=== PATIENT | female | born 1945 | race Caucasian/White ===

== ENCOUNTER → 2016-02-29 | Outpatient (CLI) | payer MEDICARE ==
[~2016-02-29] MED LIST: /WARF5TA OR; ACET65TA OR; ALLO100T PO; ALPR1TAB3 PO; AMBI5TAB OR; ATEN50TA2 PO; CARV12.5 PO; CO Q100C10 PO; CORE12.5 OR; ELIQ5TAB PO; GLUC850T OR; HYDR25TA6 PO; HYDR25TA8 PO; LEVO100T5 PO; LIPI20TA OR; LISI5TAB OR; LISI5TAB PO; LORA1TAB PO; MAGN64TASA PO; METF850T PO; OMEP40CA2 PO; POTA20TA PO; POTASSIUM CHLORIDE PO; SIMV20TA2 OR; SIMV40TA2 PO; VITA-122 PO; ZOLP10TA2 PO; aldactone; magnesium oxide; omeprazole; pradaxa
[2016-02-29 10:11] LABS: CALCIUM LEVEL 9.2 MG/DL (8.8-10.2); CREATININE FOR GFR 1.25 MG/DL (0.55-1.02); GLOMERULAR FILTRATION RATE 45.1 (>39)
[2016-02-29 10:12] LABS: ALBUMIN 4.1 GM/DL (3.2-5.2); PHOSPHORUS LEVEL 3.3 MG/DL (2.5-4.9)
[2016-02-29 10:24] LABS: POTASSIUM SERUM 5.7 MEQ/L (3.5-5.1)
== END ==
LOC: M LAB 09:08
PROVIDERS: ATTEND Physician Assistant
DX: I50.33 Acute on chronic diastolic (congestive) heart failure (principal)

== ENCOUNTER 2016-03-05 04:43 | Inpatient (IN) | payer MEDICARE ==
[~2016-03-05] VITALS: Ht 165.1 cm; Wt 85.8 kg
[~2016-03-05 04:43] MED LIST changes: -ALLO100T PO; -ALPR1TAB3 PO; -CARV12.5 PO; -CO Q100C10 PO; -ELIQ5TAB PO; -LEVO100T5 PO; -MAGN64TASA PO; -METF850T PO; -OMEP40CA2 PO; -SIMV40TA2 PO; -VITA-122 PO; -ZOLP10TA2 PO
[2016-03-05] MEDS ORDERED: MECLIZINE 12.5 MG TAB As Ordered ONE (05:32)
[2016-03-05 06:00] LABS: BASO # 0.1 K/mm3 (0.0-0.2); BASO % 0.8 % (0.0-1.0); EOS # 0.3 K/mm3 (0.0-0.50); EOS % 3.4 % (0.0-3.0); LARGE UNSTAINED CELL # 0.2 K/mm3 (0.0-0.4); LARGE UNSTAINED CELL % 1.8 % (0.0-4.0); LYMPH # 1.7 K/mm3 (1.5-4.5); LYMPH % 16.2 % (24.0-44.0); MEAN CORPUSCULAR HGB CONC 31.4 g/dl (32.0-36.5); MONO # 0.3 K/mm3 (0.0-0.8); MONO % 3.3 % (0.0-5.0); NEUTROPHILS # 6.9 K/mm3 (1.8-7.7); NEUTROPHILS % 74.5 % (36.0-66.0); PLATELET COUNT, AUTOMATED 228 k/mm3 (150-450); RED CELL DISTRIBUTION WIDTH 17.7 % (11.5-14.5); WHITE BLOOD COUNT 9.3 K/mm3 (4.0-10.0)
--- NOTE | 2016-03-05 06:10 | REPUSA ---
CLINICAL HISTORY: Headache. TECHNIQUE: Multiple axial CT images were obtained through the brain without IV contrast material. COMMENTS: Left frontal chronic encephalomalcia. There is normal configuration of sella turcica. There are no intra or extra-axial collections. There is no mass effect or midline shift. There is no evidence of hematoma formation. No hydrocephalus is p resent. The ventricles are symmetrical. No abnormal calcifications are present. There is diffuse age-appropriate cerebellar and cerebral atrophy with proportionally dilated ventricl es and cortical sulci. There are bilateral periventricular and subcortical white matter hypolucencies compatible with mild c hronic microvascular disease. Otherwise, no significant focal abnormalities are seen either in the posterior fossa or supratentoria l compartment. IMPRESSION: 1. Age-appropriate cerebellar and cerebral atrophy. Left frontal chronic encephalomalcia. 2. Mild chronic microvascular disease. 3. No evidence of acute intracranial pathology. No change from 11/17/2010. Thank you for your kind referral of this patient.
[2016-03-05 06:11] LABS: ANION GAP 10 MEQ/L (8-16); BLOOD UREA NITROGEN 29 MG/DL (7-18); CALCIUM LEVEL 9.3 MG/DL (8.8-10.2); CARBON DIOXIDE LEVEL 20 MEQ/L (21-32); CHLORIDE LEVEL 110 MEQ/L (98-107); CREATININE FOR GFR 0.94 MG/DL (0.55-1.02); GLOMERULAR FILTRATION RATE > 60.0 (>39); GLUCOSE, FASTING 157 MG/DL (83-110); POTASSIUM SERUM 5.1 MEQ/L (3.5-5.1); SODIUM LEVEL 140 MEQ/L (136-145)
[2016-03-05] MEDS ORDERED: CARVedilol 6.25 MG TAB As Ordered ONE (06:26)
[2016-03-05] MEDS ORDERED: LABETALOL HCL 100 MG/20 ML VIAL As Ordered ONE (06:39)
[2016-03-05] MEDS ORDERED: CARV12.5 PO (07:43)
[2016-03-05] MEDS ORDERED: LEVO100T5 PO (07:43)
[2016-03-05] MEDS ORDERED: ELIQ5TAB PO (07:43)
[2016-03-05] MEDS ORDERED: METF850T PO (07:43)
[2016-03-05] MEDS ORDERED: ZOLP10TA2 PO (07:43)
[2016-03-05] MEDS ORDERED: MAGN64TASA PO (07:43)
[2016-03-05] MEDS ORDERED: OMEP40CA2 PO (07:43)
[2016-03-05] MEDS ORDERED: ALLO100T PO (08:20)
[2016-03-05] MEDS ORDERED: ALPR1TAB3 PO (08:20)
[2016-03-05] MEDS ORDERED: SIMV40TA2 PO (08:20)
[2016-03-05] MEDS ORDERED: CO Q100C10 PO (08:22)
[2016-03-05] MEDS ORDERED: VITA-122 PO (08:22)
--- NOTE | 2016-03-05 08:30 | REP ---
PA and lateral chest: Comparison is 11/25/2010. Mild cardiomegaly and single lead pacemaker are again noted, unchanged. There are no acute infiltrates or pleural effusions. There are no masses. The stanislav, mediastinum, and bony thorax are unremarkable. Impression: No interval change. Chronic cardiomegaly and pacemaker are again noted. No acute cardiopulmonary findings are identified. Signed by Stu Harris MD 03/05/2016 08:22 A
[2016-03-05] MEDS: PANTOPRAZOLE 40MG TAB (PROTONIX) PO SCH (09:00)
[2016-03-05] MEDS: VITAMIN D 1,000 INTERNATIONAL UNITS TABLET PO SCH (09:00)
[2016-03-05] MEDS: APIXABAN 5 MG TAB (ELIQUIS) PO SCH ×2 (09:00→21:00)
[2016-03-05] MEDS ORDERED: CARVedilol 12.5 MG TAB PO SCH (09:00)
[2016-03-05] MEDS ORDERED: ONDANSETRON 4MG/2ML VIAL (J2405) IV PRN (09:45)
[2016-03-05] MEDS ORDERED: GLUCOSE 4 GM CHEW TABLET PO PRN (09:45)
[2016-03-05] MEDS ORDERED: zolPIDEM TARTRATE 10MG TAB PO PRN (09:45)
[2016-03-05] MEDS ORDERED: GLUCAGON FOR INJ 1 MG VIAL (J1610) SC PRN (09:45)
[2016-03-05] MEDS ORDERED: DEXTROSE 50% 50 ML SYRINGE IV PRN (09:45)
[2016-03-05 10:50] LABS: T UPTAKE 41 % (30-39); THYROXINE (T4) 14.5 UG/DL (4.5-12.0)
[2016-03-05] MEDS: HumaLOG INSULIN (NovoLOG) PER UNIT SC SCH ×3 (12:00→21:00)
[2016-03-05] MEDS: hydrALAZINE INJ 20 MG/ML VIAL IV SCH ×2 (12:00→17:29)
[2016-03-05] MEDS ORDERED: HumaLOG INSULIN (NovoLOG) PER UNIT As Ordered ONE (12:40)
[2016-03-05] MEDS: LEVOTHYROXINE 0.05 MG TAB (50 MCG) PO SCH (15:43)
[2016-03-05 16:00] VITALS: BP 185/83
--- NOTE | 2016-03-05 16:35 | HPEPDOC ---
General Date of Admission Mar 05, 2016 at 09:34 Primary Care Physician: Wojciech Dumont Attending Physician: SORAYA BACA MD Chief Complaint The patient is a 70-year-old female admitted with a reason for visit of Hypertensive Urgency Light Headed. Source: Patient, Family Exam Limitations: No limitations Timing/Duration: Day(s) (2) Severity: Moderate Associated Symptoms: Other (diarrhea) History of Present Illness 70 F h/o DMII, GERD, CVA mild right sided weakness, HLD, HTN, hypothyroid, afib on Eliquis, from home baseline ambulatory, presented with worsening lightheadedness for 2-3 days, having to hold on to wall, fall Oct 2015 without injury, recent adjustment of diuretics by Dr Davis's office. Reported 2 days of diarrhea 5 times daily and nausea with dry heaving no vomiting. Denied chest pain, extremities weakness,Denied sick contact or recent travel. No fever or chill Home Medications Scheduled (Co Q 10) 100 Mg Cap 100 MG PO DAILY (Reported) Allopurinol (Allopurinol) 100 Mg Tab 100 MG PO QHS (Reported) Apixaban Base (Eliquis) 5 Mg Tab 5 MG PO BID (Reported) Carvedilol (Carvedilol) 12.5 Mg Tab 12.5 MG PO BID (Reported) Cholecalciferol (Vitamin D3) 1,000 Unit Tab 1,000 UNIT PO DAILY (Reported) Levothyroxine Sodium (Synthroid) 100 Mcg Tab 100 MCG PO DAILY (Reported) Magnesium Chloride (Mag64) 64 Mg Tabcr 64 MG PO BID (Reported) Metformin Hydrochloride (Metformin HCl) 850 Mg Tab 850 MG PO BID (Reported) Omeprazole (Omeprazole) 40 Mg Cap 40 MG PO DAILY (Reported) Simvastatin - High Dose (Simvastatin) 40 Mg Tab 40 MG PO QHS (Reported) Scheduled PRN Alprazolam (Alprazolam) 1 Mg Tab 1 MG PO QID PRN PRN ANXIETY (Reported) Zolpidem Tartrate (Zolpidem Tartrate) 10 Mg Tab 10 MG PO QHS PRN PRN SLEEP ( Reported) Allergies Coded Allergies: Ciprofloxacin (Unverified Allergy, Unknown, HIVES, 03/05/16) Sulfa Drugs (Verified Allergy, Unknown, 05/14/12) Sulfa Drugs Cross Reactors (Verified Allergy, Unknown, 05/14/12) Past Medical History Medical History DMII, GERD, a fib, Gout, HCL, HTN, hypothyroidism, CVA Family History Significant Family History: Noncontributory Social History * Smoker: former Smoker (Quite 5 years ago, 1PPD for 30 years) Alcohol: denies Drugs: denies Recent Travel/Sick Contacts: Denies: Recent sick contacts, Recent travel Psychosocial History: No pertinent psych hx Review of Symptoms Constitutional: Denies: Chills, Fever, Night Sweats, Weakness Eyes: Denies: Pain, Vision change ENT: Denies: Ear Pain, Head Aches Skin: Denies: Lesions, Rash Pulmonary: Denies: Cough, Dyspnea Cardiovascular: Denies: Chest Pain, Orthopnea, Palpitations Gastrointestinal: Reports: Diarrhea, Nausea, Denies: Abdominal Pain, Vomiting Genitourinary: Denies: Dysuria, Frequency Hematologic: Denies: Bleeding Excessively, Bruising Endocrine: Denies: Polydipsia, Polyphagia Musculoskeletal: Denies: Neck Pain Neurological: Reports: Other Symptoms (lightheaded) Psych: Reports: Mood Normal Physical Examination General Exam: Positive: Alert, Cooperative, No Acute Distress Eye Exam: Positive: PERRLA ENT Exam: Positive: Atraumatic, Mucous membr. moist/pink Neck Exam: Positive: JVD, Supple Chest Exam: Positive: Clear to auscultation, Normal air movement Heart Exam: Positive: Normal S1, Normal S2, Rate Normal, Regular Rhythm Abdomen Exam: Positive: Normal bowel sounds, Soft, Negative: Mass, Tenderness Extremity Exam: Negative: Clubbing, Cyanosis, Edema Neuro Exam: Positive: Cranial Nerves 3-12 NL, Normal Speech Vital Signs 184/81 HR 65 RR 20 temp 97.2 Pul Ox 98% Laboratory Data Labs 24H Laboratory Tests 2 03/05/16 05:20: Anion Gap 10, White Blood Count 9.3, Red Blood Count 4.36, Hemoglobin 11.8L, Hematocrit 37.5, Mean Corpuscular Volume 86.0, Mean Corpuscular Hemoglobin 27.0 , Mean Corpuscular Hemoglobin Concent 31.4L, Red Cell Distribution Width 17.7H, Platelet Count 228, Neutrophils (%) (Auto) 74.5H, Lymphocytes (%) (Auto) 16.2L, Monocytes (%) (Auto) 3.3, Eosinophils (%) (Auto) 3.4H, Basophils (%) (Auto) 0.8 , Neutrophils # (Auto) 6.9, Lymphocytes # (Auto) 1.7, Monocytes # (Auto) 0.3, Eosinophils # (Auto) 0.3, Basophils # (Auto) 0.1, Blood Urea Nitrogen 29H, Creatinine 0.94, Sodium Level 140, Potassium Level 5.1, Chloride Level 110H, Carbon Dioxide Level 20L, Calcium Level 9.3, Total Creatine Kinase 31, Creatine Kinase MB 1.1, Creatine Kinase MB Relative Index 3.54, Free Thyroxine Index 5.9H , Glomerular Filtration Rate > 60.0, Large Unclassified Cells # 0.2, Large Unclassified Cells % 1.8, Thyroid Stimulating Hormone (TSH) 0.018L, Thyroxine ( T4) 14.5H, Triiodothyronine (T3) Uptake 41H, Troponin I < 0.02 03/05/16 12:01: Bedside Glucose (Misc Panel) 227H CBC/BMP Laboratory Tests 03/05/16 05:20 Calcium Level 9.3, Total Creatine Kinase 31, Red Blood Count 4.36, Mean Corpuscular Volume 86.0, Mean Corpuscular Hemoglobin 27.0, Mean Corpuscular Hemoglobin Concent 31.4 L, Red Cell Distribution Width 17.7 H, Neutrophils (%) ( Auto) 74.5 H, Lymphocytes (%) (Auto) 16.2 L, Monocytes (%) (Auto) 3.3, Eosinophils (%) (Auto) 3.4 H, Basophils (%) (Auto) 0.8, Neutrophils # (Auto) 6.9 , Lymphocytes # (Auto) 1.7, Monocytes # (Auto) 0.3, Eosinophils # (Auto) 0.3, Basophils # (Auto) 0.1 Microbiology Microbiology 03/05/16 Gastrointestinal Tract Panel (PCR), Received Pending 03/05/16 Stool Lactoferrin, Received Pending (1) Hypertensive urgency Status: Acute Assessment & Plan: c/w coreg, HCTZ added give labetalol in ER Hydralazine IV if sBP >160 goal bp for 24hr, SBP 140-160, DBP 90-100 CE x3 (2) Light headed Status: Acute Assessment & Plan: possibly related to HTN monitor BP PT eval repeat Ct tomorrow (3) Nausea Status: Acute Assessment & Plan: possibly related to HTN urgency monitor BP, zofran monitor (4) Diarrhea Status: Acute Assessment & Plan: stool and GI panel (5) Hypothyroid Status: Chronic Response to Treatment: Uncontrolled Assessment & Plan: elevated thyroid function thyroid profile appreciated need outpatient followup Synthroid adjusted (6) HTN (hypertension) Status: Acute Assessment & Plan: see above (7) DMII (diabetes mellitus, type 2) Status: Chronic Assessment & Plan: hold oral med insulin as per protocol f/u fs (8) CVA (cerebral vascular accident) Status: Chronic Assessment & Plan: pt supportive care on Eliquis (9) GERD (gastroesophageal reflux disease) Status: Chronic Assessment & Plan: ppi (10) Gout Status: Chronic (11) HLD (hyperlipidemia) Status: Chronic Assessment & Plan: statin (12) Afib Status: Chronic Assessment & Plan: coreg and Eliquis paced rhythm on EK Plan / VTE VTE Prophylaxis Ordered?: Yes (Eliquis) Plan Plan PT, repeat CT and BP control CASI MEDRANO MD Mar 05, 2016 16:34
[2016-03-05] MEDS ORDERED: hydroCHLOROthiazide 25 MG TAB As Ordered ONE (17:27)
[2016-03-05] MEDS ORDERED: hydrALAZINE INJ 20 MG/ML VIAL As Ordered ONE (17:27)
[2016-03-05] MEDS: hydroCHLOROthiazide 25 MG TAB PO SCH (17:29)
[2016-03-05 17:45] VITALS: BP 160/72
--- NOTE | 2016-03-05 17:49 | EDDOCDS ---
Nurse's Notes [facility] Name: Suzanne Naranjo Age: 70 yrs Sex: Female : 1945 Arrival Date: 03/05/2016 Time: 04:43 Bed 19 Private MD: Diagnosis: Essential (primary) hypertension-Hypertensive Urgency Presentation: 03/05 04:50 Presenting complaint: Patient states: dizziness and nausea since after dinner last nn1 night. Reports gait is unsteady since tonight as well. No vomiting at this time. Suicide/Homicide risk assessment- the patient denies having any suicidal and/or homicidal ideations and does not present with any other emotional, behavioral or mental health complaints. 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 Transition of care: patient was not received from another setting of care. 04:50 Acuity: HEATHER Level 3 nn1 04:50 Method Of Arrival: Walkin/Carried/Asstd nn1 07:56 Adult Sepsis Screening: The patient does not have new or worsening altered mentation. jc4 Patient's respiratory rate is less than 22. Systolic blood pressure is greater than 100. Patient has a qSOFA score of 0- Negative Sepsis Screen. Triage Assessment: 04:56 General: Appears in no apparent distress, Patient reports Dr. Pinzon (Dr. Davis' office) nn1 continues to change her meds. Reports having blood work taken last week that showed low potassium levels. Patient has appointment for recheck on Thursday. . Pain: Denies pain. The patient is triaged at the bedside. See Assessment in Nurses Notes section of ED record. GI: Reports diarrhea, nausea, Patient reports abdominal discomfort due to dry heaving. Reports dizziness. Derm: Skin is pink, warm & dry. Historical: - Allergies: Cipro PO; Codeine Sulfate; SULFA (SULFONAMIDES); - Home Meds: 1. levothyroxine 100 mcg Oral cap 1 cap once daily (Last dose: 03/04/2016 08:00) 2. simvastatin 40 mg Oral tab 1 tab nightly (Last dose: 03/04/2016 22:00) 3. carvedilol 12.5 mg oral tab 1 tab 2 times per day (Last dose: 03/04/2016 22:00) 4. metformin 850 mg Oral tab 1 tab 2 times per day (Last dose: 03/04/2016 22:00) 5. omeprazole 40 mg Oral cpDR 1 cap once daily (Last dose: 03/04/2016 13:00) 6. mag64 DR - 64mg 2x per day (Last dose: 03/04/2016 22:00) 7. Eliquis 5 mg oral tab 1 tab 2 times per day (Last dose: 03/04/2016 22:00) 8. allopurinol 100 mg Oral tab 1 tab nightly (Last dose: 03/04/2016 22:00) - PMHx: Diabetes - NIDDM: controlled; GERD; Gout; Hypercholesterolemia; Hypertension; Hypothyroidism; Stroke; - PSHx: Pacemaker Insertion; - Social history: Smoking status: Patient states was never smoker of tobacco. No barriers to communication noted, The patient speaks fluent Swazi, Speaks appropriately for age. - Family history: Not pertinent. - : The pt / caregiver states he / she is on anticoagulants: Eliquis The pt / caregiver states he / she is on anticoagulants: Home medication list is obtained from the patient, pill bottles. - Exposure Risk Screening:: None identified. Screenin:02 Screening information is obtained from the patient. Fall risk: At risk due to gait nn1 disturbance. Assistance ADL's: requires no assistance with activities of daily living. Abuse/DV Screen: The patient / caregiver reports he/she is: not in a situation that causes fear, pain or injury. Nutritional screening: Diabetic diet. Advance Directives: Currently, there is a health care proxy, Mely Naranjo, daughter . home support is adequate. Assessment: 05:21 General: Appears in no apparent distress, comfortable, well nourished, well groomed, kas2 Behavior is appropriate for age, cooperative. Pain: Denies pain. Neurological: Level of Consciousness is awake, alert, Oriented to person, place, time, Sulfur Burner are equal bilaterally Moves all extremities. Speech is normal, Facial symmetry appears normal, Pupils are PERRLA. Respiratory: Airway is patent Respiratory effort is even, unlabored, Respiratory pattern is regular, symmetrical, Breath sounds are clear bilaterally. Derm: Skin is intact, Skin is dry, Skin is pale, Skin temperature is warm. Injury Description: No known injury. 05:21 Cardiovascular: Capillary refill < 3 seconds Heart tones S1 S2 present Rhythm is sinus kas2 rhythm No ectopy. 05:30 General: Patient gone to CT via stretcher with tech.. kas2 05:40 General: Patient back from CT scan via stretcher with tech. Resettled in bed. . kas2 06:21 General: Appears in no apparent distress, comfortable, Behavior is appropriate for age, kas2 cooperative. Pain: Denies pain. Neurological: Level of Consciousness is awake, alert, Oriented to person, place, time. Cardiovascular: Rhythm is sinus rhythm No ectopy. Respiratory: Airway is patent Respiratory effort is even, unlabored, Respiratory pattern is regular, symmetrical. Derm: Skin is intact, Skin is dry, Skin is pink, warm & dry. Skin temperature is warm. 07:55 General: Appears in no apparent distress, comfortable, Behavior is cooperative, jc4 pleasant. Pain: Denies pain. Neurological: Level of Consciousness is awake, alert, Oriented to person, place, time, Sulfur Burner are equal bilaterally Moves all extremities. Speech is normal, Facial symmetry appears normal, Pupils are PERRLA. Cardiovascular: Rhythm is paced rhythm Chest pain is denied. Cardiovascular: Edema is absent. Respiratory: Airway is patent Respiratory effort is even, unlabored, Respiratory pattern is regular, symmetrical, Breath sounds are clear bilaterally. GI: Abdomen is non- distended Bowel sounds present X 4 quads. Derm: Skin is pink, warm & dry. 07:56 General: Dr. Ignacio in to examine patient. jc4 08:56 General: Patient resting in stretcher watching television, denies dizziness at this ja5 time, no needs at this time, call hendrickson in reach.. 09:50 General: Breakfast tray given. jc4 10:07 General: Patient is eating breakfast, no complaints of dizziness at this time. Call ja5 hendrickson in reach, no needs at this time.. 10:31 General: Patient ambulated to the bedside commode, steady gait, denies dizziness at ja5 this time.. 11:18 General: Patient is currently asleep in stretcher, side rails up, call hendrickson in reach.. ja5 12:40 General: Food tray delivered, patient set up in stretcher, no complaints at this time.. ja5 Vital Signs: 04:58 BP 194 / 77; Pulse 78; Resp 18; Temp 97.5; Pulse Ox 96% on R/A; Weight 82.1 kg; Height nn1 5 ft. 5 in. (165.10 cm); Pain 0/10; 05:10 BP 213 / 94 (auto/); ja5 05:11 BP 203 / 81 (auto/); kas2 05:11 Pulse 76 MON; Pulse Ox 99% ; kas2 05:12 Pulse 62 MON; Pulse Ox 99% ; ja5 05:26 BP 182 / 83 (auto/); kas2 05:26 Pulse 62 MON; Pulse Ox 99% ; kas2 05:38 BP 191 / 79 (auto/); kas2 05:39 Pulse 64 MON; Pulse Ox 99% ; kas2 05:40 BP 212 / 84 (auto/); kas2 05:40 Pulse 70 MON; Pulse Ox 99% ; kas2 05:41 BP 194 / 83 (auto/); kas2 05:41 Pulse 62 MON; Pulse Ox 99% ; kas2 05:45 BP 191 / 79 RA Supine; Pulse 77; kas2 05:45 BP 212 / 84 RA Sitting; Pulse 65; kas2 05:46 BP 194 / 83 RA Standing; Pulse 62; kas2 06:23 BP 198 / 79 (auto/); kas2 06:24 Pulse 72 MON; Pulse Ox 97% ; kas2 06:24 Resp 20; Temp 98.0(O); Pain 0/10; kas2 06:29 BP 205 / 78 (auto/); kas2 06:29 Pulse 76 MON; kas2 06:34 BP 191 / 88 (auto/); kas2 06:34 Pulse 62 MON; Pulse Ox 98% ; kas2 06:45 BP 180 / 79 (auto/); kas2 06:46 Pulse 68 MON; Pulse Ox 97% ; kas2 07:38 BP 184 / 81; Pulse 65; Resp 20; Temp 97.2(O); Pulse Ox 98% on R/A; Pain 0/10; jc4 07:38 BP 184 / 81 (auto/); ja5 07:38 Pulse 62 MON; ja5 09:06 BP 170 / 76 RA Supine (man/); ja5 11:59 BP 151 / 68 (auto/); jc4 11:59 Pulse 66 MON; jc4 04:58 Body Mass Index 30.12 (82.10 kg, 165.10 cm) nn1 Vitals: 04:58 Log In Time: March 05, 2016 at 04:47. nn1 ED Course: 04:46 Patient visited by Alicia Wen, Reg. hs2 04:46 Patient moved to Waiting hs2 04:51 Triage Initiated nn1 05:03 Iris Silver RN is Primary Nurse. nn1 05:03 Patient moved to 12 nn1 05:10 Patient name changed from Suzanne\S\Ellen\S\Dygert\S\ to Suzanne\S\Sid\S\Dygert. EDMS 05:15 Adam Brunson MD is Attending Physician. br1 05:22 Inserted saline lock: 20 gauge in left antecubital area and blood collected. The kas2 patient tolerated the procedure well. No procedures done that require assistance. 05:23 Patient visited by Iris Silver RN. kas2 05:23 monitor technician on. Pulse ox on. NIBP on. kas2 05:27 Patient visited by Adam Brunson MD. br1 05:31 Basic Metabolic Profile Sent. kas2 05:31 CBC with Diff Sent. kas2 05:31 Cardiac Injury Profile Sent. kas2 05:31 Troponin Sent. kas2 05:34 Patient visited by Iris Silver RN. kas2 05:40 [facility] Payment Agreement was scanned into [employer] and attached to record. pm4 05:47 Patient visited by Iris Silver RN. kas2 05:55 Patient visited by Chester Birmingham PCA. kb5 05:55 EKG done. (by ED staff). Reviewed by Adam Brunson MD. kb5 06:22 Patient visited by Iris Silver RN. kas2 06:32 CT Head Without Contrast Returned. EDMS 06:48 Patient visited by Iris Silver RN. kas2 07:01 Patient visited by Iris Silver RN. kas2 07:13 Arelis Sood is Hospitalizing Provider. br1 07:56 The patient / caregiver is instructed regarding the plan of care and ED course. jc4 07:57 Patient visited by Brianne Raymundo RN. jc4 08:23 Brianne Raymundo RN is Primary Nurse. jc4 08:43 Chest, 2 View (pa\E\lat) Returned. EDMS 08:57 Patient visited by Glenny Guajardo RN. ja5 09:56 Patient moved to Admit Hold [facility] 10:07 Patient visited by Glenny Guajardo RN. ja5 10:31 Patient visited by Glenny Guajardo RN. ja5 11:18 Patient visited by Glenny Guajardo RN. ja5 12:38 Patient visited by Glenny Guajardo RN. ja5 13:12 Primary Nurse role handed off by Brianne Raymundo, KATIE jc4 13:17 Patient moved to 19 [facility] 13:29 T-Sheet-- Draft Copy was scanned into [employer] and attached to record. 17:21 Primary Nurse role handed off by Iris Silver RN [facility] Administered Medications: 05:45 Drug: Meclizine 25 mg [meclizine 12.5 mg tablet (2 tabs)] Route: PO; kas2 06:32 Drug: carvedilol 12.5 mg [carvedilol 6.25 mg tablet (2 tabs)] Route: PO; kas2 06:47 Drug: Labetalol 10 mg [labetalol 5 mg/mL intravenous solution (2 mL)] Route: IVP; Rate: kas2 bolus; Infused Over: 2 mins; Site: left antecubital; Order Results: Lab Order: Basic Metabolic Profile; SPEC'M 03/05/16 05:20 Test: POTASSIUM SERUM; Value: 5.1; Range: 3.5-5.1; Units: MEQ/L; Status: F Test: CHLORIDE LEVEL; Value: 110; Range: 98-107; Abnormal: Above high normal; Units: MEQ/L; Status: F Test: CARBON DIOXIDE LEVEL; Value: 20; Range: 21-32; Abnormal: Below low normal; Units: MEQ/L; Status: F Test: ANION GAP; Value: 10; Range: 8-16; Units: MEQ/L; Status: F Test: CALCIUM LEVEL; Value: 9.3; Range: 8.8-10.2; Units: MG/DL; Status: F Test Note: ; Units are mL/min/1.73 m2 Chronic Kidney Disease Staging per NKF: Stage I & II GFR >=60 Normal to Mildly Decreased Stage III GFR 30-59 Moderately Decreased Stage IV GFR 15-29 Severely Decreased Stage V GFR <15 Very Little GFR Left ESRD GFR <15 on FLOW NURSE Test: GLUCOSE, FASTING; Value: 157; Range: 83-110; Abnormal: Above high normal; Units: MG/DL; Status: F Test: BLOOD UREA NITROGEN; Value: 29; Range: 7-18; Abnormal: Above high normal; Units: MG/DL; Status: F Test: CREATININE FOR GFR; Value: 0.94; Range: 0.55-1.02; Units: MG/DL; Status: F Test: GLOMERULAR FILTRATION RATE; Value: > 60.0; Range: >39; Status: F Test: SODIUM LEVEL; Value: 140; Range: 136-145; Units: MEQ/L; Status: F Test: T UPTAKE; Range: 30-39; Units: %; Status: I Test: THYROXINE (T4); Range: 4.5-12.0; Units: UG/DL; Status: I Test: FREE THYROXINE INDEX; Range: 1.3-4.8; Units: %; Status: I Test: THYROID STIMULATING HORMONE; Range: 0.358-3.740; Units: uIU/ML; Status: I Lab Order: CBC with Diff; SPEC'M 03/05/16 05:20 Test: WHITE BLOOD COUNT; Value: 9.3; Range: 4.0-10.0; Units: K/mm3; Status: F Test: RED BLOOD COUNT; Value: 4.36; Range: 4.00-5.40; Units: M/mm3; Status: F Test: HEMOGLOBIN; Value: 11.8; Range: 12.0-16.0; Abnormal: Below low normal; Units: g/dl; Status: F Test: HEMATOCRIT; Value: 37.5; Range: 36.0-47.0; Units: %; Status: F Test: MEAN CORPUSCULAR VOLUME; Value: 86.0; Range: 80.0-96.0; Units: fl; Status: F Test: MEAN CORPUSCULAR HEMOGLOBIN; Value: 27.0; Range: 27.0-33.0; Units: pg; Status: F Test: MEAN CORPUSCULAR HGB CONC; Value: 31.4; Range: 32.0-36.5; Abnormal: Below low normal; Units: g/dl; Status: F Test: RED CELL DISTRIBUTION WIDTH; Value: 17.7; Range: 11.5-14.5; Abnormal: Above high normal; Units: %; Status: F Test: PLATELET COUNT, AUTOMATED; Value: 228; Range: 150-450; Units: k/mm3; Status: F Test: NEUTROPHILS %; Value: 74.5; Range: 36.0-66.0; Abnormal: Above high normal; Units: %; Status: F Test: LYMPH %; Value: 16.2; Range: 24.0-44.0; Abnormal: Below low normal; Units: %; Status: F Test: MONO %; Value: 3.3; Range: 0.0-5.0; Units: %; Status: F Test: EOS %; Value: 3.4; Range: 0.0-3.0; Abnormal: Above high normal; Units: %; Status: F Test: BASO %; Value: 0.8; Range: 0.0-1.0; Units: %; Status: F Test: LARGE UNSTAINED CELL %; Value: 1.8; Range: 0.0-4.0; Units: %; Status: F Test: NEUTROPHILS #; Value: 6.9; Range: 1.8-7.7; Units: K/mm3; Status: F Test: LYMPH #; Value: 1.7; Range: 1.5-4.5; Units: K/mm3; Status: F Test: MONO #; Value: 0.3; Range: 0.0-0.8; Units: K/mm3; Status: F Test: EOS #; Value: 0.3; Range: 0.0-0.50; Units: K/mm3; Status: F Test: BASO #; Value: 0.1; Range: 0.0-0.2; Units: K/mm3; Status: F Test: LARGE UNSTAINED CELL #; Value: 0.2; Range: 0.0-0.4; Units: K/mm3; Status: F Lab Order: Cardiac Injury Profile; SPEC'M 03/05/16 05:20 Test: CPK CREATINE PHOSPHOKINASE; Value: 31; Range: 26-192; Units: U/L; Status: F Test: CK-MB VALUE MASS; Value: 1.1; Range: 0.0-3.6; Units: NG/ML; Status: F Test: MB/CK RELATIVE INDEX; Value: 3.54; Range: < OR =4; Status: F Test Note: ; DIAGNOSIS CRITERIA MMB ng/ml Relative Index (RI) NON-AMI < or = 5 N/A [place] > 5 < or = 4 AMI > 5 > 4 Lab Order: Troponin; [facility]03/05/16 05:20 Test: TROPONIN I; Value: < 0.02; Range: < 0.10; Units: NG/ML; Status: F Test Note: ; Troponin I Reference Interval for [employer]ens Mantis Vision LOCI: 99th Percentile= 0.00-0.045 ng/ml Risk Stratification: <= 0.10 ng/ml Decreased Risk for Adverse Clinical Events. 0.10-1.50 ng/ml Increased Risk for Adverse Clinical Events. Evaluation of additional criterion and/or repeat testing in 2-6 hours is suggested to rule out myocardial damage. >= 1.50 ng/ml Indicative of Myocardial Injury. Lab Order: STOOL POLYS; [facility]03/05/16 15:31 Test: STOOL LACTOFERRIN-polys by ICA; Value: LACTOFERRIN RESULTS POSITIVE; Abnormal: Abnormal; Status: F Lab Order: THYROID PROFILE; [facility]03/05/16 05:20 Test: T UPTAKE; Value: 41; Range: 30-39; Abnormal: Above high normal; Units: %; Status: F Test: THYROXINE (T4); Value: 14.5; Range: 4.5-12.0; Abnormal: Above high normal; Units: UG/DL; Status: F Test: FREE THYROXINE INDEX; Value: 5.9; Range: 1.3-4.8; Abnormal: Above high normal; Units: %; Status: F Test: THYROID STIMULATING HORMONE; Value: 0.018; Range: 0.358-3.740; Abnormal: Below low normal; Units: uIU/ML; Status: F Lab Order: Fingerstick Blood Sugar; [facility]03/05/16 12:01 Test: BEDSIDE GLUCOSE; Value: 227; Range: 83-110; Abnormal: Above high normal; Units: MG/DL; Status: F Lab Order: Fingerstick Blood Sugar; [facility]03/05/16 17:14 Test: BEDSIDE GLUCOSE; Value: 102; Range: 83-110; Units: MG/DL; Status: F Radiology Order: Chest, 2 View (pa\E\lat) Test: Chest, 2 View (pa\E\lat) REASON FOR EXAMINATION: Shortness of Breath; PA and lateral chest:; ; Comparison is 11/25/2010.; ; Mild cardiomegaly and single lead pacemaker are again noted, unchanged.; ; There are no acute infiltrates or pleural effusions. There are no masses.; ; The stanislav, mediastinum, and bony thorax are unremarkable.; ; Impression:; ; No interval change. Chronic cardiomegaly and pacemaker are again noted.; ; No acute cardiopulmonary findings are identified.; ; ; Signed by; Stu Harris MD 03/05/2016 08:22 A; Radiology Order: CT Head Without Contrast Test: CT Head Without Contrast REASON FOR EXAMINATION: CVA >4.5hrs; ; CLINICAL HISTORY: Headache.; TECHNIQUE: Multiple axial CT images were obtained through the brain without IV contrast material.; COMMENTS:; Left frontal chronic encephalomalcia.; There is normal configuration of sella turcica. There are no intra or extra-axial collections. There; is no mass effect or midline shift. There is no evidence of hematoma formation. No hydrocephalus is p; resent. The ventricles are symmetrical. No abnormal calcifications are present.; There is diffuse age-appropriate cerebellar and cerebral atrophy with proportionally dilated ventricl; es and cortical sulci.; There are bilateral periventricular and subcortical white matter hypolucencies compatible with mild c; hronic microvascular disease.; Otherwise, no significant focal abnormalities are seen either in the posterior fossa or supratentoria; l compartment.; IMPRESSION:; 1. Age-appropriate cerebellar and cerebral atrophy. Left frontal chronic encephalomalcia.; 2. Mild chronic microvascular disease.; 3. No evidence of acute intracranial pathology. No change from 11/17/2010.; Thank you for your kind referral of this patient.; ; ; Outcome: 07:13 Decision to Hospitalize by Provider. br1 17:11 Discharge Assessment: Patient awake and alert. Oriented to person, place and time. aa3 Patient verbalized understanding of disposition instructions. Patient has no functional deficits. patient administered narcotics - no. The following High Risk Discharge criteria are identified: None. Admitted to PCU accompanied by nurse, accompanied by tech, via stretcher, on monitor, with chart. Condition: good. CT Study completed. Admission hand-off: Report called to Charley Louis RN. Property :Personal belongings accompany Pt. 17:47 Patient left the ED. kc3 Signatures: Dispatcher [employer] EDRenae Callejas, RN RN Haylie Javed RN Sheryl Rajput mcp, Reg Reg gb Valencia, Chester, CLOTH BALER CLOTH BALER kb5 Adam Brunson MD MD br1 Castle, Jennifer RN RN jc4 Jacque Kovacs RN RN dsf Asselin, Abby, RN RN aa3 Rubi ReyesRN RN nn1 Marilin LewisRN RN kc3 Alicia Wen, Reg Reg hs2 Iris SilverRN KATIE [facility] Tiago Escobar, Reg Reg pm4 Glenny Guajardo,RN RN ja5 Corrections: (The following items were deleted from the chart) 05:49 05:21 Cardiovascular: Capillary refill < 3 seconds Heart tones S1 S2 present Rhythm is kas2 sinus rhythm No ectopy. [facility] 07:37 04:55 Home Meds: levothyroxine 100 mcg oral cap 1 cap once daily; [facility] 07:37 04:55 Home Meds: simvastatin 40 mg oral tab 1 tab once daily; [facility] 07:37 04:55 Home Meds: carvedilol 12.5 mg oral tab 1 tab 2 times per day; [facility] 07:37 04:55 Home Meds: metformin 850 mg Oral tab 1 tab 2 times per day; [facility] 07:37 04:55 Home Meds: omeprazole 40 mg oral cpDR 1 cap once daily; [facility] 07:37 04:55 Home Meds: mag64 DR - 64mg 2x per day; [facility] 07:37 04:55 Home Meds: Eliquis 5 mg oral tab 1 tab 2 times per day; [facility] 4 07:37 04:55 Home Meds: allopurinol 100 mg oral tab 1 tab once daily; [facility] MTDD
--- NOTE | 2016-03-05 17:49 | EDDOCDS ---
Physician Documentation [facility] Name: Suzanne Naranjo Age: 70 yrs Sex: Female : 1945 Arrival Date: 03/05/2016 Time: 04:43 Bed 19 Private MD: Disposition: 03/05/16 07:13 Hospitalization ordered by Arelis Sood for Inpatient Admission. Preliminary diagnosis is Essential (primary) hypertension - Hypertensive Urgency. - Bed requested for PCU. - Status is Inpatient Admission. kc3 - Condition is Stable. - Problem is new. - Symptoms are unchanged. Historical: - Allergies: Cipro PO; Codeine Sulfate; SULFA (SULFONAMIDES); - Home Meds: 1. levothyroxine 100 mcg Oral cap 1 cap once daily (Last dose: 03/04/2016 08:00) 2. simvastatin 40 mg Oral tab 1 tab nightly (Last dose: 03/04/2016 22:00) 3. carvedilol 12.5 mg oral tab 1 tab 2 times per day (Last dose: 03/04/2016 22:00) 4. metformin 850 mg Oral tab 1 tab 2 times per day (Last dose: 03/04/2016 22:00) 5. omeprazole 40 mg Oral cpDR 1 cap once daily (Last dose: 03/04/2016 13:00) 6. mag64 DR - 64mg 2x per day (Last dose: 03/04/2016 22:00) 7. Eliquis 5 mg oral tab 1 tab 2 times per day (Last dose: 03/04/2016 22:00) 8. allopurinol 100 mg Oral tab 1 tab nightly (Last dose: 03/04/2016 22:00) - PMHx: Diabetes - NIDDM: controlled; GERD; Gout; Hypercholesterolemia; Hypertension; Hypothyroidism; Stroke; - PSHx: Pacemaker Insertion; - Social history: Smoking status: Patient states was never smoker of tobacco. No barriers to communication noted, The patient speaks fluent German, Speaks appropriately for age. - Family history: Not pertinent. - : The pt / caregiver states he / she is on anticoagulants: Eliquis The pt / caregiver states he / she is on anticoagulants: Home medication list is obtained from the patient, pill bottles. - Exposure Risk Screening:: None identified. Vital Signs: 03/05 04:58 BP 194 / 77; Pulse 78; Resp 18; Temp 97.5; Pulse Ox 96% on R/A; Weight 82.1 kg / 181 nn1 lbs; Height 5 ft. 5 in. (165.10 cm); Pain 0/10; 05:10 BP 213 / 94 (auto/); ja5 05:11 BP 203 / 81 (auto/); kas2 05:11 Pulse 76 MON; Pulse Ox 99% ; kas2 05:12 Pulse 62 MON; Pulse Ox 99% ; ja5 05:26 BP 182 / 83 (auto/); kas2 05:26 Pulse 62 MON; Pulse Ox 99% ; kas2 05:38 BP 191 / 79 (auto/); kas2 05:39 Pulse 64 MON; Pulse Ox 99% ; kas2 05:40 BP 212 / 84 (auto/); kas2 05:40 Pulse 70 MON; Pulse Ox 99% ; kas2 05:41 BP 194 / 83 (auto/); kas2 05:41 Pulse 62 MON; Pulse Ox 99% ; kas2 05:45 BP 191 / 79 RA Supine; Pulse 77; kas2 05:45 BP 212 / 84 RA Sitting; Pulse 65; kas2 05:46 BP 194 / 83 RA Standing; Pulse 62; kas2 06:23 BP 198 / 79 (auto/); kas2 06:24 Pulse 72 MON; Pulse Ox 97% ; kas2 06:24 Resp 20; Temp 98.0(O); Pain 0/10; kas2 06:29 BP 205 / 78 (auto/); kas2 06:29 Pulse 76 MON; kas2 06:34 BP 191 / 88 (auto/); kas2 06:34 Pulse 62 MON; Pulse Ox 98% ; kas2 06:45 BP 180 / 79 (auto/); kas2 06:46 Pulse 68 MON; Pulse Ox 97% ; kas2 07:38 BP 184 / 81; Pulse 65; Resp 20; Temp 97.2(O); Pulse Ox 98% on R/A; Pain 0/10; jc4 07:38 BP 184 / 81 (auto/); ja5 07:38 Pulse 62 MON; ja5 09:06 BP 170 / 76 RA Supine (man/); ja5 11:59 BP 151 / 68 (auto/); jc4 11:59 Pulse 66 MON; jc4 04:58 Body Mass Index 30.12 (82.10 kg, 165.10 cm) nn1 MDM: 05:12 ECG WITH READING ER PHYS+CARDIAG ordered. EDMS 05:28 Wedding Transportation Driver/Pulse Ox/q 30 min VS ordered. br1 05:28 IV Saline Lock ordered. br1 05:28 Rhythm Strip to chart ordered. br1 05:28 Undress patient appropriately for examination ordered. br1 05:28 Orthostatic VS ordered. br1 05:28 Meclizine 25 mg PO once ordered. br1 05:29 Basic Metabolic Profile Ordered. EDMS 05:29 CBC with Diff Ordered. EDMS 05:29 Cardiac Injury Profile Ordered. EDMS 05:29 Troponin Ordered. EDMS 05:30 Chest, 2 View (pa\E\lat) Ordered. EDMS 05:30 CT Head Without Contrast Ordered. EDMS 05:39 Financial registration complete. pm4 05:40 [facility] Payment Agreement was scanned into [employer] and attached to record. pm4 06:20 Basic Metabolic Profile Reviewed. br1 06:20 CBC with Diff Reviewed. br1 06:20 Cardiac Injury Profile Reviewed. br1 06:20 Troponin Reviewed. br1 06:22 carvedilol 12.5 mg PO once ordered. br1 06:26 Labetalol 10 mg IVP at bolus once over 2 mins ordered. br1 06:58 BED REQUEST+ADM ordered. EDMS 09:38 PHYSICAL THERAPY EVAL & TREAT ordered. EDMS 09:38 Admission / Observation Status ordered. EDMS 09:38 CONSISTENT CARBOHYDRATES ordered. EDMS 09:40 GASTROINTESTINAL (GI) PANEL Ordered. EDMS 09:41 STOOL POLYS Ordered. EDMS 09:41 GASTROINTESTINAL (GI) PANEL Ordered. EDMS 09:45 CT Head without contrast Ordered. EDMS 10:27 THYROID PROFILE Ordered. EDMS 12:16 Fingerstick Blood Sugar Ordered. EDMS 12:18 Attending Doctor Change: ordered. EDMS 13:29 T-Sheet-- Draft Copy was scanned into [employer] and attached to record. gb 17:26 Fingerstick Blood Sugar Ordered. EDMS Administered Medications: 05:45 Drug: Meclizine 25 mg [meclizine 12.5 mg tablet (2 tabs)] Route: PO; kas2 06:32 Drug: carvedilol 12.5 mg [carvedilol 6.25 mg tablet (2 tabs)] Route: PO; kas2 06:47 Drug: Labetalol 10 mg [labetalol 5 mg/mL intravenous solution (2 mL)] Route: IVP; Rate: kas2 bolus; Infused Over: 2 mins; Site: left antecubital; Signatures: Dispatcher [employer] EDMS Renae Lemus RN RN kpj Sheryl Wood, Reg Reg gb Adam Brunson MD MD br1 Brianne Raymundo RN RN jc4 Rubi Reyes RN RN nn1 Marilin Lewis RN RN kc3 Tiago Escobar, Reg Reg pm4 Iris Silver RN kas2 The chart was reviewed and I authenticate all verbal orders and agree with the evaluation and treatment provided.Corrections: (The following items were deleted from the chart) 07:37 04:55 Home Meds: levothyroxine 100 mcg oral cap 1 cap once daily; 1 jc4 07:37 04:55 Home Meds: simvastatin 40 mg oral tab 1 tab once daily; nn jc4 07:37 04:55 Home Meds: carvedilol 12.5 mg oral tab 1 tab 2 times per day; nn1 jc4 07:37 04:55 Home Meds: metformin 850 mg Oral tab 1 tab 2 times per day; nn1 jc4 07:37 04:55 Home Meds: omeprazole 40 mg oral cpDR 1 cap once daily; nn1 jc4 07:37 04:55 Home Meds: mag64 DR - 64mg 2x per day; nn1 jc4 07:37 04:55 Home Meds: Eliquis 5 mg oral tab 1 tab 2 times per day; nn1 jc4 07:37 04:55 Home Meds: allopurinol 100 mg oral tab 1 tab once daily; nn1 jc4 10:27 09:46 THYROID PROFILE ordered. EDMS EDMS 15:58 09:40 OSMOLARITY STOOL ordered. EDMS EDMS 15:58 09:40 STOOL SODIUM ordered. EDMS EDMS 15:58 09:40 STOOL POTASSIUM ordered. EDMS EDMS 15:58 09:40 STOOL CHLORIDE ordered. EDMS EDMS Attachments: 05:40 [facility] Payment Agreement pm4 13:29 T-Sheet-- Draft Copy gb MTDD
[2016-03-05] MEDS: ACETAMINOPHEN TAB 650MG DOSE (2X325MG) PO PRN (18:35)
[2016-03-05 20:00] VITALS: BP 136/63
[2016-03-05] MEDS: ALLOPURINOL 100 MG TAB PO SCH (21:00)
[2016-03-05] MEDS: SIMVASTATIN 40 MG TAB PO SCH (21:00)
[2016-03-05] MEDS: CARVedilol 12.5 MG TAB PO SCH (21:00)
[2016-03-06] VITALS (7 sets, daily range): BP systolic 100–168; BP diastolic 55–77
[2016-03-06 05:53] LABS: MEAN CORPUSCULAR HEMOGLOBIN 27.9 pg (27.0-33.0); MEAN CORPUSCULAR HGB CONC 32.4 g/dl (32.0-36.5); RED CELL DISTRIBUTION WIDTH 18.1 % (11.5-14.5); WHITE BLOOD COUNT 8.3 K/mm3 (4.0-10.0)
[2016-03-06 05:57] LABS: CALCIUM LEVEL 9.2 MG/DL (8.8-10.2); CREATININE FOR GFR 1.07 MG/DL (0.55-1.02); MAGNESIUM LEVEL 1.4 MG/DL (1.8-2.4); POTASSIUM SERUM 4.5 MEQ/L (3.5-5.1)
[2016-03-06] MEDS ORDERED: LEVOTHYROXINE 0.1 MG TAB (100 MCG) PO SCH (06:00)
[2016-03-06] MEDS ORDERED: LEVOTHYROXINE 0.05 MG TAB (50 MCG) PO SCH (06:00)
[2016-03-06] MEDS: LEVOTHYROXINE 0.05 MG TAB (50 MCG) PO SCH (06:40)
[2016-03-06] MEDS: hydrALAZINE INJ 20 MG/ML VIAL IV SCH ×4 (06:41→17:13)
--- NOTE | 2016-03-06 06:43 | ECGEPIP ---
Stationary ECG Study [facility] - ED Test Date: 2016-03-05 Pat Name: MUKESH GUERRERO Department: Room: - Gender: F Carton Wrapper: NIKKIE : 1945 Requested By: SHEFALI Matthews Order Number: [id number] Reading MD: Sarah Edwards Measurements Intervals Protection Rate: 64 P: AR: 0 QRS: 102 QRSD: 100 T: -74 QT: 404 QTc: 419 Interpretive Statements ATRIAL FIBRILLATION ELECTRONIC VENTRICULAR PACEMAKER -- CONTOUR ANALYSIS BASED ON INTRINSIC RHYTHM MARKED RIGHT AXIS DEVIATION ST DEVIATION AND MODERATE T-WAVE ABNORMALITY, CONSIDER ANTEROLATERAL ISCHEMIA ST DEVIATION AND MODERATE T-WAVE ABNORMALITY, CONSIDER INFERIOR ISCHEMIA CLINICAL CORRELATION NO PRIOR FOR COMPARISON Electronically Signed On 03-06-2016 6:43:08 EST by Sarah Edwards
[2016-03-06] MEDS: ALPRAZolam 0.5 MG TAB PO PRN ×2 (07:27→20:35)
[2016-03-06] MEDS: hydroCHLOROthiazide 25 MG TAB PO SCH (08:07)
[2016-03-06] MEDS: HumaLOG INSULIN (NovoLOG) PER UNIT SC SCH ×4 (08:07→20:34)
[2016-03-06] MEDS: VITAMIN D 1,000 INTERNATIONAL UNITS TABLET PO SCH (08:07)
[2016-03-06] MEDS: PANTOPRAZOLE 40MG TAB (PROTONIX) PO SCH (08:07)
[2016-03-06] MEDS: APIXABAN 5 MG TAB (ELIQUIS) PO SCH ×2 (08:07→20:35)
[2016-03-06] MEDS: ACETAMINOPHEN TAB 650MG DOSE (2X325MG) PO PRN (08:07)
[2016-03-06] MEDS: CARVedilol 12.5 MG TAB PO SCH ×2 (08:09→20:35)
[2016-03-06] MEDS ORDERED: MAG SULF 1GM/100ML (MAG RUN) 1 GM in APPROPRIATE DILUENT 1 EA IV ONE (09:00)
[2016-03-06] MEDS: MAGNESIUM OXIDE 400 MG TAB (MAG-OX) PO SCH ×3 (09:35→20:35)
--- NOTE | 2016-03-06 09:59 | REP ---
CT HEAD WITHOUT CONTRAST: HISTORY: Dizziness. COMPARISON: 03/05/2016 An area of decreased attenuation is present in the anterior left temporal and posterior left frontal lobe. There is dilatation of overlying cortical sulci. This represents an old infarction. Areas of decreased attenuation are present in the periventricular white matter. This represents small vessel ischemic disease. There is no intraparenchymal hemorrhage, mass or midline shift. The ventricular system and cortical sulci are dilated consistent with minimal volume loss. There is no extracerebral collection. The visualized sinuses are clear. IMPRESSION: 1. Old left frontotemporal lobe infarction. 2. Small vessel ischemic disease. 3. Minimal volume loss. Signed by Thai Damico MD 03/06/2016 10:08 A
[2016-03-06] MEDS: ALLOPURINOL 100 MG TAB PO SCH (20:34)
[2016-03-06] MEDS: SIMVASTATIN 40 MG TAB PO SCH (20:35)
--- NOTE | 2016-03-06 22:13 | IPN ---
DATE: 03/06/2016 Patient seen and examined. No acute events overnight. Patient reported lightheadedness much improved. Able to do ambulation with physical therapy, but is very forgetful. Does not know why she is having a repeat CT scan, even though yesterday it was told to the patient that we are trying to rule out stroke. Patient denies any chest pain, pressure, or discomfort. Denies any shortness of breath. VITAL SIGNS: Temperature 95.7, pulse 64, respirations 18, blood pressure 123/55, pulse oximetry 94% on room air . LABORATORY DATA: WBC 8.2, hemoglobin and hematocrit 11.6/35.9, platelets 242. Chemistry: Sodium 142, potassium 4.5, chloride 110, bicarbonate 23, BUN 28, creatinine 1.07, magnesium 1.4. CT scan of the brain repeat shows old left frontotemporal lobe infarct. Small-vessel ischemic disease. Minimal volume loss. PHYSICAL EXAMINATION: GENERAL: Patient alert, cooperative in no acute distress. HEENT: Normocephalic, atraumatic. Pupils equal, round, and reactive. Moist mucous membranes. NECK: Supple. No jugular venous distention (JVD). PULMONARY: Bilaterally clear to auscultation. CARDIAC: Regular rate and rhythm. Normal S1, S2. ABDOMEN: Soft, nontender, nondistended. Positive bowel sounds. EXTREMITIES: No clubbing, cyanosis, and edema. NEUROLOGIC: Cranial nerves II-XII grossly intact. Normal speech but is very forgetful. ASSESSMENT AND PLAN: This is a 70-year-old female patient with underlying medical history of type 2 diabetes, gastroesophageal reflux disease (GERD), cerebrovascular accident (CVA) with mild right-sided weakness, hypertension, dyslipidemia, hypothyroidism, atrial fibrillation, on Eliquis, from home, baseline ambulatory, admitted with hypertensive urgency. 1. Hypertensive urgency. Continue Coreg. Hydrochlorothiazide has been added. Followup kidney function. Will give hydralazine, systolic blood pressure (SBP) greater than 160. Cardiac enzymes have been appreciated. Negative. Patient currently comfortable. 2. Lightheadedness, possible related to hypertension. Currently resolved. Physical therapy. Monitor blood pressure. Repeat CT scan appreciated. 3. Nausea. Currently resolved. Likely related to hypertensive urgency. Monitor blood pressure (BP). Zofran as needed. 4. Diarrhea. GI panel negative. Stool for lactoferrin has been positive, which could potentially suggest inflammatory bowel disease. Will recommend outpatient GI followup. 5. Hypothyroidism. Patient with elevated thyroid profile. Will need outpatient followup. Synthroid dose has been reduced. Need outpatient followup for hypothyroidism. 6. Hypertension. Continue medication as ordered. Adjust as needed. Followup kidney function. 7. Type 2 diabetes. Holding oral insulin as per protocol. 8. Cerebrovascular accident (CVA), chronic. Supportive care. Continue Eliquis. 9. Atrial fibrillation, chronic. Continue beta robert and Eliquis. Patient currently paced rhythm. 10. Gastroesophageal reflux disease (GERD). Continue proton pump inhibitor (PPI). 11. Gout. Continue home medication. 12. Dyslipidemia. Continue statin. 13. Deep vein thrombosis (DVT) prophylaxis. Patient is Eliquis. DISPOSITION PLANNING: Pending physical therapy. Patient will need followup with gastroenterology for chronic diarrhea with positive lactoferrin and followup with primary care provider for further adjustment of blood pressure. Patient sees Dr. Davis' group for cardiology. Case was discussed with family also given patient's worsening dementia. Recommend family to administer all medications and deal with the physicians in terms of medication administration.
[2016-03-06] MEDS ORDERED: SLF 3 ML SYR IV PRN (22:30)
[2016-03-07 03:25] VITALS: BP 138/73
[2016-03-07] MEDS: hydrALAZINE INJ 20 MG/ML VIAL IV SCH ×2 (05:00)
[2016-03-07] MEDS: SLF 3 ML SYR IV SCH ×2 (05:03→13:14)
[2016-03-07] MEDS: LEVOTHYROXINE 0.05 MG TAB (50 MCG) PO SCH (05:03)
[2016-03-07 05:59] LABS: MEAN CORPUSCULAR HEMOGLOBIN 27.9 pg (27.0-33.0); MEAN CORPUSCULAR HGB CONC 33.6 g/dl (32.0-36.5); RED CELL DISTRIBUTION WIDTH 18.4 % (11.5-14.5); WHITE BLOOD COUNT 8.5 K/mm3 (4.0-10.0)
[2016-03-07 06:10] LABS: ANION GAP 10 MEQ/L (8-16); BLOOD UREA NITROGEN 30 MG/DL (7-18); CALCIUM LEVEL 8.7 MG/DL (8.8-10.2); CARBON DIOXIDE LEVEL 23 MEQ/L (21-32); CHLORIDE LEVEL 110 MEQ/L (98-107); CREATININE FOR GFR 0.93 MG/DL (0.55-1.02); GLOMERULAR FILTRATION RATE > 60.0 (>39); GLUCOSE, FASTING 116 MG/DL (83-110); MAGNESIUM LEVEL 1.8 MG/DL (1.8-2.4); POTASSIUM SERUM 4.3 MEQ/L (3.5-5.1); SODIUM LEVEL 143 MEQ/L (136-145)
[2016-03-07] MEDS ORDERED: LEVO50TA5 PO (07:37)
[2016-03-07] MEDS ORDERED: LISI10TA4 PO (07:37)
[2016-03-07] MEDS ORDERED: HYDR25TAB PO (07:37)
--- NOTE | 2016-03-07 07:59 | IPN ---
DATE: 03/07/2016 The patient seen and examined at the bedside. The chart has been reviewed. This morning, the patient has no complains of chest pain, pressure and tightness, shortness of breath, palpitations, lightheadedness, or dizziness. The patient is ambulating well and passed a home safety evaluation yesterday. She is tolerating her diet. No complaints of nausea, vomiting, abdominal pain, diarrhea. Vitals: Temperature 97, pulse 64, respiratory rate 18, blood pressure 130/60, 98% on room air. Generally, patient is awake, alert, oriented times three, answering questions appropriately, with no respiratory distress or conversational dyspnea. No jugular venous distention. Pupils round, reactive. Moist mucous membranes. Lungs are clear to auscultation bilaterally. No wheezing, rales or rhonchi. Heart: S1, S2, sinus rhythm. Abdomen is soft, nontender, nondistended. Positive bowel sounds. Extremities: No cyanosis, clubbing or pitting edema. Laboratory Data: CBC, metabolic panel, microbiology have been reviewed. ASSESSMENT AND PLAN: This is a 70-year-old female with history of type 2 diabetes, reflux, CVA with right sided weakness, hypertension, dyslipidemia, atrial fibrillation on chronic Eliquis, hypothyroidism, baseline ambulatory, admitted with hypertensive urgency. IMPRESSIONS: 1. Hypertensive urgency. The patient is on Coreg, hydrochlorothiazide and intravenous hydralazine with good control. Will transition to oral medication. Therefore, will discontinue patient's hydralazine and start on lisinopril. Cardiac enzymes were negative. CT of the head was negative. 2. Lightheadedness. Most likely secondary to hypertension, currently resolved. 3. Nausea, resolved. Most likely secondary to hypertensive urgency. 4. Diarrhea. GI panel is negative. Patient will have GI followup. 5. Hypothyroidism. Elevated thyroid profile. Will need outpatient followup. Synthroid has been reduced. 6. Hypertension, improved. Will change to oral lisinopril today. 7. Type 2 diabetes. Insulin per protocol. Consistent carbohydrate diet. 8. CVA. Chronic supportive care. Continue with Eliquis. 9. Atrial fibrillation, rate controlled. Continue on Coreg and Eliquis. Paced rhythm. 10. Reflux, on proton pump inhibitor (PPI). 11. Gout, on home medication. 12. Dyslipidemia, on statin. 13. Deep vein thrombosis (DVT) prophylaxis, on Eliquis. DISPOSITION: Once blood pressure is stable on oral lisinopril, patient may be discharged home as she has passed a home safety evaluation with outpatient followup with Dr. Davis in a weeks' time. NESSAD
[2016-03-07 08:00] VITALS: BP 116/57
[2016-03-07] MEDS: APIXABAN 5 MG TAB (ELIQUIS) PO SCH (08:17)
[2016-03-07] MEDS: PANTOPRAZOLE 40MG TAB (PROTONIX) PO SCH (08:17)
[2016-03-07] MEDS: HumaLOG INSULIN (NovoLOG) PER UNIT SC SCH ×2 (08:17→12:00)
[2016-03-07] MEDS: ALPRAZolam 0.5 MG TAB PO PRN (08:18)
[2016-03-07] MEDS: VITAMIN D 1,000 INTERNATIONAL UNITS TABLET PO SCH (08:18)
[2016-03-07] MEDS: MAGNESIUM OXIDE 400 MG TAB (MAG-OX) PO SCH (08:19)
[2016-03-07] MEDS: hydroCHLOROthiazide 25 MG TAB PO SCH (08:19)
[2016-03-07 08:20] VITALS: BP 116/62
[2016-03-07] MEDS: CARVedilol 12.5 MG TAB PO SCH (08:20)
[2016-03-07] MEDS ORDERED: LISINOPRIL 10 MG TAB PO SCH (09:00)
[2016-03-07 12:00] VITALS: BP 102/58
--- NOTE | 2016-03-07 18:49 | EDDOCDS ---
Physician Documentation [facility] Name: Suzanne Naranjo Age: 70 yrs Sex: Female : 1945 Arrival Date: 03/05/2016 Time: 04:43 Bed 19 Private MD: Disposition: 03/05/16 07:13 Hospitalization ordered by Arelis Sood for Inpatient Admission. Preliminary diagnosis is Essential (primary) hypertension - Hypertensive Urgency. - Bed requested for PCU. - Status is Inpatient Admission. kc3 - Condition is Stable. - Problem is new. - Symptoms are unchanged. Historical: - Allergies: Cipro PO; Codeine Sulfate; SULFA (SULFONAMIDES); - Home Meds: 1. levothyroxine 100 mcg Oral cap 1 cap once daily (Last dose: 03/04/2016 08:00) 2. simvastatin 40 mg Oral tab 1 tab nightly (Last dose: 03/04/2016 22:00) 3. carvedilol 12.5 mg oral tab 1 tab 2 times per day (Last dose: 03/04/2016 22:00) 4. metformin 850 mg Oral tab 1 tab 2 times per day (Last dose: 03/04/2016 22:00) 5. omeprazole 40 mg Oral cpDR 1 cap once daily (Last dose: 03/04/2016 13:00) 6. mag64 DR - 64mg 2x per day (Last dose: 03/04/2016 22:00) 7. Eliquis 5 mg oral tab 1 tab 2 times per day (Last dose: 03/04/2016 22:00) 8. allopurinol 100 mg Oral tab 1 tab nightly (Last dose: 03/04/2016 22:00) - PMHx: Diabetes - NIDDM: controlled; GERD; Gout; Hypercholesterolemia; Hypertension; Hypothyroidism; Stroke; - PSHx: Pacemaker Insertion; - Social history: Smoking status: Patient states was never smoker of tobacco. No barriers to communication noted, The patient speaks fluent Tongan, Speaks appropriately for age. - Family history: Not pertinent. - : The pt / caregiver states he / she is on anticoagulants: Eliquis The pt / caregiver states he / she is on anticoagulants: Home medication list is obtained from the patient, pill bottles. - Exposure Risk Screening:: None identified. Vital Signs: 03/05 04:58 BP 194 / 77; Pulse 78; Resp 18; Temp 97.5; Pulse Ox 96% on R/A; Weight 82.1 kg / 181 nn1 lbs; Height 5 ft. 5 in. (165.10 cm); Pain 0/10; 05:10 BP 213 / 94 (auto/); ja5 05:11 BP 203 / 81 (auto/); kas2 05:11 Pulse 76 MON; Pulse Ox 99% ; kas2 05:12 Pulse 62 MON; Pulse Ox 99% ; ja5 05:26 BP 182 / 83 (auto/); kas2 05:26 Pulse 62 MON; Pulse Ox 99% ; kas2 05:38 BP 191 / 79 (auto/); kas2 05:39 Pulse 64 MON; Pulse Ox 99% ; kas2 05:40 BP 212 / 84 (auto/); kas2 05:40 Pulse 70 MON; Pulse Ox 99% ; kas2 05:41 BP 194 / 83 (auto/); kas2 05:41 Pulse 62 MON; Pulse Ox 99% ; kas2 05:45 BP 191 / 79 RA Supine; Pulse 77; kas2 05:45 BP 212 / 84 RA Sitting; Pulse 65; kas2 05:46 BP 194 / 83 RA Standing; Pulse 62; kas2 06:23 BP 198 / 79 (auto/); kas2 06:24 Pulse 72 MON; Pulse Ox 97% ; kas2 06:24 Resp 20; Temp 98.0(O); Pain 0/10; kas2 06:29 BP 205 / 78 (auto/); kas2 06:29 Pulse 76 MON; kas2 06:34 BP 191 / 88 (auto/); kas2 06:34 Pulse 62 MON; Pulse Ox 98% ; kas2 06:45 BP 180 / 79 (auto/); kas2 06:46 Pulse 68 MON; Pulse Ox 97% ; kas2 07:38 BP 184 / 81; Pulse 65; Resp 20; Temp 97.2(O); Pulse Ox 98% on R/A; Pain 0/10; jc4 07:38 BP 184 / 81 (auto/); ja5 07:38 Pulse 62 MON; ja5 09:06 BP 170 / 76 RA Supine (man/); ja5 11:59 BP 151 / 68 (auto/); jc4 11:59 Pulse 66 MON; jc4 04:58 Body Mass Index 30.12 (82.10 kg, 165.10 cm) nn1 MDM: 05:12 ECG WITH READING ER PHYS+CARDIAG ordered. EDMS 05:28 Computer Compositor/Pulse Ox/q 30 min VS ordered. br1 05:28 IV Saline Lock ordered. br1 05:28 Rhythm Strip to chart ordered. br1 05:28 Undress patient appropriately for examination ordered. br1 05:28 Orthostatic VS ordered. br1 05:28 Meclizine 25 mg PO once ordered. br1 05:29 Basic Metabolic Profile Ordered. EDMS 05:29 CBC with Diff Ordered. EDMS 05:29 Cardiac Injury Profile Ordered. EDMS 05:29 Troponin Ordered. EDMS 05:30 Chest, 2 View (pa\E\lat) Ordered. EDMS 05:30 CT Head Without Contrast Ordered. EDMS 05:39 Financial registration complete. pm4 05:40 [facility] Payment Agreement was scanned into [employer] and attached to record. pm4 06:20 Basic Metabolic Profile Reviewed. br1 06:20 CBC with Diff Reviewed. br1 06:20 Cardiac Injury Profile Reviewed. br1 06:20 Troponin Reviewed. br1 06:22 carvedilol 12.5 mg PO once ordered. br1 06:26 Labetalol 10 mg IVP at bolus once over 2 mins ordered. br1 06:58 BED REQUEST+ADM ordered. EDMS 09:38 PHYSICAL THERAPY EVAL & TREAT ordered. EDMS 09:38 Admission / Observation Status ordered. EDMS 09:38 CONSISTENT CARBOHYDRATES ordered. EDMS 09:40 GASTROINTESTINAL (GI) PANEL Ordered. EDMS 09:41 STOOL POLYS Ordered. EDMS 09:41 GASTROINTESTINAL (GI) PANEL Ordered. EDMS 09:45 CT Head without contrast Ordered. EDMS 10:27 THYROID PROFILE Ordered. EDMS 12:16 Fingerstick Blood Sugar Ordered. EDMS 12:18 Attending Doctor Change: ordered. EDMS 13:29 T-Sheet-- Draft Copy was scanned into [employer] and attached to record. gb 17:26 Fingerstick Blood Sugar Ordered. EDMS 03/06 10:49 ECG/EKG was scanned into [employer] and attached to record. gb 10:49 Trend VS was scanned into [employer] and attached to record. gb Administered Medications: 03/05 05:45 Drug: Meclizine 25 mg [meclizine 12.5 mg tablet (2 tabs)] Route: PO; kas2 06:32 Drug: carvedilol 12.5 mg [carvedilol 6.25 mg tablet (2 tabs)] Route: PO; kas2 06:47 Drug: Labetalol 10 mg [labetalol 5 mg/mL intravenous solution (2 mL)] Route: IVP; Rate: kas2 bolus; Infused Over: 2 mins; Site: left antecubital; Signatures: Dispatcher [employer] EDMS Renae Lemus RN RN kpj Barnhardt, Gloria, Reg Reg gb Adam Brunson MD MD br1 Brianne Raymundo RN RN jc4 Rubi Reyes RN RN nn1 Marilin Lewis RN RN kc3 Tiago Escobar, Reg Reg pm4 Iris Silver RN [facility]2 The chart was reviewed and I authenticate all verbal orders and agree with the evaluation and treatment provided.Corrections: (The following items were deleted from the chart) 07:37 04:55 Home Meds: levothyroxine 100 mcg oral cap 1 cap once daily; [facility] 07:37 04:55 Home Meds: simvastatin 40 mg oral tab 1 tab once daily; nn jc4 07:37 04:55 Home Meds: carvedilol 12.5 mg oral tab 1 tab 2 times per day; nn jc4 07:37 04:55 Home Meds: metformin 850 mg Oral tab 1 tab 2 times per day; nn1 jc4 07:37 04:55 Home Meds: omeprazole 40 mg oral cpDR 1 cap once daily; nn jc4 07:37 04:55 Home Meds: mag64 DR - 64mg 2x per day; nn1 jc4 07:37 04:55 Home Meds: Eliquis 5 mg oral tab 1 tab 2 times per day; nn jc4 07:37 04:55 Home Meds: allopurinol 100 mg oral tab 1 tab once daily; nn jc4 10:27 09:46 THYROID PROFILE ordered. EDMS EDMS 15:58 09:40 OSMOLARITY STOOL ordered. EDMS EDMS 15:58 09:40 STOOL SODIUM ordered. EDMS EDMS 15:58 09:40 STOOL POTASSIUM ordered. EDMS EDMS 15:58 09:40 STOOL CHLORIDE ordered. EDMS EDMS Attachments: 05:40 [facility] Payment Agreement pm4 13:29 T-Sheet-- Draft Copy gb 03/06 10:49 ECG/EKG gb Chart Complete MTDD
--- NOTE | 2016-03-07 18:49 | EDDOCDS ---
Nurse's Notes [facility] Name: Suzanne Naranjo Age: 70 yrs Sex: Female : 1945 Arrival Date: 03/05/2016 Time: 04:43 Bed 19 Private MD: Diagnosis: Essential (primary) hypertension-Hypertensive Urgency Presentation: 03/05 04:50 Presenting complaint: Patient states: dizziness and nausea since after dinner last nn1 night. Reports gait is unsteady since tonight as well. No vomiting at this time. Suicide/Homicide risk assessment- the patient denies having any suicidal and/or homicidal ideations and does not present with any other emotional, behavioral or mental health complaints. Status: Patient is not a sales and service engineer or dependent. Transition of care: patient was not received from another setting of care. 04:50 Acuity: HEATHER Level 3 nn1 04:50 Method Of Arrival: Walkin/Carried/Asstd nn1 07:56 Adult Sepsis Screening: The patient does not have new or worsening altered mentation. jc4 Patient's respiratory rate is less than 22. Systolic blood pressure is greater than 100. Patient has a qSOFA score of 0- Negative Sepsis Screen. Triage Assessment: 04:56 General: Appears in no apparent distress, Patient reports Dr. Pinzon (Dr. Davis' office) nn1 continues to change her meds. Reports having blood work taken last week that showed low potassium levels. Patient has appointment for recheck on Thursday. . Pain: Denies pain. The patient is triaged at the bedside. See Assessment in Nurses Notes section of ED record. GI: Reports diarrhea, nausea, Patient reports abdominal discomfort due to dry heaving. Reports dizziness. Derm: Skin is pink, warm & dry. Historical: - Allergies: Cipro PO; Codeine Sulfate; SULFA (SULFONAMIDES); - Home Meds: 1. levothyroxine 100 mcg Oral cap 1 cap once daily (Last dose: 03/04/2016 08:00) 2. simvastatin 40 mg Oral tab 1 tab nightly (Last dose: 03/04/2016 22:00) 3. carvedilol 12.5 mg oral tab 1 tab 2 times per day (Last dose: 03/04/2016 22:00) 4. metformin 850 mg Oral tab 1 tab 2 times per day (Last dose: 03/04/2016 22:00) 5. omeprazole 40 mg Oral cpDR 1 cap once daily (Last dose: 03/04/2016 13:00) 6. mag64 DR - 64mg 2x per day (Last dose: 03/04/2016 22:00) 7. Eliquis 5 mg oral tab 1 tab 2 times per day (Last dose: 03/04/2016 22:00) 8. allopurinol 100 mg Oral tab 1 tab nightly (Last dose: 03/04/2016 22:00) - PMHx: Diabetes - NIDDM: controlled; GERD; Gout; Hypercholesterolemia; Hypertension; Hypothyroidism; Stroke; - PSHx: Pacemaker Insertion; - Social history: Smoking status: Patient states was never smoker of tobacco. No barriers to communication noted, The patient speaks fluent [place], Speaks appropriately for age. - Family history: Not pertinent. - : The pt / caregiver states he / she is on anticoagulants: Eliquis The pt / caregiver states he / she is on anticoagulants: Home medication list is obtained from the patient, pill bottles. - Exposure Risk Screening:: None identified. Screenin:02 Screening information is obtained from the patient. Fall risk: At risk due to gait nn1 disturbance. Assistance ADL's: requires no assistance with activities of daily living. Abuse/DV Screen: The patient / caregiver reports he/she is: not in a situation that causes fear, pain or injury. Nutritional screening: Diabetic diet. Advance Directives: Currently, there is a health care proxy, Mely Naranjo, daughter . home support is adequate. Assessment: 05:21 General: Appears in no apparent distress, comfortable, well nourished, well groomed, kas2 Behavior is appropriate for age, cooperative. Pain: Denies pain. Neurological: Level of Consciousness is awake, alert, Oriented to person, place, time, Briar Cutter are equal bilaterally Moves all extremities. Speech is normal, Facial symmetry appears normal, Pupils are PERRLA. Respiratory: Airway is patent Respiratory effort is even, unlabored, Respiratory pattern is regular, symmetrical, Breath sounds are clear bilaterally. Derm: Skin is intact, Skin is dry, Skin is pale, Skin temperature is warm. Injury Description: No known injury. 05:21 Cardiovascular: Capillary refill < 3 seconds Heart tones S1 S2 present Rhythm is sinus kas2 rhythm No ectopy. 05:30 General: Patient gone to CT via stretcher with tech.. kas2 05:40 General: Patient back from CT scan via stretcher with tech. Resettled in bed. . kas2 06:21 General: Appears in no apparent distress, comfortable, Behavior is appropriate for age, kas2 cooperative. Pain: Denies pain. Neurological: Level of Consciousness is awake, alert, Oriented to person, place, time. Cardiovascular: Rhythm is sinus rhythm No ectopy. Respiratory: Airway is patent Respiratory effort is even, unlabored, Respiratory pattern is regular, symmetrical. Derm: Skin is intact, Skin is dry, Skin is pink, warm & dry. Skin temperature is warm. 07:55 General: Appears in no apparent distress, comfortable, Behavior is cooperative, jc4 pleasant. Pain: Denies pain. Neurological: Level of Consciousness is awake, alert, Oriented to person, place, time, Briar Cutter are equal bilaterally Moves all extremities. Speech is normal, Facial symmetry appears normal, Pupils are PERRLA. Cardiovascular: Rhythm is paced rhythm Chest pain is denied. Cardiovascular: Edema is absent. Respiratory: Airway is patent Respiratory effort is even, unlabored, Respiratory pattern is regular, symmetrical, Breath sounds are clear bilaterally. GI: Abdomen is non- distended Bowel sounds present X 4 quads. Derm: Skin is pink, warm & dry. 07:56 General: Dr. Ignacio in to examine patient. jc4 08:56 General: Patient resting in stretcher watching television, denies dizziness at this ja5 time, no needs at this time, call hendrickson in reach.. 09:50 General: Breakfast tray given. jc4 10:07 General: Patient is eating breakfast, no complaints of dizziness at this time. Call ja5 hendrickson in reach, no needs at this time.. 10:31 General: Patient ambulated to the bedside commode, steady gait, denies dizziness at ja5 this time.. 11:18 General: Patient is currently asleep in stretcher, side rails up, call hendrickson in reach.. ja5 12:40 General: Food tray delivered, patient set up in stretcher, no complaints at this time.. ja5 Vital Signs: 04:58 BP 194 / 77; Pulse 78; Resp 18; Temp 97.5; Pulse Ox 96% on R/A; Weight 82.1 kg; Height nn1 5 ft. 5 in. (165.10 cm); Pain 0/10; 05:10 BP 213 / 94 (auto/); ja5 05:11 BP 203 / 81 (auto/); kas2 05:11 Pulse 76 MON; Pulse Ox 99% ; kas2 05:12 Pulse 62 MON; Pulse Ox 99% ; ja5 05:26 BP 182 / 83 (auto/); kas2 05:26 Pulse 62 MON; Pulse Ox 99% ; kas2 05:38 BP 191 / 79 (auto/); kas2 05:39 Pulse 64 MON; Pulse Ox 99% ; kas2 05:40 BP 212 / 84 (auto/); kas2 05:40 Pulse 70 MON; Pulse Ox 99% ; kas2 05:41 BP 194 / 83 (auto/); kas2 05:41 Pulse 62 MON; Pulse Ox 99% ; kas2 05:45 BP 191 / 79 RA Supine; Pulse 77; kas2 05:45 BP 212 / 84 RA Sitting; Pulse 65; kas2 05:46 BP 194 / 83 RA Standing; Pulse 62; kas2 06:23 BP 198 / 79 (auto/); kas2 06:24 Pulse 72 MON; Pulse Ox 97% ; kas2 06:24 Resp 20; Temp 98.0(O); Pain 0/10; kas2 06:29 BP 205 / 78 (auto/); kas2 06:29 Pulse 76 MON; kas2 06:34 BP 191 / 88 (auto/); kas2 06:34 Pulse 62 MON; Pulse Ox 98% ; kas2 06:45 BP 180 / 79 (auto/); kas2 06:46 Pulse 68 MON; Pulse Ox 97% ; kas2 07:38 BP 184 / 81; Pulse 65; Resp 20; Temp 97.2(O); Pulse Ox 98% on R/A; Pain 0/10; jc4 07:38 BP 184 / 81 (auto/); ja5 07:38 Pulse 62 MON; ja5 09:06 BP 170 / 76 RA Supine (man/); ja5 11:59 BP 151 / 68 (auto/); jc4 11:59 Pulse 66 MON; jc4 04:58 Body Mass Index 30.12 (82.10 kg, 165.10 cm) nn1 Vitals: 04:58 Log In Time: March 05, 2016 at 04:47. nn1 ED Course: 04:46 Patient visited by Alicia Wen, Reg. hs2 04:46 Patient moved to Waiting hs2 04:51 Triage Initiated nn1 05:03 Iris Silver RN is Primary Nurse. nn1 05:03 Patient moved to 12 nn1 05:10 Patient name changed from Suzanne\S\Ellen\S\Dygert\S\ to Suzanne\S\Sid\S\Dygert. EDMS 05:15 Adam Brunson MD is Attending Physician. br1 05:22 Inserted saline lock: 20 gauge in left antecubital area and blood collected. The kas2 patient tolerated the procedure well. No procedures done that require assistance. 05:23 Patient visited by Iris Silver RN. kas2 05:23 monitor tech on. Pulse ox on. NIBP on. kas2 05:27 Patient visited by Adam Brunson MD. br1 05:31 Basic Metabolic Profile Sent. kas2 05:31 CBC with Diff Sent. kas2 05:31 Cardiac Injury Profile Sent. kas2 05:31 Troponin Sent. kas2 05:34 Patient visited by Iris Silver RN. kas2 05:40 [facility] Payment Agreement was scanned into [employer] and attached to record. pm4 05:47 Patient visited by Iris Silver RN. kas2 05:55 Patient visited by Chester Birmingham PCA. kb5 05:55 EKG done. (by ED staff). Reviewed by Adam Brunson MD. kb5 06:22 Patient visited by Iris Silver RN. kas2 06:32 CT Head Without Contrast Returned. EDMS 06:48 Patient visited by Iris Silver RN. kas2 07:01 Patient visited by Iris Silver RN. kas2 07:13 Arelis Sood is Hospitalizing Provider. br1 07:56 The patient / caregiver is instructed regarding the plan of care and ED course. jc4 07:57 Patient visited by Brianne Raymundo RN. jc4 08:23 Brianne Raymundo RN is Primary Nurse. jc4 08:43 Chest, 2 View (pa\E\lat) Returned. EDMS 08:57 Patient visited by Glenny Guajardo RN. ja5 09:56 Patient moved to Admit Hold [facility] 10:07 Patient visited by Glenny Guajardo RN. ja5 10:31 Patient visited by Glenny Guajardo RN. ja5 11:18 Patient visited by Glenny Guajardo RN. dennys5 12:38 Patient visited by Glenny Guajardo RN. dennys5 13:12 Primary Nurse role handed off by Brianne Raymundo, KATIE jc4 13:17 Patient moved to [facility] 13:29 T-Sheet-- Draft Copy was scanned into [employer] and attached to record. gb 17:21 Primary Nurse role handed off by Iris Silver RN [facility] 03/06 10:49 ECG/EKG was scanned into [employer] and attached to record. gb 10:49 Trend VS was scanned into [employer] and attached to record. gb Administered Medications: 03/05 05:45 Drug: Meclizine 25 mg [meclizine 12.5 mg tablet (2 tabs)] Route: PO; kas2 06:32 Drug: carvedilol 12.5 mg [carvedilol 6.25 mg tablet (2 tabs)] Route: PO; kas2 06:47 Drug: Labetalol 10 mg [labetalol 5 mg/mL intravenous solution (2 mL)] Route: IVP; Rate: kas2 bolus; Infused Over: 2 mins; Site: left antecubital; Attachments: 10:49 Trend VS gb Order Results: Lab Order: Basic Metabolic Profile; SPEC'M 03/05/16 05:20 Test: POTASSIUM SERUM; Value: 5.1; Range: 3.5-5.1; Units: MEQ/L; Status: F Test: CHLORIDE LEVEL; Value: 110; Range: 98-107; Abnormal: Above high normal; Units: MEQ/L; Status: F Test: CARBON DIOXIDE LEVEL; Value: 20; Range: 21-32; Abnormal: Below low normal; Units: MEQ/L; Status: F Test: ANION GAP; Value: 10; Range: 8-16; Units: MEQ/L; Status: F Test: CALCIUM LEVEL; Value: 9.3; Range: 8.8-10.2; Units: MG/DL; Status: F Test Note: ; Units are mL/min/1.73 m2 Chronic Kidney Disease Staging per NKF: Stage I & II GFR >=60 Normal to Mildly Decreased Stage III GFR 30-59 Moderately Decreased Stage IV GFR 15-29 Severely Decreased Stage V GFR <15 Very Little GFR Left ESRD GFR <15 on GATHERING MACHINE FEEDER Test: GLUCOSE, FASTING; Value: 157; Range: 83-110; Abnormal: Above high normal; Units: MG/DL; Status: F Test: BLOOD UREA NITROGEN; Value: 29; Range: 7-18; Abnormal: Above high normal; Units: MG/DL; Status: F Test: CREATININE FOR GFR; Value: 0.94; Range: 0.55-1.02; Units: MG/DL; Status: F Test: GLOMERULAR FILTRATION RATE; Value: > 60.0; Range: >39; Status: F Test: SODIUM LEVEL; Value: 140; Range: 136-145; Units: MEQ/L; Status: F Test: T UPTAKE; Range: 30-39; Units: %; Status: I Test: THYROXINE (T4); Range: 4.5-12.0; Units: UG/DL; Status: I Test: FREE THYROXINE INDEX; Range: 1.3-4.8; Units: %; Status: I Test: THYROID STIMULATING HORMONE; Range: 0.358-3.740; Units: uIU/ML; Status: I Lab Order: CBC with Diff; SPEC'M 03/05/16 05:20 Test: WHITE BLOOD COUNT; Value: 9.3; Range: 4.0-10.0; Units: K/mm3; Status: F Test: RED BLOOD COUNT; Value: 4.36; Range: 4.00-5.40; Units: M/mm3; Status: F Test: HEMOGLOBIN; Value: 11.8; Range: 12.0-16.0; Abnormal: Below low normal; Units: g/dl; Status: F Test: HEMATOCRIT; Value: 37.5; Range: 36.0-47.0; Units: %; Status: F Test: MEAN CORPUSCULAR VOLUME; Value: 86.0; Range: 80.0-96.0; Units: fl; Status: F Test: MEAN CORPUSCULAR HEMOGLOBIN; Value: 27.0; Range: 27.0-33.0; Units: pg; Status: F Test: MEAN CORPUSCULAR HGB CONC; Value: 31.4; Range: 32.0-36.5; Abnormal: Below low normal; Units: g/dl; Status: F Test: RED CELL DISTRIBUTION WIDTH; Value: 17.7; Range: 11.5-14.5; Abnormal: Above high normal; Units: %; Status: F Test: PLATELET COUNT, AUTOMATED; Value: 228; Range: 150-450; Units: k/mm3; Status: F Test: NEUTROPHILS %; Value: 74.5; Range: 36.0-66.0; Abnormal: Above high normal; Units: %; Status: F Test: LYMPH %; Value: 16.2; Range: 24.0-44.0; Abnormal: Below low normal; Units: %; Status: F Test: MONO %; Value: 3.3; Range: 0.0-5.0; Units: %; Status: F Test: EOS %; Value: 3.4; Range: 0.0-3.0; Abnormal: Above high normal; Units: %; Status: F Test: BASO %; Value: 0.8; Range: 0.0-1.0; Units: %; Status: F Test: LARGE UNSTAINED CELL %; Value: 1.8; Range: 0.0-4.0; Units: %; Status: F Test: NEUTROPHILS #; Value: 6.9; Range: 1.8-7.7; Units: K/mm3; Status: F Test: LYMPH #; Value: 1.7; Range: 1.5-4.5; Units: K/mm3; Status: F Test: MONO #; Value: 0.3; Range: 0.0-0.8; Units: K/mm3; Status: F Test: EOS #; Value: 0.3; Range: 0.0-0.50; Units: K/mm3; Status: F Test: BASO #; Value: 0.1; Range: 0.0-0.2; Units: K/mm3; Status: F Test: LARGE UNSTAINED CELL #; Value: 0.2; Range: 0.0-0.4; Units: K/mm3; Status: F Lab Order: Cardiac Injury Profile; SPEC'M 03/05/16 05:20 Test: CPK CREATINE PHOSPHOKINASE; Value: 31; Range: 26-192; Units: U/L; Status: F Test: CK-MB VALUE MASS; Value: 1.1; Range: 0.0-3.6; Units: NG/ML; Status: F Test: MB/CK RELATIVE INDEX; Value: 3.54; Range: < OR =4; Status: F Test Note: ; DIAGNOSIS CRITERIA MMB ng/ml Relative Index (RI) NON-AMI < or = 5 N/A [place] > 5 < or = 4 AMI > 5 > 4 Lab Order: Troponin; [facility]03/05/16 05:20 Test: TROPONIN I; Value: < 0.02; Range: < 0.10; Units: NG/ML; Status: F Test Note: ; Troponin I Reference Interval for [email or web address] LOCI: 99th Percentile= 0.00-0.045 ng/ml Risk Stratification: <= 0.10 ng/ml Decreased Risk for Adverse Clinical Events. 0.10-1.50 ng/ml Increased Risk for Adverse Clinical Events. Evaluation of additional criterion and/or repeat testing in 2-6 hours is suggested to rule out myocardial damage. >= 1.50 ng/ml Indicative of Myocardial Injury. Lab Order: STOOL POLYS; 03/05/16 15:31 Test: STOOL LACTOFERRIN-polys by I[facility]; Value: LACTOFERRIN RESULTS POSITIVE; Abnormal: Abnormal; Status: F Lab Order: THYROID PROFILE; 03/05/16 05:20 Test: T UPTAKE; Value: 41; Range: 30-39; Abnormal: Above high normal; Units: %; Status: F Test: THYROXINE (T4); Value: 14.5; Range: 4.5-12.0; Abnormal: Above high normal; Units: UG/DL; Status: F Test: FREE THYROXINE INDEX; Value: 5.9; Range: 1.3-4.8; Abnormal: Above high normal; Units: %; Status: F Test: THYROID STIMULATING HORMONE; Value: 0.018; Range: 0.358-3.740; Abnormal: Below low normal; Units: uIU/ML; Status: F Lab Order: Fingerstick Blood Sugar; [facility]03/05/16 12:01 Test: BEDSIDE GLUCOSE; Value: 227; Range: 83-110; Abnormal: Above high normal; Units: MG/DL; Status: F Lab Order: Fingerstick Blood Sugar; [facility]03/05/16 17:14 Test: BEDSIDE GLUCOSE; Value: 102; Range: 83-110; Units: MG/DL; Status: F Radiology Order: Chest, 2 View (pa\E\lat) Test: Chest, 2 View (pa\E\lat) REASON FOR EXAMINATION: Shortness of Breath; PA and lateral chest:; ; Comparison is 11/25/2010.; ; Mild cardiomegaly and single lead pacemaker are again noted, unchanged.; ; There are no acute infiltrates or pleural effusions. There are no masses.; ; The stanislav, mediastinum, and bony thorax are unremarkable.; ; Impression:; ; No interval change. Chronic cardiomegaly and pacemaker are again noted.; ; No acute cardiopulmonary findings are identified.; ; ; Signed by; Stu Harris MD 03/05/2016 08:22 A; Radiology Order: CT Head Without Contrast Test: CT Head Without Contrast REASON FOR EXAMINATION: CVA >4.5hrs; ; CLINICAL HISTORY: Headache.; TECHNIQUE: Multiple axial CT images were obtained through the brain without IV contrast material.; COMMENTS:; Left frontal chronic encephalomalcia.; There is normal configuration of sella turcica. There are no intra or extra-axial collections. There; is no mass effect or midline shift. There is no evidence of hematoma formation. No hydrocephalus is p; resent. The ventricles are symmetrical. No abnormal calcifications are present.; There is diffuse age-appropriate cerebellar and cerebral atrophy with proportionally dilated ventricl; es and cortical sulci.; There are bilateral periventricular and subcortical white matter hypolucencies compatible with mild c; hronic microvascular disease.; Otherwise, no significant focal abnormalities are seen either in the posterior fossa or supratentoria; l compartment.; IMPRESSION:; 1. Age-appropriate cerebellar and cerebral atrophy. Left frontal chronic encephalomalcia.; 2. Mild chronic microvascular disease.; 3. No evidence of acute intracranial pathology. No change from 11/17/2010.; Thank you for your kind referral of this patient.; ; ; Outcome: 03/05 07:13 Decision to Hospitalize by Provider. br1 17:11 Discharge Assessment: Patient awake and alert. Oriented to person, place and time. aa3 Patient verbalized understanding of disposition instructions. Patient has no functional deficits. patient administered narcotics - no. The following High Risk Discharge criteria are identified: None. Admitted to PCU accompanied by nurse, accompanied by tech, via stretcher, on monitor, with chart. Condition: good. CT Study completed. Admission hand-off: Report called to Charley Louis RN. Property :Personal belongings accompany Pt. 17:47 Patient left the ED. kc3 Signatures: Dispatcher [employer] EDMS Renae Lemus RN Haylie Morgan RN KATIE mcp Sheryl Wood, Reg Reg gb Valencia, Chester, SELVAGE MACHINE OPERATOR SELVAGE MACHINE OPERATOR kb5 Adam Brunson MD MD br1 Brianne Raymundo RN RN jc4 Jacque KovacsRN Gracy Solis RN RN aa3 Rubi ReyesRN RN nn1 Marilin LewisRN RN kc3 Alicia Wen, Reg Reg hs2 Iris Silver RN RN kas2 Tiago Escobar, Reg Reg pm4 Glenny GuajardoRN RN ja5 Corrections: (The following items were deleted from the chart) 05:49 05:21 Cardiovascular: Capillary refill < 3 seconds Heart tones S1 S2 present Rhythm is kas2 sinus rhythm No ectopy. [facility]2 07:37 04:55 Home Meds: levothyroxine 100 mcg oral cap 1 cap once daily; [facility] : 04:55 Home Meds: simvastatin 40 mg oral tab 1 tab once daily; : 04:55 Home Meds: carvedilol 12.5 mg oral tab 1 tab 2 times per day; : 04:55 Home Meds: metformin 850 mg Oral tab 1 tab 2 times per day; : 04:55 Home Meds: omeprazole 40 mg oral cpDR 1 cap once daily; : 04:55 Home Meds: mag64 DR - 64mg 2x per day; [facility] : 04:55 Home Meds: Eliquis 5 mg oral tab 1 tab 2 times per day; [facility] 07: 04:55 Home Meds: allopurinol 100 mg oral tab 1 tab once daily; [facility] Chart Complete MTDD
--- NOTE | 2016-03-07 18:49 | EDDOCDS ---
Physician Documentation [facility] Name: Suzanne Naranjo Age: 70 yrs Sex: Female : 1945 Arrival Date: 03/05/2016 Time: 04:43 Bed 19 Private MD: Disposition: 03/05/16 07:13 Hospitalization ordered by Arelis Sood for Inpatient Admission. Preliminary diagnosis is Essential (primary) hypertension - Hypertensive Urgency. - Bed requested for PCU. - Status is Inpatient Admission. kc3 - Condition is Stable. - Problem is new. - Symptoms are unchanged. Historical: - Allergies: Cipro PO; Codeine Sulfate; SULFA (SULFONAMIDES); - Home Meds: 1. levothyroxine 100 mcg Oral cap 1 cap once daily (Last dose: 03/04/2016 08:00) 2. simvastatin 40 mg Oral tab 1 tab nightly (Last dose: 03/04/2016 22:00) 3. carvedilol 12.5 mg oral tab 1 tab 2 times per day (Last dose: 03/04/2016 22:00) 4. metformin 850 mg Oral tab 1 tab 2 times per day (Last dose: 03/04/2016 22:00) 5. omeprazole 40 mg Oral cpDR 1 cap once daily (Last dose: 03/04/2016 13:00) 6. mag64 DR - 64mg 2x per day (Last dose: 03/04/2016 22:00) 7. Eliquis 5 mg oral tab 1 tab 2 times per day (Last dose: 03/04/2016 22:00) 8. allopurinol 100 mg Oral tab 1 tab nightly (Last dose: 03/04/2016 22:00) - PMHx: Diabetes - NIDDM: controlled; GERD; Gout; Hypercholesterolemia; Hypertension; Hypothyroidism; Stroke; - PSHx: Pacemaker Insertion; - Social history: Smoking status: Patient states was never smoker of tobacco. No barriers to communication noted, The patient speaks fluent Israeli, Speaks appropriately for age. - Family history: Not pertinent. - : The pt / caregiver states he / she is on anticoagulants: Eliquis The pt / caregiver states he / she is on anticoagulants: Home medication list is obtained from the patient, pill bottles. - Exposure Risk Screening:: None identified. Vital Signs: 03/05 04:58 BP 194 / 77; Pulse 78; Resp 18; Temp 97.5; Pulse Ox 96% on R/A; Weight 82.1 kg / 181 nn1 lbs; Height 5 ft. 5 in. (165.10 cm); Pain 0/10; 05:10 BP 213 / 94 (auto/); ja5 05:11 BP 203 / 81 (auto/); kas2 05:11 Pulse 76 MON; Pulse Ox 99% ; kas2 05:12 Pulse 62 MON; Pulse Ox 99% ; ja5 05:26 BP 182 / 83 (auto/); kas2 05:26 Pulse 62 MON; Pulse Ox 99% ; kas2 05:38 BP 191 / 79 (auto/); kas2 05:39 Pulse 64 MON; Pulse Ox 99% ; kas2 05:40 BP 212 / 84 (auto/); kas2 05:40 Pulse 70 MON; Pulse Ox 99% ; kas2 05:41 BP 194 / 83 (auto/); kas2 05:41 Pulse 62 MON; Pulse Ox 99% ; kas2 05:45 BP 191 / 79 RA Supine; Pulse 77; kas2 05:45 BP 212 / 84 RA Sitting; Pulse 65; kas2 05:46 BP 194 / 83 RA Standing; Pulse 62; kas2 06:23 BP 198 / 79 (auto/); kas2 06:24 Pulse 72 MON; Pulse Ox 97% ; kas2 06:24 Resp 20; Temp 98.0(O); Pain 0/10; kas2 06:29 BP 205 / 78 (auto/); kas2 06:29 Pulse 76 MON; kas2 06:34 BP 191 / 88 (auto/); kas2 06:34 Pulse 62 MON; Pulse Ox 98% ; kas2 06:45 BP 180 / 79 (auto/); kas2 06:46 Pulse 68 MON; Pulse Ox 97% ; kas2 07:38 BP 184 / 81; Pulse 65; Resp 20; Temp 97.2(O); Pulse Ox 98% on R/A; Pain 0/10; jc4 07:38 BP 184 / 81 (auto/); ja5 07:38 Pulse 62 MON; ja5 09:06 BP 170 / 76 RA Supine (man/); ja5 11:59 BP 151 / 68 (auto/); jc4 11:59 Pulse 66 MON; jc4 04:58 Body Mass Index 30.12 (82.10 kg, 165.10 cm) nn1 MDM: 05:12 ECG WITH READING ER PHYS+CARDIAG ordered. EDMS 05:28 Benzene Operator/Pulse Ox/q 30 min VS ordered. br1 05:28 IV Saline Lock ordered. br1 05:28 Rhythm Strip to chart ordered. br1 05:28 Undress patient appropriately for examination ordered. br1 05:28 Orthostatic VS ordered. br1 05:28 Meclizine 25 mg PO once ordered. br1 05:29 Basic Metabolic Profile Ordered. EDMS 05:29 CBC with Diff Ordered. EDMS 05:29 Cardiac Injury Profile Ordered. EDMS 05:29 Troponin Ordered. EDMS 05:30 Chest, 2 View (pa\E\lat) Ordered. EDMS 05:30 CT Head Without Contrast Ordered. EDMS 05:39 Financial registration complete. pm4 05:40 [facility] Payment Agreement was scanned into [employer] and attached to record. pm4 06:20 Basic Metabolic Profile Reviewed. br1 06:20 CBC with Diff Reviewed. br1 06:20 Cardiac Injury Profile Reviewed. br1 06:20 Troponin Reviewed. br1 06:22 carvedilol 12.5 mg PO once ordered. br1 06:26 Labetalol 10 mg IVP at bolus once over 2 mins ordered. br1 06:58 BED REQUEST+ADM ordered. EDMS 09:38 PHYSICAL THERAPY EVAL & TREAT ordered. EDMS 09:38 Admission / Observation Status ordered. EDMS 09:38 CONSISTENT CARBOHYDRATES ordered. EDMS 09:40 GASTROINTESTINAL (GI) PANEL Ordered. EDMS 09:41 STOOL POLYS Ordered. EDMS 09:41 GASTROINTESTINAL (GI) PANEL Ordered. EDMS 09:45 CT Head without contrast Ordered. EDMS 10:27 THYROID PROFILE Ordered. EDMS 12:16 Fingerstick Blood Sugar Ordered. EDMS 12:18 Attending Doctor Change: ordered. EDMS 13:29 T-Sheet-- Draft Copy was scanned into [employer] and attached to record. gb 17:26 Fingerstick Blood Sugar Ordered. EDMS 03/06 10:49 ECG/EKG was scanned into [employer] and attached to record. gb 10:49 Trend VS was scanned into [employer] and attached to record. gb Administered Medications: 03/05 05:45 Drug: Meclizine 25 mg [meclizine 12.5 mg tablet (2 tabs)] Route: PO; kas2 06:32 Drug: carvedilol 12.5 mg [carvedilol 6.25 mg tablet (2 tabs)] Route: PO; kas2 06:47 Drug: Labetalol 10 mg [labetalol 5 mg/mL intravenous solution (2 mL)] Route: IVP; Rate: kas2 bolus; Infused Over: 2 mins; Site: left antecubital; Signatures: Dispatcher [employer] EDMS Renae Lemus RN RN kpj Barnhardt, Gloria, Reg Reg gb Adam Brunson MD MD br1 Brianne Raymundo RN RN jc4 Rubi Reyes RN RN nn1 Marilin Lewis RN RN kc3 Tiago Escobar, Reg Reg pm4 Iris Silver RN [facility]2 The chart was reviewed and I authenticate all verbal orders and agree with the evaluation and treatment provided.Corrections: (The following items were deleted from the chart) 07:37 04:55 Home Meds: levothyroxine 100 mcg oral cap 1 cap once daily; [facility]4 07:37 04:55 Home Meds: simvastatin 40 mg oral tab 1 tab once daily; nn jc4 07:37 04:55 Home Meds: carvedilol 12.5 mg oral tab 1 tab 2 times per day; nn jc4 07:37 04:55 Home Meds: metformin 850 mg Oral tab 1 tab 2 times per day; nn1 jc4 07:37 04:55 Home Meds: omeprazole 40 mg oral cpDR 1 cap once daily; nn jc4 07:37 04:55 Home Meds: mag64 DR - 64mg 2x per day; nn1 jc4 07:37 04:55 Home Meds: Eliquis 5 mg oral tab 1 tab 2 times per day; nn jc4 07:37 04:55 Home Meds: allopurinol 100 mg oral tab 1 tab once daily; nn jc4 10:27 09:46 THYROID PROFILE ordered. EDMS EDMS 15:58 09:40 OSMOLARITY STOOL ordered. EDMS EDMS 15:58 09:40 STOOL SODIUM ordered. EDMS EDMS 15:58 09:40 STOOL POTASSIUM ordered. EDMS EDMS 15:58 09:40 STOOL CHLORIDE ordered. EDMS EDMS Attachments: 05:40 [facility] Payment Agreement pm4 13:29 T-Sheet-- Draft Copy gb 03/06 10:49 ECG/EKG gb Chart Complete MTDD
== END 2016-03-07 16:23 | disposition home or self-care (01) | DRG 305 ==
LOC: M ED 04:43 → M ED INP 09:34 → M PCU 17:56
PROVIDERS: ADMIT Hospitalist; ATTEND General Practice
DX: I16.0 Hypertensive urgency (principal); I69.351 Hemiplegia and hemiparesis following cerebral infarction affecting right dominant side; E11.9 Type 2 diabetes mellitus without complications; R42 Dizziness and giddiness; K21.9 Gastro-esophageal reflux disease without esophagitis; E78.5 Hyperlipidemia, unspecified; I10 Essential (primary) hypertension; R11.0 Nausea; R19.7 Diarrhea, unspecified; M10.9 Gout, unspecified; I48.2 Chronic atrial fibrillation; Z79.01 Long term (current) use of anticoagulants; Z79.899 Other long term (current) drug therapy; Z88.2 Allergy status to sulfonamides; Z79.84 Long term (current) use of oral hypoglycemic drugs; Z88.1 Allergy status to other antibiotic agents

== ENCOUNTER → 2016-11-11 | Outpatient (CLI) | payer MEDICARE ==
[~2016-11-11] MED LIST changes: +ACIDCHW PO; +ALLO100T PO; +ALPR1TAB3 PO; +CARV12.5 PO; +CO Q100C10 PO; +ELIQ5TAB PO; +HYDR25TAB PO; +LEVO100T5 PO; +LEVO50TA5 PO; +LISI-542 PO; +LISI10TA4 PO; +MAGN64TASA PO; +METF850T4 PO; +OMEP40CA2 PO; +SIMV40TA2 PO; +SPIR25TA2 PO; +VITA-122 PO; +VITA100067 PO; +ZOLP10TA2 PO
--- NOTE | 2016-11-11 12:35 | REP ---
CT of the abdomen and pelvis without IV or bowel contrast: Comparison 03/09/2011. The visualized lower lung altman demonstrate chronic parenchymal scar in the left lower lobe, unchanged, but are otherwise unremarkable. The unenhanced hepatic parenchyma is homogeneous and unremarkable. The gallbladder, pancreas and spleen are normal size and unremarkable. The adrenals are unremarkable. The right kidney is rotated analyze and a more AP plane. The left kidney lies more in craniocaudad plane. This is unchanged. The kidneys are otherwise unremarkable. There is no hydronephrosis. The abdominal aorta is unremarkable except for calcified atheroma. There is no retroperitoneal adenopathy or mass. There is no bowel distension. There is no ascites. There is no mesenteric adenopathy. Pelvis: The appendix has a normal appearance. The uterus and adnexa are unremarkable. There is no ascites or adenopathy. There is descending colon and sigmoid colon diverticulosis without CT evidence of diverticulitis. The uterus, adnexa and bladder are unremarkable. There is a small fat-containing umbilical hernia measuring approximate 2.5 cm in diameter. Impression: Essentially negative CT study of the abdomen pelvis. No masses are identified. The right kidney is rotated into an AP plane as an anatomic variant. This is unchanged from the prior study. There is a small 2.5 cm fat containing umbilical hernia, not present previously. There is diverticulosis without diverticulitis. Signed by Stu Harris MD 11/11/2016 12:26 P
--- NOTE | 2016-11-11 13:35 | REP ---
Chest x-ray: Two views. History: Right lower quadrant mass. Comparison chest x-ray March 05, 2016. Findings: A unipolar pacemaker is again seen in the right heart via the left side. Heart is mildly enlarged unchanged. Cardiothoracic ratio measures 16.5 cm over 28.1 cm. Pulmonary vasculature is not increased. The aorta is calcific. Pleural angles are sharp. There are degenerative changes in the thoracic spine. Impression: Cardiomegaly with pacemaker. Otherwise no acute disease. Signed by Angelo White MD 11/11/2016 03:32 P
== END ==
LOC: M RAD 11:21
PROVIDERS: ATTEND Family Medicine
DX: I51.7 Cardiomegaly (principal); K42.9 Umbilical hernia without obstruction or gangrene; K57.90 Diverticulosis of intestine, part unspecified, without perforation or abscess without bleeding; Z95.0 Presence of cardiac pacemaker

== ENCOUNTER → 2018-05-06 | Outpatient (CLI) | payer MEDICARE ==
[~2018-05-06] MED LIST changes: +SPIR-10 PO; -SPIR25TA2 PO
--- NOTE | 2018-05-06 15:56 | REP ---
Clinical: COPD . Comparison: 11/11/2016 . Technique: PA and lateral. Findings: The mediastinum and cardiac silhouette are normal. The lung altman are clear and without acute consolidation, effusion, or pneumothorax. The skeletal structures are intact and normal. Impression: 1. No acute cardiopulmonary process. Electronically Signed by Salinas Garcia MD 05/06/2018 03:46 P
== END ==
LOC: M LAB 15:12
PROVIDERS: ATTEND Family Medicine
DX: R04.2 Hemoptysis (principal)

== ENCOUNTER → 2018-09-27 | Outpatient (CLI) | payer MEDICARE ==
[~2018-09-27] MED LIST changes: -/WARF5TA OR; +COUM1TAB17 OR
--- NOTE | 2018-09-27 14:17 | REPMRS ---
Patient History The patient states she has not had a clinical breast exam in over a year. Patient is postmenopausal. No known family history of cancer. No Hormone Replacement Therapy Digital Woman Screen Mammo: September 27, 2018 - Exam #: [id number] Bilateral CC and MLO view(s) were taken. Technologist: Cornelia Rose, Technologist Prior study comparison: May 09, 2015, digital woman screen mammo performed at [facility]. November 23, 2013, digital woman screen mammo performed at [facility]. April 30, 2010, bilateral bilat screen digital mammo performed at [facility]. FINDINGS: There are scattered fibroglandular densities. There is a pacemaker power plant projecting over the left axilla on the MLO view. There has been no change in the appearance of the mammogram from the prior studies. There is a mild amount of scattered fibroglandular density which is fairly symmetric. There is no interval development of dominant mass, architectural distortion, or grouped microcalcification suggestive of malignancy. 3-D tomosynthesis shows no additional findings. Assessment: BI-RADS/ACR category 2 mammogram. Benign Findings. Recommendation Routine screening mammogram of both breasts in 1 year (for women over age 40). This patient's Lifetime Breast Cancer Risk is estimated at 4.1 %. This mammogram was interpreted with the aid of an FDA-approved computer-aided dectection system. Electronically Signed By: Anjum White MD 09/27/18 [id number]
== END ==
LOC: M WHC 12:30
PROVIDERS: ATTEND Family Medicine
DX: Z12.31 Encounter for screening mammogram for malignant neoplasm of breast (principal); Z78.0 Asymptomatic menopausal state

== ENCOUNTER → 2019-02-18 | Outpatient (CLI) | payer MEDICARE ==
[~2019-02-18] MED LIST changes: +FURO20TA2 PO; +MAGN400C2 PO; -OMEP40CA2 PO; +OMEP40CA97 PO; -SIMV40TA2 PO; +SIMV40TA20 PO; +SYNT100T PO
[2019-02-18 16:41] LABS: CALCIUM LEVEL 9.4 MG/DL (8.8-10.2); CREATININE FOR GFR 1.14 MG/DL (0.55-1.30); GLOMERULAR FILTRATION RATE 49.7 (>39); POTASSIUM SERUM 4.5 MEQ/L (3.5-5.1)
== END ==
LOC: M WUC 13:12
PROVIDERS: ATTEND Physician Assistant
DX: I50.32 Chronic diastolic (congestive) heart failure (principal)

== ENCOUNTER → 2019-02-18 | Outpatient (CLI) | payer MEDICARE ==
--- NOTE | 2019-02-18 18:29 | REP ---
Chest x-ray: Two views. History: COPD. Comparison chest x-ray: May 06, 2018. Findings: There is moderate cardiomegaly, increased in size from the prior study. Cardiothoracic ratio today measures 59.4%. A unipolar pacemaker is seen in place. Pulmonary vascular cephalization is seen. There is no evidence of pleural effusion. However, there is a mass-like opacity in the right middle lobe today which was not previously observed. Chest CT study is recommended preferably with contrast if not contraindicated. Remaining lung altman are clear. Impression: Cardiomegaly, moderate in degree and more prominent than on the prior study. Vascular cephalization. Large mass-like opacity in the right middle lobe. Recommend chest CT. Electronically Signed by Angelo White MD 02/19/2019 05:36 A
== END ==
LOC: M WUC 13:17
PROVIDERS: ATTEND Family Medicine
DX: J44.9 Chronic obstructive pulmonary disease, unspecified (principal); J18.9 Pneumonia, unspecified organism

== ENCOUNTER → 2019-03-21 | Outpatient (CLI) | payer MEDICARE ==
--- NOTE | 2019-03-21 14:28 | REP ---
Clinical: Bronchitis. Technique: PA and lateral. Comparison: 02/18/2019 Findings: Stable cardiomegaly. Opacity in the right lower lobe is again noted. Increased coarsened markings may reflect bronchitis. No effusion. No pneumothorax. Skeletal structures intact. Impression: 1. Bronchitis cannot be excluded. 2. Large opacity in the right lower lobe again noted and warrants chest CT follow-up. Electronically Signed by Salinas Garcia MD 03/21/2019 02:20 P
== END ==
LOC: M WUC 13:41
PROVIDERS: ATTEND Family Medicine
DX: J20.9 Acute bronchitis, unspecified (principal)

== ENCOUNTER → 2019-04-06 | Outpatient (CLI) | payer MEDICARE ==
--- NOTE | 2019-04-06 17:40 | REP ---
CT of the chest without IV contrast for evaluation of a mass like density identified inferiorly in the right lung on recent plain film studies. There is a soft tissue mass-like density in the medial segment right middle lobe, similar appearance to plain film studies of 02/18/2019 and 03/21/2019. The lack of interval resolution is bothersome of for neoplasm. Depending on clinical factors, I would recommend a PET scan for further evaluation. There are no other nodules or masses. There are no infiltrates or pleural effusions. There is a pacemaker entering from the left. There is no mediastinal or axillary lymph node enlargement. The study is insensitive for hilar lymph node enlargement in the absence of IV contrast. The unenhanced thoracic aorta is unremarkable. The cardiac size is enlarged. There is no pericardial effusion. Upper abdomen: There is a sharply circumscribed round 15 ml lucency in the dome of the liver, likely a cyst. The unenhanced hepatic parenchyma is otherwise homogeneous. The gallbladder, pancreas and spleen are unremarkable. There is no adrenal mass. The renal upper poles demonstrate renal cortical scarring bilaterally and probable cyst at the mid pole of the left kidney. Impression: The lack of resolution of the right middle lobe density over the series of plain films and CT scan today is a suspicious and consideration might be given to PET scan for further evaluation. If CT scan is not obtained pulmonary consultation might be considered. Cardiomegaly and pacemaker. Electronically Signed by Stu Harris MD 04/06/2019 05:31 P
== END ==
LOC: M RAD 13:58
PROVIDERS: ATTEND Family Medicine
DX: R91.8 Other nonspecific abnormal finding of lung field (principal)

== ENCOUNTER → 2019-04-26 | Outpatient (REF) | payer MEDICARE ==
[2019-04-26 18:10] LABS: PLATELET COUNT, AUTOMATED 249 10^3/uL (150-450)
[2019-04-26 18:17] LABS: INR 1.84
[2019-04-26 18:18] LABS: PARTIAL THROMBOPLASTIN TIME 38.8 SECONDS (25.0-38.4)
== END ==
LOC: M LAB REF 17:06
PROVIDERS: ATTEND Internal Medicine Pulmonary Disease
DX: R91.8 Other nonspecific abnormal finding of lung field (principal); Z79.01 Long term (current) use of anticoagulants

== ENCOUNTER → 2019-05-17 | Outpatient (CLI) | payer MEDICARE ==
[~2019-05-17] MED LIST changes: +LIDOCAINE 1% MDV 20ML VIAL As Ordered ONE
[2019-05-17 12:00] VITALS: BP 134/58
--- NOTE | 2019-05-17 13:04 | REP ---
SINGLE VIEW CHEST: Single expiratory view of the chest is performed and compared exam the same day. Patient had CT guided biopsy of a right lung mass today. There is a small right apical pneumothorax which has remained stable. Remainder of this study is unchanged IMPRESSION: No change in very small right apical pneumothorax. Electronically Signed by Stu Ng MD 05/17/2019 03:12 P
--- NOTE | 2019-05-17 13:08 | REP ---
POSTBIOPSY CHEST: Single view of the chest is performed status post right lung biopsy. There is a small right apical pneumothorax. Air gap is 9 mm. Right inferior mass is again noted. Heart is mildly enlarged. Left pacemaker is again noted. IMPRESSION: Small right apical pneumothorax status post right lung biopsy. Followup radiograph will be performed. Electronically Signed by Stu Ng MD 05/17/2019 03:13 P
--- NOTE | 2019-05-18 09:43 | REP ---
CT-guided right lower lobe lung biopsy The procedure is performed by ASAD Burgos, under the direct supervision of Dr. Ng. The patient has a history of a soft tissue mass-like density in the medial segment of the right middle lobe on a CT dated 04/06/2019. The risks and benefits of the procedure were explained to the patient and informed consent was obtained both orally and written. Directly prior to the start of the procedure, a formal timeout was done in the exam room. The right lower lobe lung mass was localized using CT guidance. Skin was prepped and draped in the usual sterile fashion. 3 ml of 1% lidocaine 10 mg/ml was used as a local anesthetic. Using CT guidance a 19/20 gauge coaxial needle biopsy system was inserted and advanced into the nodule. 4 core biopsy samples were obtained and sent to the lab. CT images obtained directly after the biopsy show evidence of a small pneumothorax. This was then followed by a series of chest radiographs. After the appropriate amount of monitored convalescence the small pneumothorax had not progressed and the patient was not in distress. She was discharged home with instructions to follow up with the ER if anything should change or worsen. Reviewed by ASAD Larios 05/17/2019 05:00 P Electronically Signed by Stu Ng MD 05/18/2019 09:34 A
== END ==
LOC: M IRPRO 08:17
PROVIDERS: ATTEND Internal Medicine Pulmonary Disease
DX: D14.31 Benign neoplasm of right bronchus and lung (principal); J95.811 Postprocedural pneumothorax

== ENCOUNTER → 2019-06-14 | Outpatient (CLI) | payer MEDICARE ==
[~2019-06-14] MED LIST changes: -LIDOCAINE 1% MDV 20ML VIAL As Ordered ONE
--- NOTE | 2019-06-14 15:20 | REP ---
PET/CT: HISTORY: Other nonspecific abnormal finding of the lung field. Comparisons: Comparison CT study of the chest April 06, 2019. TECHNIQUE: 50 minutes following the intravenous injection of a 9.25 mCi dose of F-18 FDG, three-dimensional PET scintigraphy is acquired from the skull base to the proximal thighs. Triplanar noncontrast CT scanning is acquired through the same anatomic range for attenuation correction, and image registration with scan parameters optimized to minimize radiation exposure to the patient. PET scintigraphy and CT datasets were fused and displayed on a workstation with multiplanar and projection display capability. PET/CT FINDINGS: Head and neck soft tissues are unremarkable. The mass noted in the right middle lobe of the lung shows hypermetabolic uptake. Maximum standard uptake value within this lesion is 10.25. There is no evidence of hilar hypermetabolic uptake. There is an equivocal focus of increased uptake in a subcarinal lymph node with maximum SUV value 3.45. This is not definitely enlarged. No other evidence of adenopathy is seen. No other abnormal intrathoracic hypermetabolic uptake is seen. No abnormal uptake is seen in the abdomen or pelvis. IMPRESSION: The right middle lobe mass in the lung is hypermetabolic. There is an equivocal subcarinal lymph node. No other abnormal hypermetabolic uptake is seen. Electronically Signed by Angelo White MD 06/14/2019 04:41 P
== END ==
LOC: M PLARAD 09:59
PROVIDERS: ATTEND Internal Medicine Pulmonary Disease
DX: R91.8 Other nonspecific abnormal finding of lung field (principal); R59.0 Localized enlarged lymph nodes
CPT/HCPCS: 78815; A9552

== ENCOUNTER → 2019-07-03 | Outpatient (CLI) | payer MEDICARE ==
[~2019-07-03] MED LIST changes: +AMOX125C PO; +OMEP1CAP73 PO
[2019-07-03 13:11] LABS: CALCIUM LEVEL 8.3 MG/DL (8.8-10.2); CREATININE FOR GFR 1.41 MG/DL (0.55-1.30); GLOMERULAR FILTRATION RATE 38.9 (>39)
== END ==
LOC: M LAB 12:11
PROVIDERS: ATTEND Internal Medicine Pulmonary Disease
DX: Z01.812 Encounter for preprocedural laboratory examination (principal)

== ENCOUNTER → 2019-07-03 | Outpatient (CLI) | payer MEDICARE | LOC: M LABSMTC 11:33 | PROVIDERS: ATTEND Anesthesiology | DX: Z01.812 Encounter for preprocedural laboratory examination (principal); Z11.59 Encounter for screening for other viral diseases ==

== ENCOUNTER 2019-07-06 06:00 | Day surgery (SDC) | payer MEDICARE ==
[~2019-07-06] VITALS: Ht 165.1 cm; Wt 89.7 kg
[2019-07-06] MEDS ORDERED: LR 1,000 ML IV ONE (07:00)
[2019-07-06] MEDS ORDERED: propofoL 200 MG/20 ML VIAL As Ordered ONE (07:07)
[2019-07-06] MEDS ORDERED: MIDAZOLAM INJ 2MG/2ML VIAL (J2250 PER 1MG) As Ordered ONE (07:07)
[2019-07-06] MEDS ORDERED: ROCURONIUM BROMIDE 50 MG/5 ML VIAL As Ordered ONE (07:07)
[2019-07-06] MEDS ORDERED: LIDOCAINE 2% 100MG/5ML SDV (FOR ANES.) As Ordered ONE (07:07)
[2019-07-06] MEDS ORDERED: fentaNYL 100 MCG/2 ML INJECTION (J3010) As Ordered ONE (07:07)
[2019-07-06] MEDS ORDERED: dexameTHASONE 4 MG/ML 1ML VIAL (J1100 PER 1MG) As Ordered ONE ×2 (07:08→08:53)
[2019-07-06] MEDS ORDERED: ONDANSETRON 4MG/2ML VIAL As Ordered ONE (07:08)
[2019-07-06] MEDS ORDERED: THROMBIN SOLN 5,000 UNITS VIAL As Ordered ONE (07:14)
[2019-07-06] MEDS ORDERED: CETACAINE SPRAY 5GM As Ordered ONE (07:15)
[2019-07-06] MEDS ORDERED: LIDOCAINE 1% SDV 30ML VIAL As Ordered ONE (07:15)
[2019-07-06] MEDS ORDERED: LIDOCAINE VISCOUS 2% SOLN 15ML UDC As Ordered ONE (07:15)
[2019-07-06] MEDS ORDERED: EPINEPHrine 1MG/10ML SYRINGE 1.5IN As Ordered ONE (07:15)
[2019-07-06] MEDS ORDERED: SUGAMMADEX SODIUM 500 MG/5 ML VIAL (BRIDION) As Ordered ONE (07:16)
[2019-07-06] MEDS ORDERED: PHENYLephrine HCL 500 MCG/5 ML (100MCG/ML) SYRINGE (J2370) As Ordered ONE ×2 (09:01→09:26)
[2019-07-06] MEDS ORDERED: ONDANSETRON 4MG/2ML VIAL IV PRN (10:00)
[2019-07-06] MEDS ORDERED: fentaNYL 100 MCG/2 ML INJECTION (J3010) IV PRN (10:00)
[2019-07-06] MEDS ORDERED: LR 1,000 ML IV SCH (10:15)
--- NOTE | 2019-07-06 10:21 | REP ---
LIMITED CHEST: Single view. HISTORY: Intraprocedural imaging. Right middle lobe abnormality. 1 minutes 57 seconds of fluoroscopy time is reported. FINDINGS: A single last image hold fluoroscopically obtained spot radiograph of the right chest demonstrates bronchoscopic position. Unreviewed
--- NOTE | 2019-07-06 11:20 | REP ---
CHEST, PORTABLE: AP portable view of the chest is performed and compared to several prior studies most recently 05/17/2019. Right lung base mass density is again noted. There is cardiomegaly. There is no pneumothorax or pleural effusion. There is calcification of the thoracic aorta. Mediastinal silhouette is unchanged. Left single lead pacemaker is noted. Electronically Signed by Stu Ng MD 07/06/2019 12:20 P
[2019-07-06 11:40] VITALS: BP 125/58
--- NOTE | 2019-07-07 16:36 | ROOR ---
Patient Name: Suzanne Naranjo Procedure Date: 07/06/2019 7:20 AM Date of : 1945 Admit Type: Outpatient Age: 73 Note Status: Finalized Attending MD: Faye Franks MD Procedure: Bronchoscopy Indications: Right middle lobe mass Providers: Faye Franks MD (Doctor) Referring MD: 1. No Referring Physician 1. No Referring Physician, Admin. (Referring MD) Requesting Physician: Medicines: General Anesthesia, Cetacaine topical Complications: No immediate complications. Estimated blood loss: Minimal Procedure: Pre-Anesthesia Assessment: - Prior to the procedure, a History and Physical was performed, and patient medications and allergies were reviewed. The patient's tolerance of previous anesthesia was also reviewed. The risks and benefits of the procedure and the sedation options and risks were discussed with the patient. All questions were answered, and informed consent was obtained. Prior Anticoagulants: The patient has taken no previous anticoagulant or antiplatelet agents. ASA Grade Assessment: III - A patient with severe systemic disease. After reviewing the risks and benefits, the patient was deemed in satisfactory condition to undergo the procedure. The Bronchoscope was introduced through the mouth, via the endotracheal tube (the patient was intubated for the procedure) and advanced to the tracheobronchial tree of both lungs. The procedure was accomplished without difficulty. Findings: The endotracheal tube is in good position. The visualized portion of the trachea is of normal caliber. The refugio is sharp. The tracheobronchial tree was examined to at least the first subsegmental level. Bronchial with scattered pitting and webbing; there are no endobronchial lesions, and no significant secretions. Fluoroscopy and radial ultrasound guided transbronchial brushings of a mass were obtained in the medial segment of the right middle lobe with a cytology brush and sent for routine cytology. Transbronchial brushing technique was selected because the sampling site was not accessible using standard endoscopic (bronchoscopic) techniques. Transbronchial needle aspirations of a mass were performed in the medial segment of the right middle lobe using a fine (19 gauge) needle and sent for routine cytology. The procedure was guided by fluoroscopy. Transbronchial needle aspiration technique was selected because the sampling site was not visible endoscopically. Transbronchial biopsies of a mass were performed in the medial segment of the right middle lobe using forceps and sent for histopathology examination. The procedure was guided by fluoroscopy. Transbronchial biopsy technique was selected because the sampling site was not visible endoscopically. An endobronchial ultrasound endoscope was utilized in order to assist with fine needle aspiration in the subcarinal area. Transbronchial needle aspirations of a lymph node were performed in the subcarinal area using an Olympus EBUS-TBNA 21 gauge needle and sent for routine cytology. The procedure was guided by ultrasound. Transbronchial needle aspiration technique was selected because the sampling site was not visible endoscopically. Estimated blood loss: minimal. Impression: - Right middle lobe mass - The airway examination was normal. - Transbronchial brushings were obtained. - A transbronchial needle aspiration was performed. - Transbronchial lung biopsies were performed. - Endobronchial ultrasound was performed. - A transbronchial needle aspiration was performed. Recommendation: - Follow up with bronchoscopist as previously scheduled. Attending Participation: I personally performed the entire procedure. Faye Franks MD 07/07/2019 4:36:35 PM Number of Addenda: 0 Note Initiated On: 07/06/2019 7:20 AM
== END 2019-07-06 12:00 | disposition home or self-care (01) ==
LOC: M SDC 06:00
PROVIDERS: ATTEND Internal Medicine Pulmonary Disease
DX: C34.2 Malignant neoplasm of middle lobe, bronchus or lung (principal); C77.1 Secondary and unspecified malignant neoplasm of intrathoracic lymph nodes; R04.2 Hemoptysis; R12 Heartburn; E11.9 Type 2 diabetes mellitus without complications; E03.9 Hypothyroidism, unspecified; K44.9 Diaphragmatic hernia without obstruction or gangrene; I10 Essential (primary) hypertension; E78.49 Other hyperlipidemia; I48.91 Unspecified atrial fibrillation; Z95.0 Presence of cardiac pacemaker; Z79.01 Long term (current) use of anticoagulants; M10.9 Gout, unspecified; K21.9 Gastro-esophageal reflux disease without esophagitis; Z87.891 Personal history of nicotine dependence; Z79.899 Other long term (current) drug therapy; J45.909 Unspecified asthma, uncomplicated; Z88.2 Allergy status to sulfonamides; Z88.1 Allergy status to other antibiotic agents; Z88.5 Allergy status to narcotic agent
CPT/HCPCS: 31623; 31628; 31629; 31652; 71045; 76000; 88104; 88173; 88305; J1100; J2250; J2370; J2405; J3010

== ENCOUNTER → 2019-07-25 | Outpatient (CLI) | payer MEDICARE ==
[~2019-07-25] MED LIST changes: +CEPH500C PO; +FOLI1TAB11 PO; +ONDA8TAB10 PO; +PROC10TA4 PO; +ZYLO300T6 PO
[2019-07-25 19:01] LABS: BASO % 0.6 % (0.0-1.0); EOS # 0.4 10^3/uL (0.0-0.5); EOS % 5.3 % (0.0-3.0); HEMATOCRIT 32.7 % (36.0-47.0); HEMOGLOBIN 10.4 g/dl (12.0-15.5); LYMPH # 1.6 10^3/uL (1.5-5.0); LYMPH % 22.1 % (24.0-44.0); MEAN CORPUSCULAR HEMOGLOBIN 30.3 pg (27.0-33.0); MEAN CORPUSCULAR HGB CONC 31.8 g/dl (32.0-36.5); MEAN CORPUSCULAR VOLUME 95.3 fl (80.0-96.0); MONO # 0.5 10^3/uL (0.0-0.8); MONO % 6.4 % (0.0-5.0); NEUTROPHILS # 4.7 10^3/uL (1.5-8.5); NEUTROPHILS % 65.5 % (36.0-66.0); PLATELET COUNT, AUTOMATED 243 10^3/uL (150-450); RED BLOOD COUNT 3.43 10^6/uL (4.00-5.40); WHITE BLOOD COUNT 7.2 10^3/uL (4.0-10.0)
[2019-07-25 19:10] LABS: ALBUMIN 3.6 GM/DL (3.2-5.2); BILIRUBIN,TOTAL 0.7 MG/DL (0.2-1.0); CALCIUM LEVEL 8.8 MG/DL (8.8-10.2); CREATININE FOR GFR 1.2 MG/DL (0.55-1.30); GLOMERULAR FILTRATION RATE 46.9 (>39); MAGNESIUM LEVEL 1.7 MG/DL (1.8-2.4); POTASSIUM SERUM 4.3 MEQ/L (3.5-5.1); TOTAL PROTEIN 6.1 GM/DL (6.4-8.2)
[2019-07-25 19:11] LABS: INR 1.6; PROTHROMBIN TIME 18.8 SECONDS (11.8-14.0)
[2019-07-25 19:12] LABS: PARTIAL THROMBOPLASTIN TIME 39.7 SECONDS (25.0-38.4)
== END ==
LOC: M LAB 16:29
PROVIDERS: ATTEND Internal Medicine Hematology & Oncology
DX: C34.90 Malignant neoplasm of unspecified part of unspecified bronchus or lung (principal)

== ENCOUNTER → 2019-08-02 | Outpatient (CLI) | payer MEDICARE ==
[~2019-08-02] MED LIST changes: +HYDR-3490 PO; -HYDR25TAB PO; +LIDO2.5C15 TOP; -LISI-542 PO; +LISI-898 PO; +LISI10TA22 PO; -LISI10TA4 PO; +MAGICMW PO; +PRED10TA2 PO; +SLOWTAB2 PO
== END ==
LOC: M ONCR 12:27
PROVIDERS: ATTEND Radiology Radiation Oncology
DX: C34.90 Malignant neoplasm of unspecified part of unspecified bronchus or lung (principal)

== ENCOUNTER → 2019-08-08 | Outpatient (CLI) | payer MEDICARE ==
--- NOTE | 2019-08-07 10:12 | RADONC ---
RADIATION ONCOLOGY DATE: 08/02/2019 CHIEF COMPLAINT: Non-small cell CA of the lung. HISTORY OF PRESENT ILLNESS: Ms. Naranjo is a 73-year-old lady, ex-smoker who quit 9 years ago after 20 years of smoking. presented with shortness of breath, cough, and hemoptysis in December or January of 2019. CT chest on 04/06/2019 showed, rounded mass-like lesion with some spiculation in the right middle lobe as well as some evidence of postobstructive atelectasis. It measured approximately 4 cm in size, however it was unchanged compared to the previous chest x-ray from February and March. There was a questionable adenopathy in the right hilar region which was difficult to evaluate without contrast. No significant mediastinal adenopathies. A spirometry flow volume loop testing was performed on 04/26/2019 which showed FVC is reduced and obstructive ratio is above the lower limit of normal. PET/CTon 06/14/2019 showed right middle lobe mass an atypical subcarinal lymph node noted. Maximum SUV of 10.25 and 3.45. Patient underwent biopsy initially un 05/17/2019 and was benign lung parenchyma. Repeat biopsy on 07/06/2019, the right middle lobe cytology brushing was positive for malignancy consistent with nonsmall cell CA. Right middle lobe biopsy, however, did not show evidence of malignancy. The subcarinal lymph node showed moderately to poorly differentiated metastatic nonsmall cell CA favoring adenocarcinoma.PD-L1 showed tumor proportion of 50%/ high expression insufficient squamous cells for ALK and auto S1 testing, negative EGFR, negative KRAS, negative for BRAF. Patient still has coughing and hemoptysis and she denies any recent weight changes. PAST MEDICAL HISTORY: Significant for Hypothyroidism. Hiatal hernia. Hypertension. Hyperlipidemia. Atrial fibrillation status post pacemaker. Questionable asthma. Herniated disc. CURRENT MEDICATIONS: - omeprazole 20 mg daily - Eliquis 5 mg two tablets daily - alprazolam 1 mg as needed - carvedilol 20.5 mg once daily - lisinopril 5 mg once daily - simvastatin 40 mg once daily - levothyroxine sodium 5 mg once daily - allopurinol 300 mg daily - spironolactone one tablet daily. ALLERGIES: SULFA which gives diarrhea. CIPRO gives hives. CODEINE makes her itch. REVIEW OF SYSTEMS: CONSTITUTIONAL: She denies fever, chills, night sweats or weight loss. HEENT: She denies congestion and sinus drip. She said she has a history of chronic rhinitis. No impairment of vision. RESPIRATORY: She has shortness of breath and cough with occasional hemoptysis. CARDIOVASCULAR: No palpitation. No chest pain. GI: There is no nausea or vomiting, constipation. MUSCULOSKELETAL: There is no bone pain. No joint swelling. No cramps. DERMATOLOGY: No rash. No history of psoriasis. PSYCHIATRIC: There is no history of depression or anxiety. PHYSICAL EXAMINATION: GENERAL: She is alert, oriented, well-developed, well-nourished. HEENT: Without lesion. No palpable lymphadenopathies. CARDIAC: Regular rhythm and rate. No murmurs. PULMONARY: Breath sounds are clear bilaterally. No rhonchi or crackles. ABDOMEN: Examination was not done. EXTREMITIES: +1 edema on the right ankle. SKIN: Cool and dry. No rashes. MUSCULOSKELETAL: Muscle tone is normal. Gait normal. There is no evidence of weakness. ECOG performance status: 1. STAGING: Al III A T2 N2. ICD10 code: C3-4.11. PATHOLOGICAL FINDINGS: As mentioned in the history of present illness (HPI). RADIOLOGICAL FIND: As mentioned in the HPI. ASSESSMENT: Ms. Naranjo is a 73-year-old ex-smoker who presented with symptoms of pneumonia according to the patient. Cough, shortness of breath, and hemoptysis in December or January of 2018. She was treated with antibiotics initially without improvement. Initially biopsy was nondiagnostic. Patient had a PET/CT on 06/14/2019 which showed mass in the right mid lobe, SUV 10.25 and also the equivocal subcarinal lymph node, SUV valve of 3.45. Repeated bronchoscopy and biopsy was performed on 07/06/2019. Biopsy of the right lobe mass was negative, however, right middle lobe brushing did show evidence of nonsmall cell carcinoma and the subcarinal lymph node FNA showed metastatic nonsmall cell carcinoma favoring adenocarcinoma. PD-L1 showed tumor proportion of 50%/ high expression insufficient squamous cells for ALK and auto S1 testing, negative EGFR, negative KRAS, negative for BRAF. RECOMMENDATION: Patient was accompanied by her daughter. We have discussed the nature of the disease and treatment options. We have reviewed NCCN guidelines and we understand stage III A adenocarcinoma of the lung is best treated concurrent with chemo RT. I discussed radiation therapy with a start concurrently with chemotherapy and we will coordinate it. I am planning to deliver a dose of 6600 cGy in 200 cGy daily fractions using radio-guided IMRT. I explained the procedure and potential side effects of radiation therapy included but not limited to fatigue, neuropathy and skin reactions. esophagitis and pneumonitis and change of blood count. I have given them a chance to ask questions and concerns and they were answered to their satisfaction. MTDD
[~2019-08-08] MED LIST changes: -HYDR-3490 PO; +HYDR25TAB PO; +LIDOCAINE 1% MDV 20ML VIAL As Ordered ONE; +LISI-542 PO; -LISI-898 PO; -LISI10TA22 PO; +LISI10TA4 PO; +MIDAZOLAM INJ 2MG/2ML VIAL (J2250 PER 1MG) As Ordered ONE; -PRED10TA2 PO; +ceFAZolin 1GM VIAL (J0690 PER 500MG) As Ordered ONE; +diphenhydrAMINE 50MG/ML VIAL (J1200) As Ordered ONE; +fentaNYL 100 MCG/2 ML INJECTION (J3010) As Ordered ONE
--- NOTE | 2019-08-08 14:54 | IRHP ---
[facility] IR Pre-Procedure H & P General Date of Service: Aug 08, 2019 Procedure: Same Day Surgery Interval History and Physical I have seen the patient and reviewed last H & P performed within 30 days. There is no significant interval change. History of Present Illness Chief Complaint The patient is a 73-year-old female admitted with a reason for visit of Lung Ca. PRE-PROCEDURE DIAGNOSIS:lung cancer HEART: normal rate. LUNGS: normal breathing at rest. ASA Classification ASA Classification: III-Severe systemic dis. Mallampati Score: II NPO: Yes Problems with prior sedation: No Obstructive Sleep Apnea: No Plan moderate sedation Allergies Coded Allergies: Sulfa (Sulfonamide Antibiotics) (Unverified Allergy, Intermediate, RASH, 07/06/19) ciprofloxacin (Unverified Allergy, Intermediate, HIVES, 07/06/19) codeine (Verified Allergy, Intermediate, RASH, 07/06/19) Home Medications Scheduled Allopurinol (Zyloprim), 1 TAB PO DAILY, (Reported) Apixaban (Eliquis), 5 MG PO BID, (Reported) Carvedilol (Carvedilol), 12.5 MG PO BID, (Reported) Cephalexin (Cephalexin), 500 MG PO QID, (Reported) Folic Acid (Folic Acid), 1 TAB PO DAILY Furosemide (Furosemide), 1 TAB PO 3XW, (Reported) Levothyroxine Sodium (Levothyroxine Sodium), 1 TAB PO DAILY, (Reported) Lisinopril (Lisinopril), 5 MG PO DAILY, (Reported) Magnesium Oxide (Magnesium), 400 MG PO DAILY, (Reported) Metformin HCl (Metformin HCl), 850 MG PO DAILY, (Reported) Omeprazole (Omeprazole), 20 MG PO DAILY, (Reported) Simvastatin (Simvastatin), 40 MG PO QHS, (Reported) Scheduled PRN Alprazolam (Alprazolam), 1 MG PO QID PRN for ANXIETY, (Reported) Ondansetron HCl (Ondansetron HCl), 8 MG PO Q6H PRN for NAUSEA OR VOMITING Prochlorperazine Maleate (Prochlorperazine Maleate), 10 MG PO Q8HP PRN for NAUSEA OR VOMITING Discontinued Medications Amoxicillin (Amoxicillin), Unknown Dose PO, (Reported) Discontinued Reason: Pt states not taking VS, I&O, 24H, Fishbone Vital Signs/I&O Vital Signs Date Time Temp Pulse Resp B/P (MAP) Pulse Ox O2 Delivery O2 Flow Rate FiO2 08/08/19 14:14 97.2 61 18 100 Room Air TIFF OLIVER MD Aug 08, 2019 14:54
--- NOTE | 2019-08-08 15:39 | POST-OPPD ---
Postoperative Procedure Note Date Of Procedure: Aug 08, 2019 Time Of Procedure: 15:38 PREOPERATIVE DIAGNOSIS:lung cancer POSTOPERATIVE DIAGNOSIS: same FINDINGS: patent right IJ PROCEDURE: right sided port placed SURGEON: jose antonio ANESTHESIA: mod sed ESTIMATED BLOOD LOSS: < 5 ml COMPLICATIONS: none POSTOPERATIVE CONDITION: stable TIFF OLIVER MD Aug 08, 2019 15:39
[2019-08-08 17:44] VITALS: BP 114/58
--- NOTE | 2019-08-15 12:38 | REP ---
IR Ultrasound and fluoroscopy-guided port placement. IR Ultrasound of the neck. IR Moderate sedation. Clinical information: Lung cancer. Physician: Dr. Adam. Procedure: The patient was advised of the benefits, risks, and alternatives of the procedure and informed consent was obtained. A time-out was performed with verification of the patient's name, MRN, site of procedure and type of procedure to be performed. The patient was positioned in the supine position on the angiographic table. The site was prepped and draped in the usual sterile fashion. Moderate sedation was performed by the physician including the presence of an independent trained observer who assisted and monitored the patient's level of consciousness and physiologic status. Following the administration of fentanyl and Versed, the physician spent 30 minutes of continuous face to face time with the patient. Ultrasound of the neck reveals a patent and compressible right internal jugular vein. A manager delivery radiograph reveals a cardiac device. The neck and anterior chest wall were anesthetized with lidocaine. The right internal jugular vein was accessed using a microintroducer needle under ultrasound guidance, via a lateral approach. An 018 wire was advanced into the superior vena cava, the needle was removed and a microsheath was placed. An Amplatz wire was then passed into the inferior vena cava. An incision at the internal jugular vein access site and anterior chest wall were made using a scalpel. An incision was made at the anterior chest wall. A small pocket was created using a combination of blunt and sharp dissection. A tunneling device was then used to pass the catheter from the pocket to the neck puncture site. An 8-Omani Angio dynamics Smart power port was then positioned in the pocket. The catheter was then measured and cut. The introducer sheath was exchanged for a peel-away sheath. The catheter was passed through the peel-away sheath into the internal jugular vein and the peel-away sheath was removed. The port tip was positioned at the cavoatrial junction. The port was then accessed with a Lee needle. The port flushes and aspirates well. The puncture site in the neck was closed. The chest wall incision was then closed with 2-0 Vicryl and 4-0 Monocryl. Glue and Steri-Strips were applied. A sterile dressing was then applied. The patient tolerated the procedure well and was returned to the PRU in stable condition. Estimated blood loss: <5 ml. Complications: None. Conclusion: 1. Successful placement of an 8-Omani Angio dynamics Smart power port via the right internal jugular vein. The port is ready for immediate use. 2. Patient to follow up in IR clinic in 2 weeks. Thank you for this referral. Electronically Signed by Carine Adam MD 08/15/2019 12:36 P
== END ==
LOC: M IRPRO 13:26
PROVIDERS: ATTEND Radiology Diagnostic Radiology
DX: C34.2 Malignant neoplasm of middle lobe, bronchus or lung (principal); I10 Essential (primary) hypertension; E03.9 Hypothyroidism, unspecified; K44.9 Diaphragmatic hernia without obstruction or gangrene; E78.5 Hyperlipidemia, unspecified; I48.91 Unspecified atrial fibrillation; Z88.1 Allergy status to other antibiotic agents; Z88.2 Allergy status to sulfonamides; Z88.5 Allergy status to narcotic agent; Z79.01 Long term (current) use of anticoagulants; Z79.891 Long term (current) use of opiate analgesic; Z79.899 Other long term (current) drug therapy; Z95.5 Presence of coronary angioplasty implant and graft
CPT/HCPCS: 36561; 99152; 99153; C1769; C1788; C1894; J0690; J1200; J1642; J1644; J2250; J3010

== ENCOUNTER 2019-08-15 13:12 | Outpatient (RCR) | payer MEDICARE ==
[~2019-08-15 13:12] MED LIST changes: -LIDO2.5C15 TOP; -LIDOCAINE 1% MDV 20ML VIAL As Ordered ONE; -MAGICMW PO; -MIDAZOLAM INJ 2MG/2ML VIAL (J2250 PER 1MG) As Ordered ONE; -SLOWTAB2 PO; -ceFAZolin 1GM VIAL (J0690 PER 500MG) As Ordered ONE; -diphenhydrAMINE 50MG/ML VIAL (J1200) As Ordered ONE; -fentaNYL 100 MCG/2 ML INJECTION (J3010) As Ordered ONE
--- NOTE | 2019-08-24 12:00 | RADONC ---
RADIATION ONCOLOGY SIMULATION NOTE DATE: 08/15/2019 CHART NUMBER: [id number] SIMULATION NOTE: Ms. Naranjo was taken to the CT scan for CT simulation of her lung field. CT was accomplished without difficulty or discomfort. Radiation treatment planning is underway and radiation treatments will begin subsequently. An immobilization device was created without difficulty or discomfort. It will be used throughout the course of treatment. I was physically present throughout the course of CT simulation.
[2019-09-01] MEDS ORDERED: LIDO2.5C15 TOP (10:41)
[2019-09-29] MEDS ORDERED: MAGICMW PO (11:45)
[2019-10-12] MEDS ORDERED: MAGN400C2 PO (13:06)
[2019-10-26] MEDS ORDERED: SLOWTAB2 PO (11:18)
[2019-11-10] MEDS ORDERED: SLOWTAB2 PO (15:39)
== END 2019-09-09 ==
LOC: M ONCR 13:12
PROVIDERS: ATTEND Radiology Radiation Oncology
DX: C34.11 Malignant neoplasm of upper lobe, right bronchus or lung (principal)

== ENCOUNTER → 2019-08-23 | Outpatient (POV) | payer MEDICARE ==
--- NOTE | 2019-08-25 11:40 | IRPN ---
[facility] IR Progress Note IR Progress Note DATE: Aug 23, 2019 Patient agreed to this telephone consultation. Duration of call was 5 minutes. FOLLOW-UP: Status post port placement. Port will be used this . Patient states there is no pain or difficulty at the port site. No fevers or chills. IMPRESSION: Doing well status post port placement. No further follow-up scheduled unless initiated by patient and or referring provider. Thank you for this referral Allergies Coded Allergies: Sulfa (Sulfonamide Antibiotics) (Unverified Allergy, Intermediate, RASH, 07/06/19) ciprofloxacin (Unverified Allergy, Intermediate, HIVES, 07/06/19) codeine (Verified Allergy, Intermediate, RASH, 07/06/19) TIFF OLIVER MD Aug 25, 2019 11:40
== END ==
LOC: M IRPOV 12:54
PROVIDERS: ATTEND Radiology Diagnostic Radiology
DX: Z45.2 Encounter for adjustment and management of vascular access device (principal)

== ENCOUNTER → 2019-10-10 | Outpatient (RCR) | payer MEDICARE ==
[~2019-10-10] MED LIST changes: +LIDO2.5C15 TOP; +MAGICMW PO; +SLOWTAB2 PO
[2019-10-18 12:45] LABS: BASO % 0.3 % (0.0-1.0); EOS # 0.4 10^3/uL (0.0-0.5); EOS % 5.4 % (0.0-3.0); HEMATOCRIT 28.9 % (36.0-47.0); HEMOGLOBIN 9.3 g/dl (12.0-15.5); LYMPH # 1.3 10^3/uL (1.5-5.0); MEAN CORPUSCULAR HGB CONC 32.2 g/dl (32.0-36.5); MEAN CORPUSCULAR VOLUME 93.2 fl (80.0-96.0); MONO # 0.3 10^3/uL (0.0-0.8); MONO % 3.3 % (0.0-5.0); NEUTROPHILS # 5.9 10^3/uL (1.5-8.5); NEUTROPHILS % 73.5 % (36.0-66.0); PLATELET COUNT, AUTOMATED 262 10^3/uL (150-450)
--- NOTE | 2019-11-18 07:28 | MEDONC ---
DATE OF VISIT: 09/08/2019 HISTORY OF CURRENT ILLNESS: Suzanne Naranjo is a 73-year-old lady. Patient has known lung cancer. Patient is stage IIIA. Patient has positive subcarinal nodes. Patient was started on combined chemotherapy and radiation. Patient to date has received two doses of radiation, and the patient to date has received one week of chemotherapy. Patients chemotherapy plan is to have weekly chemotherapy while on radiation. Patient did state that on day two after chemotherapy, the patient did have a little bit of nausea. Also, the patient has been complaining of difficulty sleeping at night. Patient has been complaining of feeling cold and chills at night. REVIEW OF SYSTEMS: General: She has been having chills, but no fever and no sweats. Head: No headache. Eyes: No eye problems. HEENT: No hearing loss. No mouth sores. No dysphagia. Respiratory: No shortness of breath. No cough. No phlegm. Cardiovascular: No palpitations. No chest pains. Gastrointestinal: Patient does have some gastrointestinal discomfort. Patient is known to have a hernia. Musculoskeletal: No complaints. PHYSICAL EXAMINATION: VITAL SIGNS: Patient had a pulse of 58, respirations 18, blood pressure 160/73, temperature 97.1. GENERAL: She is awake, alert, oriented to person and place. HEAD: Normocephalic. EYES: Extraocular motions intact. LUNGS: Bilateral breath sounds present. No wheezing, rales, or rhonchi. CARDIAC: Regular rate and rhythm. ABDOMEN: Soft. EXTREMITIES: No pedal edema. ALLERGIES: SULFA. IMPRESSION: This is a 73-year-old lady with lung cancer stage IIIA. Patient has been getting weekly chemotherapy with carboplatin and paclitaxel. PLAN: Continue weekly chemotherapy as ordered. Radiation has been on hold, restart radiation as soon as possible. MTDD
== END ==
LOC: M ONCR 09-16 11:12
PROVIDERS: ATTEND Radiology Radiation Oncology
DX: C34.11 Malignant neoplasm of upper lobe, right bronchus or lung (principal); Z88.2 Allergy status to sulfonamides; Z88.5 Allergy status to narcotic agent; Z88.1 Allergy status to other antibiotic agents

== ENCOUNTER 2019-11-03 11:05 | Outpatient (RCR) | payer MEDICARE ==
[2019-11-10] MEDS ORDERED: SLOWTAB2 PO (15:39)
== END 2019-11-09 ==
LOC: M ONCR 11:05
PROVIDERS: ATTEND General Practice
DX: C34.11 Malignant neoplasm of upper lobe, right bronchus or lung (principal); R05 Cough; Z88.2 Allergy status to sulfonamides; Z88.8 Allergy status to other drugs, medicaments and biological substances; Z88.5 Allergy status to narcotic agent

== ENCOUNTER → 2020-03-14 | Outpatient (CLI) | payer MEDICARE ==
[~2020-03-14] MED LIST changes: +HYDR-3490 PO; -HYDR25TAB PO; +ISOVUE-370 76% 100ML VIAL As Ordered ONE; -LISI-542 PO; +LISI-898 PO; +LISI10TA22 PO; -LISI10TA4 PO; +PRED10TA2 PO
--- NOTE | 2020-03-14 15:56 | REP ---
INDICATION: F/U LUNG CA COMPARISON: 09/08/2019 TECHNIQUE: Axial contrast enhanced images from the thoracic inlet to the upper abdomen with coronal and sagittal reformations using 75 ml Isovue 370 intravenous contrast material. This CT examination was performed using the following dose reduction techniques: Automated exposure control, adjustment of mA and/or kv according to the patient's size, and use of iterative reconstruction technique. FINDINGS: Moderate to large right pleural effusion has considerably increased from prior examination and demonstrates adjacent passive atelectasis. Significant areas of consolidation are identified extending from the perihilar region into the right upper lobe, right middle lobe and right lower lobe which are increased from prior examination along with patchy bilateral mid to lower lobe alveolar opacities which are also increased from prior examination. Mediastinal lymph nodes are nonspecific in size and appearance. Further evaluation of the mediastinum demonstrates atherosclerotic changes to the thoracic aorta and coronary arteries. Cardiomegaly is again noted and a small pericardial effusion is now identified. Upper abdomen demonstrates contrast reflux into the IVC and hepatic veins suggesting element of cardiomyopathy. Normal bilateral adrenal glands noted. IMPRESSION: Moderate to large right pleural effusion along with primarily right-sided multifocal consolidations and bilateral alveolar opacities all of which appear increased from prior examination. Differential diagnosis includes an acute infectious/inflammatory process, malignancy, along with underlying sequelae of cardiomyopathy. <Electronically signed by Salinas Garcia > 03/14/20 [id number]
== END ==
LOC: M RAD 14:26
PROVIDERS: ATTEND Internal Medicine Hematology & Oncology
DX: C34.90 Malignant neoplasm of unspecified part of unspecified bronchus or lung (principal); J91.0 Malignant pleural effusion
CPT/HCPCS: 71260; Q9967

== ENCOUNTER → 2020-03-19 | Outpatient (REF) | payer MEDICARE ==
[~2020-03-19] MED LIST changes: -ISOVUE-370 76% 100ML VIAL As Ordered ONE
== END ==
LOC: M LAB REF 17:00
PROVIDERS: ATTEND Internal Medicine Pulmonary Disease
DX: C34.11 Malignant neoplasm of upper lobe, right bronchus or lung (principal)

== ENCOUNTER → 2020-04-02 | Outpatient (CLI) | payer MEDICARE ==
[~2020-04-02] MED LIST changes: +LIDOCAINE 1% MDV 20ML VIAL As Ordered ONE; +SODIUM BICARBONATE 8.4% INJ 50MEQ 50 ML VIAL As Ordered ONE
[2020-04-02 08:59] LABS: BASO % 0.3 % (0.0-1.0); EOS # 0.2 10^3/uL (0.0-0.5); EOS % 1.8 % (0.0-3.0); HEMATOCRIT 33.2 % (36.0-47.0); HEMOGLOBIN 10.5 g/dl (12.0-15.5); LYMPH # 1.2 10^3/uL (1.5-5.0); LYMPH % 12.7 % (24.0-44.0); MEAN CORPUSCULAR HEMOGLOBIN 28.1 pg (27.0-33.0); MEAN CORPUSCULAR HGB CONC 31.6 g/dl (32.0-36.5); MEAN CORPUSCULAR VOLUME 88.8 fl (80.0-96.0); MONO # 0.7 10^3/uL (0.0-0.8); MONO % 7.9 % (2.0-8.0); NEUTROPHILS % 77.1 % (36.0-66.0); PLATELET COUNT, AUTOMATED 237 10^3/uL (150-450); RED BLOOD COUNT 3.74 10^6/uL (4.00-5.40); WHITE BLOOD COUNT 9.1 10^3/uL (4.0-10.0)
[2020-04-02 09:25] LABS: INR 1.18; PROTHROMBIN TIME 15.3 SECONDS (12.5-14.3)
[2020-04-02 09:26] LABS: PARTIAL THROMBOPLASTIN TIME 30.2 SECONDS (24.2-38.5)
[2020-04-02 09:35] LABS: ALBUMIN 3.3 GM/DL (3.2-5.2); CALCIUM LEVEL 8.7 MG/DL (8.8-10.2); CREATININE FOR GFR 0.98 MG/DL (0.55-1.30); GLOMERULAR FILTRATION RATE 59.1 (>39); POTASSIUM SERUM 3.7 MEQ/L (3.5-5.1); TOTAL PROTEIN 5.8 GM/DL (6.4-8.2)
--- NOTE | 2020-04-02 10:03 | REP ---
INDICATION: POST THORACENTESIS. COMPARISON: Comparison chest x-ray September 09, 2019. TECHNIQUE: Two views.. FINDINGS: Right hemidiaphragm remains elevated. The pleural angles are sharp post thoracentesis bilaterally. There is no evidence of pneumothorax. There is a large masslike opacity in the right perihilar region correlating with the findings on recent CT study March 14, 2020. This is unchanged. A right-sided [id number] catheter is noted along with a left-sided unipolar pacemaker. Mild cardiomegaly is observed. IMPRESSION: Post right thoracentesis. No complication seen.. <Electronically signed by Anjum White > 04/02/20 [id number]
[2020-04-02 10:13] LABS: APPEARANCE, BODY FLUID HAZY (CLEAR); PLEURAL FL COLOR YELLOW (COLORLESS); SOURCE, BODY FLUID PLEURAL
[2020-04-02 10:17] LABS: SOURCE, BODY FLUID pH PLEURAL
[2020-04-02 10:20] LABS: PH BODY FLUID > 7.800 UNITS (NOT ESTABLISHED)
[2020-04-02 10:32] LABS: AMYLASE, BODY FLUID 25 U/L (NOT ESTABLISHED); LDH, BODY FLUID 101 U/L (NOT ESTABLISHED); SOURCE, BODY FLUID AMYLASE PLEURAL; SOURCE, BODY FLUID GLUCOSE PLEURAL; SOURCE, BODY FLUID LDH PLEURAL; SOURCE, BODY FLUID TOT PROTEIN PLEURAL; TOTAL PROTEIN, BODY FLUID 2.5 G/DL (NOT ESTABLISHED)
[2020-04-02 12:03] VITALS: BP 111/57
--- NOTE | 2020-04-02 16:17 | REP ---
INDICATION: RT PLEURAL EFFUSION LAB 1ST US 2ND The patient has a history of right-sided pleural effusion COMPARISON: None. TECHNIQUE: The procedure was performed by ASAD Burgos, under the direct supervision of Dr. White The risks and benefits of the procedure were explained to the patient and an informed consent was obtained both verbally and written. Directly prior to the start of the procedure a formal time-out was completed in the procedure room. Pleural fluid in right lung zone was localized using ultrasound guidance. The skin was prepped and draped in a sterile fashion. Fourteen ML of buffered lidocaine was used as a local anesthetic. Using ultrasound guidance an 8-Liberian multi side-hole catheter was inserted using trocar technique. FINDINGS: Three hundred twenty mL of yellow colored fluid was withdrawn and sent to the laboratory for further analysis. The patient tolerated the procedure well and there were no immediate complications. After the appropriate amount of monitored convalescence, the patient was discharged from the department. IMPRESSION: Ultrasound-guided thoracentesis with removal of 320 mL of yellow pleural fluid. <Electronically signed by Destiny Donaldson > 04/02/20 1402 <Electronically signed by Anjum White > 04/02/20 [id number]
== END ==
LOC: M IRPRO 08:14
PROVIDERS: ATTEND Internal Medicine Pulmonary Disease
DX: J90 Pleural effusion, not elsewhere classified (principal)

== ENCOUNTER → 2020-04-20 | Outpatient (CLI) | payer MEDICARE ==
[~2020-04-20] MED LIST changes: +ISOVUE-370 76% 100ML VIAL As Ordered ONE; -LIDOCAINE 1% MDV 20ML VIAL As Ordered ONE; -SODIUM BICARBONATE 8.4% INJ 50MEQ 50 ML VIAL As Ordered ONE
--- NOTE | 2020-04-20 14:45 | REP ---
INDICATION: MSCLLA COMPARISON: 03/14/2020 TECHNIQUE: Axial contrast enhanced images from the thoracic inlet to the upper abdomen with coronal and sagittal reformations using 75 ml Isovue 370 intravenous contrast material. This CT examination was performed using the following dose reduction techniques: Automated exposure control, adjustment of mA and/or kv according to the patient's size, and use of iterative reconstruction technique. FINDINGS: Examination is relatively stable when compared to 03/14/2020. Findings include moderate to large right pleural effusion, right upper lobe, right middle lobe, and right lower lobe areas of consolidation with air bronchograms and atelectasis along with subtle ground-glass opacities and linear atelectasis involving the left lower lung zone. The mediastinum again demonstrates cardiomegaly with small stable pericardial effusion. Thoracic aorta without aneurysm or dissection. Pulmonary vasculature is grossly normal/stable. Small nonspecific mediastinal lymph nodes noted. IMPRESSION: 1. No significant change from prior examination. 2. Primarily right-sided areas of consolidation along with moderate to large right pleural effusion and subtle left lower lung zone ground-glass opacities and linear atelectasis. 3. Stable cardiomegaly and small to moderate pericardial effusion again noted. <Electronically signed by Salinas Garcia > 04/20/20 [id number]
== END ==
LOC: M RAD 13:49
PROVIDERS: ATTEND Specialist
DX: C34.01 Malignant neoplasm of right main bronchus (principal)
CPT/HCPCS: 71260; Q9967

== ENCOUNTER → 2020-05-16 | Outpatient (CLI) | payer MEDICARE ==
[~2020-05-16] MED LIST changes: -ISOVUE-370 76% 100ML VIAL As Ordered ONE
--- NOTE | 2020-05-16 15:35 | REP ---
INDICATION: OCCLUSION/STENOSIS BIA CAROTID ARTERIES US 1ST LAB 2ND COMPARISON: 10/11/2010. TECHNIQUE: Real-time ultrasound evaluation and duplex Doppler interrogation of the extracranial carotid vasculature is performed. FINDINGS: There is significant plaquing in both carotid bulbs extending into the internal and external carotid arteries. Plaque is greater on the right than on the left. There is elevated peak systolic velocity in the right internal carotid artery with elevated ICA to CCA ratio consistent with stenosis of the right internal carotid artery 50-79%. There is normal direction of flow in both vertebral arteries. RIGHT LEFT Peak systolic velocity ICA 170 cm/s 101 cm/s End diastolic velocity ICA 47.2 cm/s 33.2 cm/s Peak systolic velocity CCA 42.0 cm/s 50.2cm/s Peak systolic velocity ECA 63.9 cm/s 123 cm/s ICA/CCA ratio 4.05 2.01 IMPRESSION: Severe plaque bilateral carotid bulbs extending into the internal carotid arteries. Significant stenosis right internal carotid artery 50-79%. Luminal narrowing left ICA less than 50% with no duplex Doppler sonographic evidence of hemodynamically significant stenosis. <Electronically signed by Stu Ng > 05/16/20 [id number]
[2020-05-16 16:29] LABS: ALBUMIN 3.3 GM/DL (3.2-5.2); BILIRUBIN,TOTAL 0.7 MG/DL (0.2-1.0); CALCIUM LEVEL 8.9 MG/DL (8.8-10.2); CHOLESTEROL RISK RATIO 2.459 (<5); CREATININE FOR GFR 1.06 MG/DL (0.55-1.30); GLOMERULAR FILTRATION RATE 53.9 (>39); MAGNESIUM LEVEL 1.2 MG/DL (1.8-2.4); POTASSIUM SERUM 3.6 MEQ/L (3.5-5.1); TOTAL PROTEIN 6.1 GM/DL (6.4-8.2)
== END ==
LOC: M LAB 13:58
PROVIDERS: ATTEND Physician Assistant
DX: I65.23 Occlusion and stenosis of bilateral carotid arteries (principal)

== ENCOUNTER 2020-05-25 14:27 | Inpatient (IN) | payer MEDICARE ==
[~2020-05-25] VITALS: Ht 167.6 cm; Wt 77.7 kg
[2020-05-25 15:57] LABS: BASO % 0.4 % (0.0-1.0); EOS # 0.5 10^3/uL (0.0-0.5); EOS % 6.1 % (0.0-3.0); HEMATOCRIT 30.6 % (36.0-47.0); HEMOGLOBIN 9.5 g/dl (12.0-15.5); LYMPH # 0.7 10^3/uL (1.5-5.0); LYMPH % 9.9 % (24.0-44.0); MEAN CORPUSCULAR HEMOGLOBIN 27.5 pg (27.0-33.0); MEAN CORPUSCULAR VOLUME 88.4 fl (80.0-96.0); MONO # 0.5 10^3/uL (0.0-0.8); MONO % 6.3 % (2.0-8.0); NEUTROPHILS # 5.6 10^3/uL (1.5-8.5); NEUTROPHILS % 76.9 % (36.0-66.0); PLATELET COUNT, AUTOMATED 210 10^3/uL (150-450); RED BLOOD COUNT 3.46 10^6/uL (4.00-5.40); WHITE BLOOD COUNT 7.3 10^3/uL (4.0-10.0)
--- NOTE | 2020-05-25 16:14 | REP ---
INDICATION: DYSPNEA/COUGH. COMPARISON: 04/02/2020 the latest prior and a two view exam. TECHNIQUE: Portable FINDINGS: The technique utilized in obtaining the radiograph has magnified the cardiac silhouette and accentuated the interstitial markings. The heart is enlarged and no new abnormal opacities have developed. There is no change in the osseous structures. Accentuated by technique. The tip of the MediPort device is unchanged remaining in the superior vena cava. Patchy right lower lobe opacities are essentially unchanged when the technical differences between the examinations are taken into consideration. There is no change in the appearance of the single chamber bipolar pacemaker device. IMPRESSION: Stable appearing chronic changes as described above <Electronically signed by Donald Pappas > 05/25/20 [id number]
[2020-05-25 17:10] LABS: ALBUMIN 3.2 GM/DL (3.2-5.2); BILIRUBIN,DIRECT 0.4 MG/DL (0.0-0.2); BILIRUBIN,TOTAL 0.8 MG/DL (0.2-1.0); CALCIUM LEVEL 8.8 MG/DL (8.8-10.2); CK-MB VALUE MASS 1.6 NG/ML (<3.6); CREATININE FOR GFR 1.15 MG/DL (0.55-1.30); GLOMERULAR FILTRATION RATE 49.1 (>39); MB/CK RELATIVE INDEX 1.82 (< OR =4); POTASSIUM SERUM 3.8 MEQ/L (3.5-5.1); TOTAL PROTEIN 6.1 GM/DL (6.4-8.2); TROPONIN I 0.04 NG/ML (< 0.10)
[2020-05-25] MEDS ORDERED: INCR1INH INH (17:44)
--- NOTE | 2020-05-25 17:45 | REP ---
INDICATION: edema. COMPARISON: Comparison study September 08, 2019.. TECHNIQUE: Left lower extremity duplex venous ultrasound. FINDINGS: The deep veins are anechoic and fully compressible from the groin to the popliteal fossa in the left lower extremity. Color flow imaging is homogeneous. Spectral Doppler interrogation demonstrates intact respiratory variation in flow and normal manual augmentation of flow. There is no evidence of deep vein thrombosis. IMPRESSION: Negative left lower extremity duplex venous ultrasound. No evidence of deep vein thrombosis. <Electronically signed by Anjum White > 05/25/20 1502
[2020-05-25] MEDS ORDERED: ISOVUE-370 76% 100ML VIAL As Ordered ONE (18:15)
[2020-05-25] MEDS ORDERED: ALPRAZolam 0.5 MG TAB PO PRN (18:30)
[2020-05-25] MEDS ORDERED: MAGIC MOUTHWASH SUSPENSION BTL PO PRN (18:30)
[2020-05-25] MEDS ORDERED: EMLA CREAM 5GM TUBE (LIDOCAINE/PRILOCAINE) TOP PRN (18:30)
[2020-05-25] MEDS ORDERED: GLUCAGON INJ 1MG VIAL SC PRN (18:45)
[2020-05-25] MEDS ORDERED: DEXTROSE 50% 50 ML SYRINGE IV PRN (18:45)
[2020-05-25] MEDS ORDERED: GLUCOSE 4GM CHEW TABLET PO PRN (18:45)
--- NOTE | 2020-05-25 19:17 | HPEPDOC ---
[facility] Medical History & Physical Date of Admission May 25, 2020 Date of Service: May 25, 2020 Attending Physician: FADY GRANADOS MD History and Physical CHIEF COMPLAINT: SOB, LLE swelling HISTORY OF PRESENT ILLNESS: 74 yo W with a history of recently diagnosed stage III NSCLC s/p radiation recently started on dervalumab Q2W, with a history of AFib on eliquis, CHF unclear subtype on lasix 20 BID, s/p PPM, hypothyroidism, HTN, HLD, asthma, smoker until recently, GERD and PVD with known bilateral carotid artherosclerosis, NIDDM who presented to the ED for worsening SOB and LLE swelli ng with decreased exercise tolerance. She denies any recent worsening cough, sputum, hemoptysis, fever, chills, nausea, emesis, chest pain, palpitations, abdominal pain or constipation. She reports mild diarrhea at baseline associated with her treatment. Daughter was at bedside during interview. In the ED, she was normotensive, afebrile and breathing comfortably on room air. Workup was notable for pproBNP of 5700, non-ischemic EKG, LLE doppler venous US without a DVT, CXR with chronic stable changes, Hgb 9.5, WBC 7.3, platelets 210, Na 141, K 3.8, BUN 48 and Cr 1.15. She also had a UA that was grossly positive with 3+ bacteria. She is pending a CTA chest, mostly for better delineation of h er pulmonary status as well as r/o PE that is unlikely given being on eliquis. On my exam, she has gross crackles bilaterally in posterior lung altman and has L>R lower extremities pitting edema c/f CHF exacerbation. I am now admitting her for most likely CHF exacerbation vs. unlikely immunotherapy pneumonitis. PAST MEDICAL HISTORY: Recently diagnosed stage III NSCLC s/p radiation recently started on dervalumab Q2W, with a history of AFib on eliquis, CHF unclear subtype on lasix 20 BID, s/p PPM, hypothyroidism, HTN, HLD, asthma, smoker until recently, GERD and PVD with known bilateral carotid artherosclerosis, NIDDM PAST SURGICAL HISTORY: Port placement Bronchoscopy Thoracentesis for R pleural effusion drainage SOCIAL HISTORY: Until recently was a longtime smoker No alcohol No illicit drugs FAMILY HISTORY: DM, HTN ALLERGIES: Please see below. REVIEW OF SYSTEMS:10 point ROS was reviewed and was otherwise negative except as noted in the HPI. HOME MEDICATIONS: Please see below. PHYSICAL EXAMINATION: VITAL SIGNS: see below GENERAL APPEARANCE: NAD HEENT: NCAT, PERRLA, EOMI, MMM, anicteric. CARDIOVASCULAR: RRR, no noted murmurs LUNGS: crackles throughout posterior lung altman, especially at the bases, no wheezing, no rhonchi ABDOMEN: obese, soft, normoactive bowel sounds, NTND EXTREMITIES: 2+ LLE edema, pitting, 1+ in RLE. WWP, good 2+ DP pulses bilaterally NEUROLOGICAL: CN2-12 intact, moving all extremities, clear speech PSYCHIATRIC: AOx3 LABORATORY DATA and IMAGING: as noted above in HPI. Otherwise please see below for details MICROBIOLOGY: Please see below. ASSESSMENT: 74 yo W with a history of recently diagnosed stage III NSCLC s/p radiation recently started on dervalumab Q2W, with a history of AFib on eliquis, CHF unclear subtype on lasix 20 BID, s/p PPM, hypothyroidism, HTN, HLD, asthma, smoker until recently, GERD and PVD with known bilateral carotid a rtherosclerosis, NIDDM who presented to the ED for worsening SOB and LLE swelling with decreased exercise tolerance and found to have an elevate BNP with chandler volume overload on examination and now admitted for CHF exacerbation vs. unlikely immunotherapy pneumonitis. CHF exacerbation: -TTE ordered -CTA for better imaging of chest as well as r/o PE -lasix 40 IV BID, for goal net negative 2L/24h -hold home PO diuretic -continue coreg, holding lisinopril during aggressive diuresis and contrast use -strict I/Os, daily weights, 2g sodium in consistent carb diet and 1.8L/24h fluid restriction Stage III NSCLC: -follows with Dr. Castellon, recently started on durvalumab a checkpoint inhibitor that target PD-1/L interaction, which can cause immunotherapy mediated pneumonitis so will f/u chest CT -has a history of R pleural effusion that was drained per Dr. Franks in the outpatient setting in 03/2020. Will f/u CT Gout? vs onc prescribed -continue allopurinol 300 QD History of Afib: -continue eliquis 5 BID GERD: -continue omeprazole HTN: -holding lisinopril while aggressively diuresing. Will monitor and treat as needed. Continue coreg HLD: -continue home simvastatin Asthma: -cont Combivent Anxiety: -continue PRN xanax Vital Signs Vital Signs Date Time Temp Pulse Resp B/P (MAP) Pulse Ox O2 Delivery O2 Flow Rate FiO2 05/25/20 14:29 98.7 60 20 124/65 (84) 96 Room Air Laboratory Data Labs 24H Laboratory Tests 2 05/25/20 15:32: Immature Granulocyte % (Auto) 0.4, Neutrophils (%) (Auto) 76.9H, Lymphocytes (%) (Auto) 9.9L, Monocytes (%) (Auto) 6.3, Eosinophils (%) (Auto) 6.1H, Basophils (%) (Auto) 0.4, Neutrophils # (Auto) 5.6, Lymphocytes # (Auto) 0.7L, Monocytes # (Auto) 0.5, Eosinophils # (Auto) 0.5, Basophils # (Auto) 0.0, Nucleated Red Blood Cells % (auto) 0.0, Anion Gap 8, Glomerular Filtration Rate 49.1, Calcium Level 8.8, Total Bilirubin 0.8, Direct Bilirubin 0.4H, Aspartate Amino Transf (AST/SGOT) 17, Alanine Aminotransferase (ALT/SGPT) 29, Alkaline Phosphatase 132 H, Total Creatine Kinase 88, Creatine Kinase MB 1.6, Creatine Kinase MB Relative Index 1.82, Troponin I 0.04, WF-Xtu-Y-Type Natriuretic Peptide 5710H, Total Protein 6.1L, Albumin 3.2, Albumin/Globulin Ratio 1.1L 05/25/20 17:45: Urine Color YELLOW, Urine Appearance CLEAR, Urine pH 5.0, Urine Specific [place] 1.013, Urine Protein NEGATIVE, Urine Glucose (UA) NEGATIVE, Urine Ketones NEGATIVE, Urine Blood 1+H, Urine Nitrite NEGATIVE, Urine Bilirubin NEGATIVE, Urine Urobilinogen 0.2, Urine Leukocyte Esterase 1+H, Urine WBC (Auto) 14H, Urine RBC (Auto) 1, Urine Hyaline Casts (Auto) 0, Urine Bacteria (Auto) 3+H, Urine Squamous Epithelial Cells 0, Urine Mucus (Auto) SMALL, Urine Sperm (Auto) CBC/BMP Laboratory Tests 05/25/20 15:32 Microbiology Microbiology 05/25/20 Respiratory Virus Panel (PCR) (MARTIN), Received Pending 05/25/20 Urine Culture, Received Pending Home Medications Scheduled Allopurinol (Zyloprim) 300 Mg Tablet, 300 MG PO DAILY Apixaban (Eliquis) 5 Mg Tab, 5 MG PO BID Carvedilol (Carvedilol) 12.5 Mg Tab, 12.5 MG PO BID Folic Acid (Folic Acid) 1 Mg Tablet, 1 TAB PO DAILY Furosemide (Furosemide) 20 Mg Tablet, 20 MG PO BID Lidocaine/Prilocaine (Lidocaine-Prilocaine Cream) 2.5%/2.5% Cream..g., 1 DOSE TOP ASDIRECTED Apply dime size to port area. Do not rub in, cover with saran wrap to protect clothing. Lisinopril (Lisinopril) 5 Mg Tab, 5 MG PO QHS Magnesium Chloride (Slow-Mag) 71.5 Mg Tablet.dr, 1 TAB PO BID Metformin HCl (Metformin HCl) 850 Mg Tab, 850 MG PO DAILY Omeprazole (Omeprazole) 20 Mg Capsule.dr, 20 MG PO DAILY Simvastatin (Simvastatin) 40 Mg Tab, 40 MG PO QHS Umeclidinium [place] (Incruse Ellipta) 62.5 Mcg Blst.w.dev, 1 PUFF INH DAILY Scheduled PRN Alprazolam (Alprazolam) 1 Mg Tab, 1 MG PO QID PRN for ANXIETY Magic Mouthwash (First-Mouthwash Blm) 1 Ea Susp, 15 ML PO QIDP PRN for Esophagitis (Diphenhydramine/maalox/lidocaine 1:1:1) May compound if kit unavailable. Take with straw Allergies Coded Allergies: Sulfa (Sulfonamide Antibiotics) (Unverified Allergy, Intermediate, RASH, 07/06/19) ciprofloxacin (Unverified Allergy, Intermediate, HIVES, 07/06/19) codeine (Verified Allergy, Intermediate, RASH, 07/06/19) diphenhydramine (Verified Allergy, Unknown, CAUSES ITCHING AND ANXIETY, 10/07/19) A-FIB/CHADSVASC A-FIB History Current/History of A-Fib/PAF?: Yes Current PO Anticoag Therapy: Yes Treatment Treatment ordered: ApixaFADY Fish MD May 25, 2020 19:17
--- NOTE | 2020-05-25 20:00 | ECGEPIP ---
[facility] - ED Test Date: 2020-05-25 Pat Name: MUKESH GUERRERO Department: Room: - Gender: Female Manager Security: : 1945 Requested By: DEVIN Pride Order Number: [id number] Reading MD: Sarah Edwards Measurements Intervals [place] Rate: 60 P: TN: QRS: 268 QRSD: 178 T: 102 QT: 544 QTc: 544 Interpretive Statements Ventricular-paced rhythm Electronically Signed on 05-25-2020 20:00:57 EDT by Sarah Edwards
--- NOTE | 2020-05-25 20:38 | REPVR ---
PROCEDURE INFORMATION: Exam: CTA Chest With Contrast Exam date and time: 05/25/2020 7:59 PM Age: 74 years old Clinical indication: Shortness of breath TECHNIQUE: Imaging protocol: Computed tomographic angiography of the chest with contrast. 3D rendering (Not supervised by radiologist): MIP and/or 3D reconstructed images were created by the technologist. Radiation optimization: All CT scans at this facility use at least one of these dose optimization techniques: automated exposure control; mA and/or kV adjustment per patient size (includes targeted exams where dose is matched to clinical indication); or iterative reconstruction. Contrast material: ISOVUE 370; Contrast volume: 75 ml; Contrast route: INTRAVENOUS (IV); COMPARISON: CT ANGIO CHEST 09/08/2019 2:21 PM FINDINGS: Pulmonary arteries: There is enlargement of the central pulmonary arteries, findings which can be associated with pulmonary arterial hypertension which should be correlated clinically. There are no pulmonary emboli. Aorta: Atherosclerotic changes in the thoracic aorta. There is no aortic dissection or aneurysm. Lungs: Infiltrate demonstrated in the right middle and right lower lobes. Findings compatible with postobstructive infiltrate and right perihilar neoplasm. Findings have progressed in comparison to the prior study of 09/08/2019 although grossly stable in comparison to the exam of 04/20/2020. Pleural spaces: Small right pleural effusion. Heart: Cardiomegaly. Dilated right atrium/right ventricle. Lymph nodes: Unremarkable. No enlarged lymph nodes. Bones/joints: The spine demonstrates mild degenerative changes. Osteoporosis. Soft tissues: Cirrhotic morphology in the liver. Otherwise unremarkable. IMPRESSION: 1. Small right pleural effusion. 2. Infiltrate demonstrated in the right middle and right lower lobes. Findings compatible with postobstructive infiltrate and right perihilar neoplasm. Findings have progressed in comparison to the prior study of 09/08/2019 although grossly stable in comparison to the exam of 04/20/2020. 3. There is no aortic dissection or aneurysm. 4. Cardiomegaly with dilated right heart suggestive of right heart failure. 5. There is enlargement of the central pulmonary arteries, findings which can be associated with pulmonary arterial hypertension which should be correlated clinically. 6. There are no pulmonary emboli. Electronically signed by: Tiago Croft On 05/25/2020 20:38:33 PM
[2020-05-25] MEDS: HumaLOG INSULIN (NovoLOG) PER UNIT SC SCH (21:00)
[2020-05-25] MEDS: FUROSEMIDE 40MG/4ML VIAL (J1940) IV SCH ×2 (21:39→23:17)
[2020-05-25 21:51] VITALS: BP 139/73
[2020-05-25] MEDS: APIXABAN 5 MG TAB (ELIQUIS) PO SCH (23:16)
[2020-05-25] MEDS: SIMVASTATIN 40 MG TAB PO SCH (23:16)
[2020-05-25] MEDS: CARVedilol 12.5 MG TAB PO SCH (23:17)
[2020-05-25] MEDS: MAGNESIUM OXIDE 400MG TAB (MAG-OX) PO SCH (23:19)
[2020-05-26 04:00] VITALS: BP 132/67
[2020-05-26] MEDS: TIOTROPIUM INHALER/CAPSULE (SPIRIVA) INH SCH (07:25)
[2020-05-26] MEDS: HumaLOG INSULIN (NovoLOG) PER UNIT SC SCH ×4 (07:30→21:00)
[2020-05-26 07:54] VITALS: BP 125/83
[2020-05-26 07:54] LABS: HEMATOCRIT 31.5 % (36.0-47.0); HEMOGLOBIN 9.7 g/dl (12.0-15.5); MEAN CORPUSCULAR HEMOGLOBIN 27.1 pg (27.0-33.0); MEAN CORPUSCULAR HGB CONC 30.8 g/dl (32.0-36.5); PLATELET COUNT, AUTOMATED 253 10^3/uL (150-450); RED BLOOD COUNT 3.58 10^6/uL (4.00-5.40); WHITE BLOOD COUNT 7.7 10^3/uL (4.0-10.0)
[2020-05-26] MEDS: FUROSEMIDE 40MG/4ML VIAL (J1940) IV SCH ×2 (08:00→16:00)
[2020-05-26] MEDS: MAGNESIUM OXIDE 400MG TAB (MAG-OX) PO SCH ×2 (08:13→21:47)
[2020-05-26] MEDS: allopurinoL 300 MG TAB PO SCH (08:14)
[2020-05-26] MEDS: FOLIC ACID 1 MG TAB PO SCH (08:14)
[2020-05-26] MEDS: APIXABAN 5 MG TAB (ELIQUIS) PO SCH ×2 (08:14→21:47)
[2020-05-26 08:15] LABS: BLOOD UREA NITROGEN 43 MG/DL (7-18); CALCIUM LEVEL 8.9 MG/DL (8.8-10.2); CARBON DIOXIDE LEVEL 26 MEQ/L (21-32); CHLORIDE LEVEL 106 MEQ/L (98-107); CREATININE FOR GFR 0.95 MG/DL (0.55-1.30); GLOMERULAR FILTRATION RATE > 60.0 (>39); GLUCOSE, FASTING 118 MG/DL (70-100); MAGNESIUM LEVEL 1.4 MG/DL (1.8-2.4); POTASSIUM SERUM 3.3 MEQ/L (3.5-5.1); SODIUM LEVEL 142 MEQ/L (136-145)
[2020-05-26] MEDS: CARVedilol 12.5 MG TAB PO SCH ×2 (08:15→21:47)
[2020-05-26] MEDS: OMEPRAZOLE 20 MG CAP PO SCH (09:51)
[2020-05-26] MEDS: MAG SULF 1GM/100ML (MAG RUN) 1 GM in IV 1 EA IV ONE ×2 (09:54→10:36)
[2020-05-26] MEDS ORDERED: POTASSIUM CHLORIDE 10 MEQ SR TABLET PO ONE (10:00)
--- NOTE | 2020-05-26 11:11 | IPNPDOC ---
Text Note Date of Service The patient was seen on 05/26/20. NOTE Subjective: -Feels better today -No acute events Objective: VITAL SIGNS: see below GENERAL APPEARANCE: NAD HEENT: NCAT, PERRLA, EOMI, MMM, anicteric. CARDIOVASCULAR: RRR, no noted murmurs LUNGS:Bibasilar posterior lung altman crackles, no wheezing, no rhonchi ABDOMEN: obese, soft, normoactive bowel sounds, NTND EXTREMITIES: Improving now 1+ LLE edema, pitting, trace in RLE. WWP, good 2+ DP pulses bilaterally NEUROLOGICAL: CN2-12 intact, moving all extremities, clear speech PSYCHIATRIC: AOx3 LABORATORY DATA: WBC 7.7 Hgb 9.7 platelets 253 Na 142 K 3.3 (repleted) Mag 1.4 (repleted) Cr 0.95 CTA chest: FINDINGS: Pulmonary arteries: There is enlargement of the central pulmonary arteries, findings which can be associated with pulmonary arterial hypertension which should be correlated clinically. There are no pulmonary emboli. Aorta: Atherosclerotic changes in the thoracic aorta. There is no aortic dissection or aneurysm. Lungs: Infiltrate demonstrated in the right middle and right lower lobes. Findings compatible with postobstructive infiltrate and right perihilar neoplasm. Findings have progressed in comparison to the prior study of 09/08/2019 although grossly stable in comparison to the exam of 04/20/2020. Pleural spaces: Small right pleural effusion. Heart: Cardiomegaly. Dilated right atrium/right ventricle. Lymph nodes: Unremarkable. No enlarged lymph nodes. Bones/joints: The spine demonstrates mild degenerative changes. Osteoporosis. Soft tissues: Cirrhotic morphology in the liver. Otherwise unremarkable. IMPRESSION: 1. Small right pleural effusion. 2. Infiltrate demonstrated in the right middle and right lower lobes. Findings compatible with postobstructive infiltrate and right perihilar neoplasm. Findings have progressed in comparison to the prior study of 09/08/2019 although grossly stable in comparison to the exam of 04/20/2020. 3. There is no aortic dissection or aneurysm. 4. Cardiomegaly with dilated right heart suggestive of right heart failure. 5. There is enlargement of the central pulmonary arteries, findings which can be associated with pulmonary arterial hypertension which should be correlated clinically. 6. There are no pulmonary emboli. LLE doppler venous US: The deep veins are anechoic and fully compressible from the groin to the popliteal fossa in the left lower extremity. Color flow imaging is homogeneous. Spectral Doppler interrogation demonstrates intact respiratory variation in flow and normal manual augmentation of flow. There is no evidence of deep vein thrombosis. IMPRESSION: Negative left lower extremity duplex venous ultrasound. No evidence of deep vein thrombosis. CXR: The technique utilized in obtaining the radiograph has magnified the cardiac silhouette and accentuated the interstitial markings. The heart is enlarged and no new abnormal opacities have developed. There is no change in the osseous structures. Accentuated by technique. The tip of the Med iPort device is unchanged remaining in the superior vena cava. Patchy right lower lobe opacities are essentially unchanged when the technical differences between the examinations are taken into consideration. There is no change in the appearance of the single chamber bipolar pacemaker device. IMPRESSION: Stable appearing chronic changes as described above MICROBIOLOGY: Please see below. ASSESSMENT: 74 yo W with a history of recently diagnosed stage III NSCLC s/p radiation recently started on dervalumab Q2W, with a history of AFib on eliquis, CHF unclear subtype on lasix 20 BID, s/p PPM, hypothyroidism, HTN, HLD, asthma, smoker until recently, GERD and PVD with known bilateral carotid artherosclerosis, NIDDM who presented to the ED for worsening SOB and LLE swelling with decreased exercise tolerance and found to have an elevate BNP with chandler volume overload on examination and now admitted for CHF exacerbation vs. unlikely immunotherapy pneumonitis. CHF exacerbation: -f/u TTE -CTA was without a PE and showed known stable infiltrate in the right middle and right lower lobes compatible with postobstructive infiltrate and right perihilar neoplasm -lasix 40 IV BID, for goal net negative 2L/24h -hold home PO diuretic -continue coreg, holding lisinopril during aggressive diuresis and contrast use -strict I/Os, daily weights, 2g sodium in consistent carb diet and 1.8L/24h fluid restriction Stage III NSCLC: -follows with Dr. Castellon, recently started on durvalumab a checkpoint inhibitor that target PD-1/L interaction, which can cause immunotherapy mediated pneumonitis so will f/u chest CT -has a history of R pleural effusion that was drained per Dr. Franks in the outpatient setting in 03/2020. Will f/u CT -CTA was without a PE and showed known stable infiltrate in the right middle and right lower lobes compatible with postobstructive infiltrate and right perihilar neoplasm Gout? vs onc prescribed -continue allopurinol 300 QD History of Afib: -continue eliquis 5 BID GERD: -continue omeprazole HTN: -holding lisinopril while aggressively diuresing. Will monitor and treat as needed. Continue coreg HLD: -continue home simvastatin Asthma: -cont Combivent Anxiety: -continue PRN xanax VS,Fishbone, I+O VS, Fishbone, I+O Laboratory Tests 05/25/20 15:32 05/26/20 07:18 Vital Signs Date Time Temp Pulse Resp B/P (MAP) Pulse Ox O2 Delivery O2 Flow Rate FiO2 05/26/20 08:15 60 125/83 05/26/20 07:54 97.3 18 97 Room Air I&O- Last 24 Hours up to 6 AM 05/26/20 06:00 Intake Total 60 ml Output Total 2150 ml Balance -2090 ml FADY GRANADOS MD May 26, 2020 08:53
[2020-05-26 12:02] VITALS: BP 117/67
[2020-05-26 15:36] VITALS: BP 141/66
[2020-05-26 20:00] VITALS: BP 120/60
[2020-05-26] MEDS: SIMVASTATIN 40 MG TAB PO SCH (21:47)
[2020-05-27 00:03] VITALS: BP 130/70
[2020-05-27] MEDS: FUROSEMIDE 40MG/4ML VIAL (J1940) IV SCH ×3 (00:44→17:19)
[2020-05-27] MEDS: ACETAMINOPHEN TAB 650MG DOSE (2X325MG) PO PRN (00:48)
[2020-05-27] MEDS ORDERED: CALCIUM CARBONATE 500 MG CHEW U/D PO ONE (03:30)
[2020-05-27 04:00] VITALS: BP 160/89
[2020-05-27 06:29] LABS: HEMATOCRIT 33.3 % (36.0-47.0); HEMOGLOBIN 10.4 g/dl (12.0-15.5); MEAN CORPUSCULAR HEMOGLOBIN 26.9 pg (27.0-33.0); MEAN CORPUSCULAR HGB CONC 31.2 g/dl (32.0-36.5); PLATELET COUNT, AUTOMATED 270 10^3/uL (150-450); RED BLOOD COUNT 3.87 10^6/uL (4.00-5.40); WHITE BLOOD COUNT 8.4 10^3/uL (4.0-10.0)
[2020-05-27 06:52] LABS: BLOOD UREA NITROGEN 45 MG/DL (7-18); CALCIUM LEVEL 9.2 MG/DL (8.8-10.2); CARBON DIOXIDE LEVEL 28 MEQ/L (21-32); CHLORIDE LEVEL 103 MEQ/L (98-107); CREATININE FOR GFR 0.96 MG/DL (0.55-1.30); GLOMERULAR FILTRATION RATE > 60.0 (>39); GLUCOSE, FASTING 173 MG/DL (70-100); MAGNESIUM LEVEL 1.8 MG/DL (1.8-2.4); POTASSIUM SERUM 3.7 MEQ/L (3.5-5.1); SODIUM LEVEL 138 MEQ/L (136-145)
[2020-05-27] MEDS: TIOTROPIUM INHALER/CAPSULE (SPIRIVA) INH SCH (07:37)
[2020-05-27 07:44] VITALS: BP 143/87
[2020-05-27] MEDS: FOLIC ACID 1 MG TAB PO SCH (09:19)
[2020-05-27] MEDS: HumaLOG INSULIN (NovoLOG) PER UNIT SC SCH ×4 (09:19→20:04)
[2020-05-27] MEDS: MAGNESIUM OXIDE 400MG TAB (MAG-OX) PO SCH ×2 (09:20→20:27)
[2020-05-27] MEDS: CARVedilol 12.5 MG TAB PO SCH ×2 (09:20→20:28)
[2020-05-27] MEDS: allopurinoL 300 MG TAB PO SCH (09:20)
[2020-05-27] MEDS: APIXABAN 5 MG TAB (ELIQUIS) PO SCH ×2 (09:20→20:27)
[2020-05-27] MEDS: OMEPRAZOLE 20 MG CAP PO SCH (09:20)
[2020-05-27] MEDS ORDERED: MAG SULF 1GM/100ML (MAG RUN) 1 GM in IV 1 EA IV ONE (10:15)
--- NOTE | 2020-05-27 11:33 | IPNPDOC ---
Text Note Date of Service The patient was seen on 05/27/20. NOTE Subjective: -Did not sleep well last night, feels tired today, not ready for discharge. -No acute events Objective: VITAL SIGNS: see below GENERAL APPEARANCE: NAD HEENT: NCAT, PERRLA, EOMI, MMM, anicteric. CARDIOVASCULAR: RRR, no noted murmurs LUNGS:Bibasilar posterior lung altman crackles, no wheezing, no rhonchi ABDOMEN: obese, soft, normoactive bowel sounds, NTND EXTREMITIES: Improving now 1+ LLE edema, pitting, trace in RLE. WWP, good 2+ DP pulses bilaterally NEUROLOGICAL: CN2-12 intact, moving all extremities, clear speech PSYCHIATRIC: AOx3 LABORATORY DATA: K 3.7 Mag 1.6 (repleted) Cr 0.96 CTA chest: FINDINGS: Pulmonary arteries: There is enlargement of the central pulmonary arteries, findings which can be associated with pulmonary arterial hypertension which should be correlated clinically. There are no pulmonary emboli. Aorta: Atherosclerotic changes in the thoracic aorta. There is no aortic dissection or aneurysm. Lungs: Infiltrate demonstrated in the right middle and right lower lobes. Findings compatible with postobstructive infiltrate and right perihilar neoplasm. Findings have progressed in comparison to the prior study of 09/08/2019 although grossly stable in comparison to the exam of 04/20/2020. Pleural spaces: Small right pleural effusion. Heart: Cardiomegaly. Dilated right atrium/right ventricle. Lymph nodes: Unremarkable. No enlarged lymph nodes. Bones/joints: The spine demonstrates mild degenerative changes. Osteoporosis. Soft tissues: Cirrhotic morphology in the liver. Otherwise unremarkable. IMPRESSION: 1. Small right pleural effusion. 2. Infiltrate demonstrated in the right middle and right lower lobes. Findings compatible with postobstructive infiltrate and right perihilar neoplasm. Findings have progressed in comparison to the prior study of 09/08/2019 although grossly stable in comparison to the exam of 04/20/2020. 3. There is no aortic dissection or aneurysm. 4. Cardiomegaly with dilated right heart suggestive of right heart failure. 5. There is enlargement of the central pulmonary arteries, findings which can be associated with pulmonary arterial hypertension which should be correlated clinically. 6. There are no pulmonary emboli. LLE doppler venous US: The deep veins are anechoic and fully compressible from the groin to the popliteal fossa in the left lower extremity. Color flow imaging is homogeneous. Spectral Doppler interrogation demonstrates intact respiratory variation in flow and normal manual augmentation of flow. There is no evidence of deep vein thrombosis. IMPRESSION: Negative left lower extremity duplex venous ultrasound. No evidence of deep vein thrombosis. CXR: The technique utilized in obtaining the radiograph has magnified the cardiac silhouette and accentuated the interstitial markings. The heart is enlarged and no new abnormal opacities have developed. There is no change in the osseous structures. Accentuated by technique. The tip of the MediPort device is unchanged remaining in the superior vena cava. Patchy right lower lobe opacities are essentially unchanged when the technical differences between the examinations are taken into consideration. There is no change in the appearance of the single chamber bipolar pacemaker device. IMPRESSION: Stable appearing chronic changes as described above MICROBIOLOGY: Please see below. ASSESSMENT: 74 yo W with a history of recently diagnosed stage III NSCLC s/p radiation recently started on dervalumab Q2W, with a history of AFib on eliquis, CHF unclear subtype on lasix 20 BID, s/p PPM, hypothyroidism, HTN, HLD, asthma, smoker until recently, GERD and PVD with known bilateral carotid artherosclerosis, NIDDM who presented to the ED for worsening SOB and LLE swelling with decreased exercise tolerance and found to have an elevate BNP with chandler volume overload on examination and now admitted for CHF exacerbation vs. unlikely immunotherapy pneumonitis. CHF exacerbation: -f/u TTE -CTA was without a PE and showed known stable infiltrate in the right middle and right lower lobes compatible with postobstructive infiltrate and right perihilar neoplasm -lasix 40 IV BID, for goal net negative 2L/24h -hold home PO diuretic -continue coreg, holding lisinopril during aggressive diuresis and contrast use -strict I/Os, daily weights, 2g sodium in consistent carb diet and 1.8L/24h fluid restriction Stage III NSCLC: -follows with Dr. Castellon, recently started on durvalumab a checkpoint inhibitor that target PD-1/L interaction, which can cause immunotherapy mediated pneumonitis so will f/u chest CT -has a history of R pleural effusion that was drained per Dr. Franks in the out patient setting in 03/2020. Will f/u CT -CTA was without a PE and showed known stable infiltrate in the right middle and right lower lobes compatible with postobstructive infiltrate and right perihilar neoplasm Gout? vs onc prescribed -continue allopurinol 300 QD History of Afib: -continue eliquis 5 BID GERD: -continue omeprazole HTN: -holding lisinopril while aggressively diuresing. Will monitor and treat as needed. Continue coreg HLD: -continue home simvastatin Asthma: -cont Combivent Anxiety: -continue PRN xanax VS,Fishbone, I+O VS, Fishbone, I+O Laboratory Tests 05/27/20 05:21 Vital Signs Date Time Temp Pulse Resp B/P (MAP) Pulse Ox O2 Delivery O2 Flow Rate FiO2 05/27/20 09:20 60 143/70 05/27/20 07:44 97.0 18 94 Room Air 05/26/20 08:00 2.0 I&O- Last 24 Hours up to 6 AM 05/27/20 06:00 Intake Total 1380 ml Output Total 1475 ml Balance -95 ml FADY GRANADOS MD May 27, 2020 11:33
[2020-05-27 11:56] VITALS: BP 128/67
[2020-05-27 15:19] VITALS: BP 117/58
[2020-05-27 20:00] VITALS: BP 131/60
[2020-05-27] MEDS: SIMVASTATIN 40 MG TAB PO SCH (20:27)
[2020-05-28] VITALS: BP 122/59
[2020-05-28] MEDS: ACETAMINOPHEN TAB 650MG DOSE (2X325MG) PO PRN (00:05)
[2020-05-28 04:00] VITALS: BP 118/57
[2020-05-28 05:59] LABS: HEMATOCRIT 36.7 % (36.0-47.0); HEMOGLOBIN 11.2 g/dl (12.0-15.5); MEAN CORPUSCULAR HEMOGLOBIN 26.5 pg (27.0-33.0); MEAN CORPUSCULAR HGB CONC 30.5 g/dl (32.0-36.5); MEAN CORPUSCULAR VOLUME 86.8 fl (80.0-96.0); PLATELET COUNT, AUTOMATED 294 10^3/uL (150-450); RED BLOOD COUNT 4.23 10^6/uL (4.00-5.40); WHITE BLOOD COUNT 10.5 10^3/uL (4.0-10.0)
[2020-05-28 06:19] LABS: CALCIUM LEVEL 9.2 MG/DL (8.8-10.2); CREATININE FOR GFR 1.16 MG/DL (0.55-1.30); GLOMERULAR FILTRATION RATE 48.6 (>39); MAGNESIUM LEVEL 1.7 MG/DL (1.8-2.4); POTASSIUM SERUM 3.5 MEQ/L (3.5-5.1)
[2020-05-28] MEDS: TIOTROPIUM INHALER/CAPSULE (SPIRIVA) INH SCH (07:58)
[2020-05-28 08:00] VITALS: BP 123/55
[2020-05-28] MEDS: HumaLOG INSULIN (NovoLOG) PER UNIT SC SCH ×2 (08:43→12:00)
[2020-05-28] MEDS: FUROSEMIDE 40MG/4ML VIAL (J1940) IV SCH ×2 (08:44)
[2020-05-28] MEDS: FOLIC ACID 1 MG TAB PO SCH (08:44)
[2020-05-28] MEDS: allopurinoL 300 MG TAB PO SCH (08:44)
[2020-05-28 08:45] VITALS: BP 123/55
[2020-05-28] MEDS: MAGNESIUM OXIDE 400MG TAB (MAG-OX) PO SCH (08:45)
[2020-05-28] MEDS: APIXABAN 5 MG TAB (ELIQUIS) PO SCH (08:45)
[2020-05-28] MEDS: CARVedilol 12.5 MG TAB PO SCH (08:45)
[2020-05-28] MEDS: OMEPRAZOLE 20 MG CAP PO SCH (08:45)
[2020-05-28] MEDS ORDERED: FURO80TA2 PO (10:12)
--- NOTE | 2020-05-28 10:18 | DS.PDOC ---
Discharge Summary General Date of Admission May 25, 2020 at 18:29 Date of Discharge 05/28/2020 Attending Physician: FADY GRANADOS MD Discharge Summary PROCEDURES PERFORMED DURING STAY: None ADMITTING DIAGNOSES: SOB DISCHARGE DIAGNOSES: Acute on chronic HFpEF Recently diagnosed stage III NSCLC s/p radiation recently started on darvalumab Q2W History of AFib on eliquis s/p PPM hypothyroidism HTN HLD asthma GERD PVD with known bilateral carotid artherosclerosis NIDDM COMPLICATIONS/CHIEF COMPLAINT: SOB. HISTORY OF PRESENT ILLNESS: 74 yo W with a history of recently diagnosed stage III NSCLC s/p radiation recently started on dervalumab Q2W, with a history of AFib on eliquis, CHF unclear subtype on lasix 20 BID, s/p PPM, hypothyroidism, HTN, HLD, asthma, smoker until recently, GERD and PVD with known bilateral carotid artherosclerosis, NIDDM who presented to the ED for worsening SOB and LLE swelling with decreased exercise tolerance. She denied any recent worsening cough, sputum, hemoptysis, fever, chills, nausea, emesis, chest pain, palpitations, abdominal pain or constipation. HOSPITAL COURSE: In the ED, she was normotensive, afebrile and breathing comfortably on room air. Workup was notable for pproBNP of 5700, non-ischemic EKG, LLE doppler venous US without a DVT, CXR with chronic stable changes, Hgb 9.5, WBC 7.3, platelets 210, Na 141, K 3.8, BUN 48 and Cr 1.15. She also had a UA that was grossly positive with 3+ bacteria. She had a CTA chest that was negative for PE or PNA and had some vascular congestion. On my exam, she had gross crackles bilaterally in posterior lung altman and has L>R lower extremities pitting edema c/f CHF exacerbation and I admitted her for most CHF exacerbation vs. unlikely immunotherapy pneumonitis. Her SOB, exercise tolerance and edema improved with IV diuresis and she declined TTE as she recently had an outpatient TTE. She is now being discharged home with PCP, cardiology and oncology follow up within the next 1 week and lasix 80mg once daily. DISCHARGE MEDICATIONS: Please see below. ALLERGIES: Please see below. PHYSICAL EXAMINATION ON DISCHARGE: VITAL SIGNS: Please see below. GENERAL APPEARANCE: NAD HEENT: NCAT, PERRLA, EOMI, MMM, anicteric. CARDIOVASCULAR: RRR, no noted murmurs LUNGS: Bibasilar posterior lung altman crackles, much improved from prior, no wheezing, no rhonchi ABDOMEN: obese, soft, normoactive bowel sounds, NTND EXTREMITIES: Improving 1+ LLE edema, pitting, trace in RLE. WWP, good 2+ DP pulses bilaterally NEUROLOGICAL: CN2-12 intact, moving all extremities, clear speech PSYCHIATRIC: AOx3 LABORATORY DATA: see below IMAGING: CTA chest: FINDINGS: Pulmonary arteries: There is enlargement of the central pulmonary arteries, findings which can be associated with pulmonary arterial hypertension which should be correlated clinically. There are no pulmonary emboli. Aorta: Atherosclerotic changes in the thoracic aorta. There is no aortic dissection or aneurysm. Lungs: Infiltrate demonstrated in the right middle and right lower lobes. Findings compatible with postobstructive infiltrate and right perihilar neoplasm. Findings have progressed in comparison to the prior study of 09/08/2019 although grossly stable in comparison to the exam of 04/20/2020. Pleural spaces: Small right pleural effusion. Heart: Cardiomegaly. Dilated right atrium/right ventricle. Lymph nodes: Unremarkable. No enlarged lymph nodes. Bones/joints: The spine demonstrates mild degenerative changes. Osteoporosis. Soft tissues: Cirrhotic morphology in the liver. Otherwise unremarkable. IMPRESSION: 1. Small right pleural effusion. 2. Infiltrate demonstrated in the right middle and right lower lobes. Findings compatible with postobstructive infiltrate and right perihilar neoplasm. Findings have progressed in comparison to the prior study of 09/08/2019 although grossly stable in comparison to the exam of 04/20/2020. 3. There is no aortic dissection or aneurysm. 4. Cardiomegaly with dilated right heart suggestive of right heart failure. 5. There is enlargement of the central pulmonary arteries, findings which can be associated with pulmonary arterial hypertension which should be correlated clinically. 6. There are no pulmonary emboli. LLE doppler venous US: The deep veins are anechoic and fully compressible from the groin to the popliteal fossa in the left lower extremity. Color flow imaging is homogeneous. Spectral Doppler interrogation demonstrates intact respiratory variation in flow and normal manual augmentation of flow. There is no evidence of deep vein thrombosis. IMPRESSION: Negative left lower extremity duplex venous ultrasound. No evidence of deep vein thrombosis. CXR: The technique utilized in obtaining the radiograph has magnified the cardiac silhouette and accentuated the interstitial markings. The heart is enlarged and no new abnormal opacities have developed. There is no change in the osseous structures. Accentuated by technique. The tip of the MediPort device is unchanged remaining in the superior vena cava. Patchy right lower lobe opacities are essentially unchanged when the technical differences between the examinations are taken into consideration. There is no change in the appearance of the single chamber bipolar pacemaker device. IMPRESSION: Stable appearing chronic changes as described above LABORATORY DATA: Please see below. PROGNOSIS: Good ACTIVITY: As tolerated DIET: 2g sodium DISCHARGE PLAN: Home w/ PCP and onc follow up DISPOSITION: Home DISCHARGE INSTRUCTIONS: Home w/ PCP and cardiology within the next 7d Onc follow up per outpatient schedule ITEMS TO FOLLOWUP ON ON OUTPATIENT: CHF exacerbation DISCHARGE CONDITION: Stable TIME SPENT ON DISCHARGE: 45 minutes. Vital Signs/I&Os Vital Signs Date Time Temp Pulse Resp B/P (MAP) Pulse Ox O2 Delivery O2 Flow Rate FiO2 05/27/20 09:20 60 143/70 05/27/20 07:44 97.0 18 94 Room Air 05/26/20 08:00 2.0 I&O- Last 24 Hours up to 6 AM 05/27/20 06:00 Intake Total 1380 ml Output Total 1475 ml Balance -95 ml Laboratory Data Labs 24H Laboratory Tests 2 05/26/20 12:04: Bedside Glucose (Misc Panel) 220H 05/26/20 17:30: Bedside Glucose (Misc Panel) 163H 05/26/20 20:26: Bedside Glucose (Misc Panel) 222H 05/27/20 05:21: Nucleated Red Blood Cells % (auto) 0.0, Anion Gap 7L, Glomerular Filtration Rate > 60.0, Calcium Level 9.2, Magnesium Level 1.8 CBC/BMP Laboratory Tests 05/27/20 05:21 FSBS Laboratory Tests Test 05/26/20 12:04 05/26/20 17:30 05/26/20 20:26 Range/Units Bedside Glucose (Misc Panel) 220 163 222 83-110 MG/DL Microbiology Microbiology 05/25/20 Respiratory Virus Panel (PCR) (MARTIN) - Final, Complete 05/25/20 Urine Culture - Final, Complete Klebsiella Pneumoniae Discharge Medications Scheduled Allopurinol (Zyloprim) 300 Mg Tablet, 300 MG PO DAILY, (Reported) Apixaban (Eliquis) 5 Mg Tab, 5 MG PO BID, (Reported) Carvedilol (Carvedilol) 12.5 Mg Tab, 12.5 MG PO BID, (Reported) Folic Acid (Folic Acid) 1 Mg Tablet, 1 TAB PO DAILY Furosemide (Furosemide) 20 Mg Tablet, 20 MG PO BID, (Reported) Furosemide (Furosemide) 80 Mg Tablet, 80 MG PO DAILY Lidocaine/Prilocaine (Lidocaine-Prilocaine Cream) 2.5%/2.5% Cream..g., 1 DOSE TOP ASDIRECTED Apply dime size to port area. Do not rub in, cover with saran wrap to protect clothing. Lisinopril (Lisinopril) 5 Mg Tab, 5 MG PO QHS, (Reported) Magnesium Chloride (Slow-Mag) 71.5 Mg Tablet.dr, 1 TAB PO BID, (Reported) Metformin HCl (Metformin HCl) 850 Mg Tab, 850 MG PO DAILY, (Reported) Omeprazole (Omeprazole) 20 Mg Capsule.dr, 20 MG PO DAILY, (Reported) Simvastatin (Simvastatin) 40 Mg Tab, 40 MG PO QHS, (Reported) Umeclidinium [place] (Incruse Ellipta) 62.5 Mcg Blst.w.dev, 1 PUFF INH DAILY, (Reported) Scheduled PRN Alprazolam (Alprazolam) 1 Mg Tab, 1 MG PO QID PRN for ANXIETY, (Reported) Magic Mouthwash (First-Mouthwash Blm) 1 Ea Susp, 15 ML PO QIDP PRN for Esophagi tis (Diphenhydramine/maalox/lidocaine 1:1:1) May compound if kit unavailable. Take with straw Allergies Coded Allergies: Sulfa (Sulfonamide Antibiotics) (Unverified Allergy, Intermediate, RASH, 07/06/19) ciprofloxacin (Unverified Allergy, Intermediate, HIVES, 07/06/19) codeine (Verified Allergy, Intermediate, RASH, 07/06/19) diphenhydramine (Verified Allergy, Unknown, CAUSES ITCHING AND ANXIETY, 10/07/19) FADY GRANADOS MD May 27, 2020 10:06
== END 2020-05-28 14:09 | disposition home health service (06) | DRG 292 ==
LOC: M ED 14:27 → M ED INP 18:29 → ENRESERV 20:14 → M PCU 21:51
PROVIDERS: ADMIT Internal Medicine; ATTEND Internal Medicine
DX: I11.0 Hypertensive heart disease with heart failure (principal); C34.01 Malignant neoplasm of right main bronchus; I50.33 Acute on chronic diastolic (congestive) heart failure; I48.91 Unspecified atrial fibrillation; E03.9 Hypothyroidism, unspecified; E78.5 Hyperlipidemia, unspecified; M10.9 Gout, unspecified; J45.909 Unspecified asthma, uncomplicated; K21.9 Gastro-esophageal reflux disease without esophagitis; I65.23 Occlusion and stenosis of bilateral carotid arteries; Z66 Do not resuscitate; F41.9 Anxiety disorder, unspecified; E11.51 Type 2 diabetes mellitus with diabetic peripheral angiopathy without gangrene; Z87.891 Personal history of nicotine dependence; Z82.3 Family history of stroke; Z79.01 Long term (current) use of anticoagulants; Z79.84 Long term (current) use of oral hypoglycemic drugs; Z79.899 Other long term (current) drug therapy; Z88.1 Allergy status to other antibiotic agents; Z88.2 Allergy status to sulfonamides; Z88.8 Allergy status to other drugs, medicaments and biological substances; Z88.5 Allergy status to narcotic agent; Z95.0 Presence of cardiac pacemaker

== ENCOUNTER 2020-05-30 22:54 | Emergency (ER) | payer MEDICARE ==
[~2020-05-30] VITALS: Ht 165.1 cm; Wt 80.8 kg
[~2020-05-30 22:54] MED LIST changes: +FURO80TA2 PO; +INCR1INH INH
[2020-05-30] MEDS ORDERED: LASI20TA3 PO (23:03)
[2020-05-31] MEDS ORDERED: ISOVUE-370 76% 100ML VIAL As Ordered ONE (01:13)
[2020-05-31 01:14] LABS: BASO % 0.4 % (0.0-1.0); EOS # 0.6 10^3/uL (0.0-0.5); EOS % 6.6 % (0.0-3.0); HEMATOCRIT 35.4 % (36.0-47.0); HEMOGLOBIN 10.9 g/dl (12.0-15.5); LYMPH # 0.9 10^3/uL (1.5-5.0); LYMPH % 10.8 % (24.0-44.0); MEAN CORPUSCULAR HEMOGLOBIN 26.8 pg (27.0-33.0); MEAN CORPUSCULAR HGB CONC 30.8 g/dl (32.0-36.5); MONO # 0.6 10^3/uL (0.0-0.8); MONO % 6.6 % (2.0-8.0); NEUTROPHILS # 6.3 10^3/uL (1.5-8.5); NEUTROPHILS % 75.4 % (36.0-66.0); PLATELET COUNT, AUTOMATED 243 10^3/uL (150-450); RED BLOOD COUNT 4.07 10^6/uL (4.00-5.40); WHITE BLOOD COUNT 8.4 10^3/uL (4.0-10.0)
[2020-05-31 01:40] LABS: CK-MB VALUE MASS 1.6 NG/ML (<3.6); MB/CK RELATIVE INDEX 1.62 (< OR =4); TROPONIN I 0.02 NG/ML (< 0.10)
[2020-05-31 02:37] LABS: ALBUMIN 3.7 GM/DL (3.2-5.2); BILIRUBIN,DIRECT 0.5 MG/DL (0.0-0.2); BILIRUBIN,TOTAL 1.2 MG/DL (0.2-1.0); CREATININE FOR GFR 1.1 MG/DL (0.55-1.30); GLOMERULAR FILTRATION RATE 51.7 (>39); POTASSIUM SERUM 3.7 MEQ/L (3.5-5.1)
--- NOTE | 2020-05-31 02:45 | REPVR ---
PROCEDURE INFORMATION: Exam: CT Abdomen And Pelvis With Contrast Exam date and time: 05/31/2020 1:08 AM Age: 74 years old Clinical indication: Abdominal pain; Periumbilical; Additional info: Umbilical pain, hernia TECHNIQUE: Imaging protocol: Computed tomography of the abdomen and pelvis with contrast. Radiation optimization: All CT scans at this facility use at least one of these dose optimization techniques: automated exposure control; mA and/or kV adjustment per patient size (includes targeted exams where dose is matched to clinical indication); or iterative reconstruction. Contrast material: ISO; Contrast volume: 100 ml; Contrast route: INTRAVENOUS (IV); COMPARISON: PT PET/CT Skull/mid thigh 06/14/2019 12:02 PM FINDINGS: Limitations: Examination is limited by motion artifact. Tubes, catheters and devices: Pacemaker leads in the right ventricle of the heart. Lungs: Linear atelectasis in the left lower lobe. Masslike density in the right middle lobe which is not fully imaged. Mild soft tissue thickening in the right hilar region. Pleural spaces: Moderate right pleural effusion. Heart: Moderate cardiomegaly. Pericardial effusion measuring up to 1.6 cm. Coronary arteries: Moderate coronary artery calcification. Liver: Circumscribed hypodense lesion in the dome of the liver measuring 10 mm. Gallbladder and bile ducts: Normal. No calcified stones. No ductal dilation. Pancreas: Normal. No ductal dilation. Spleen: Normal. No splenomegaly. Adrenal glands: Normal. No mass. Kidneys and ureters: Benign-appearing cyst in the upper pole of the left kidney measuring 1.6 cm. No hydronephrosis. Stomach and bowel: Colonic diverticulosis without diverticulitis. Moderate stool in the colon. No abnormal bowel dilatation. No abnormal bowel wall thickening. Appendix: Appendix is normal. Intraperitoneal space: Unremarkable. No free air. No significant fluid collection. Vasculature: Severe atherosclerotic disease. No aortic aneurysm. Lymph nodes: Unremarkable. No enlarged lymph nodes. Urinary bladder: Unremarkable as visualized. Reproductive: Uterus is normal. Bones/joints: No acute fracture. Mild degenerative changes of the hips bilaterally. Moderate degenerative spine. Soft tissues: Moderate umbilical hernia containing small fluid. Neck of the hernia measures 1.8 cm in diameter. IMPRESSION: 1. Moderate umbilical hernia containing small fluid. Correlate clinically for possible strangulated hernia. 2. Benign-appearing cyst in the upper pole of the kidney. No follow-up is necessary. 3. Masslike density in the right middle lobe which is not fully imaged. Correlate with history. 4. Circumscribed hypodense lesion in the dome of the liver. Consistent with cyst. No follow-up is necessary. 5. Moderate right pleural effusion. 6. Pericardial effusion. COMMENTS: Consistent with the [employer]'s Incidental Findings Committee white paper (J Am Cipriano Radiol 2018): Any incidental renal lesion less than 1 cm or classified as too small to characterize, or any incidental cystic renal lesion characterized as simple-appearing, is likely benign. No follow-up imaging is recommended for these lesions per consensus recommendations based on imaging criteria. Electronically signed by: Gogo Simmons On 05/31/2020 02:45:11 AM
[2020-05-31 04:01] VITALS: BP 179/80
--- NOTE | 2020-05-31 18:12 | ECGEPIP ---
[facility] - ED Test Date: 2020-05-31 Pat Name: MUKESH GUERRERO Department: Room: - Gender: Female [employer] Officer: mariana : 1945 Requested By: DEVIN Pride Order Number: [id number] Reading MD: Sarah Edwards Measurements Intervals [place] Rate: 62 P: SD: QRS: 122 QRSD: 90 T: 190 QT: 462 QTc: 468 Interpretive Statements Undetermined rhythm Right axis deviation Possible Right ventricular hypertrophy ST & T wave abnormality, consider inferior ischemia ST & T wave abnormality, consider anterolateral ischemia Electronically Signed on 05-31-2020 18:11:58 EDT by Sarah Edwards
--- NOTE | 2020-06-01 18:02 | ECGEPIP ---
[facility] - ED Test Date: 2020-05-31 Pat Name: MUKESH GUERRERO Department: Room: - Gender: Female Vp [employer] Affairs: : 1945 Requested By: ERIC Pride Order Number: [id number] Reading MD: Eric Agarwal Measurements Intervals [place] Rate: 70 P: NM: QRS: 124 QRSD: 98 T: 185 QT: 456 QTc: 492 Interpretive Statements Atrial fibrillation with occasional ventricular-paced complexes Prolonged QTc interval Nonspecific ST-T wave abnormalities Similar to tracing done 03-05-16 Unable to interpret v5, previous tracing done 05-25-20 was v-paced Electronically Signed on 06-01-2020 18:02:07 EDT by Eric Agarwal
--- NOTE | 2020-06-02 10:09 | ED PDOC ---
Post-Departure Follow-Up radiology report faxed to Sarah Medrano MD Jun 02, 2020 10:08
[2020-06-04] MEDS ORDERED: LEVO50TA5 PO (11:17)
== END 2020-05-31 04:13 | disposition home health service (06) ==
LOC: M ED 22:54
DX: K42.9 Umbilical hernia without obstruction or gangrene (principal); I48.91 Unspecified atrial fibrillation; I11.0 Hypertensive heart disease with heart failure; J45.909 Unspecified asthma, uncomplicated; K21.9 Gastro-esophageal reflux disease without esophagitis; E78.5 Hyperlipidemia, unspecified; Z87.891 Personal history of nicotine dependence; Z88.1 Allergy status to other antibiotic agents; Z88.2 Allergy status to sulfonamides; Z88.6 Allergy status to analgesic agent; Z88.8 Allergy status to other drugs, medicaments and biological substances; Z95.0 Presence of cardiac pacemaker
CPT/HCPCS: 36415; 74177; 80048; 80076; 81001; 82550; 82553; 83605; 83690; 84484; 85025; 93005; 99284; Q9967

== ENCOUNTER 2020-06-17 09:15 | Emergency (ER) | payer MEDICARE ==
[~2020-06-17] VITALS: Ht 165.1 cm; Wt 77.7 kg
[~2020-06-17 09:15] MED LIST changes: +LASI20TA3 PO; +LIDO1CRE42 TOP; -LIDO2.5C15 TOP
[2020-06-17] MEDS ORDERED: NS 1,000 ML IV SCH (09:45)
[2020-06-17] MEDS ORDERED: ALBU8.5H (10:02)
[2020-06-17] MEDS ORDERED: FURO40TA2 PO (10:02)
[2020-06-17 10:05] LABS: BASO % 0.3 % (0.0-1.0); EOS # 0.5 10^3/uL (0.0-0.5); EOS % 5.7 % (0.0-3.0); HEMATOCRIT 34.7 % (36.0-47.0); HEMOGLOBIN 11.1 g/dl (12.0-15.5); LYMPH # 0.9 10^3/uL (1.5-5.0); LYMPH % 10.7 % (24.0-44.0); MEAN CORPUSCULAR HEMOGLOBIN 27.5 pg (27.0-33.0); MEAN CORPUSCULAR VOLUME 86.1 fl (80.0-96.0); MONO # 0.6 10^3/uL (0.0-0.8); MONO % 7.2 % (2.0-8.0); NEUTROPHILS # 6.5 10^3/uL (1.5-8.5); NEUTROPHILS % 75.8 % (36.0-66.0); PLATELET COUNT, AUTOMATED 254 10^3/uL (150-450); RED BLOOD COUNT 4.03 10^6/uL (4.00-5.40); WHITE BLOOD COUNT 8.6 10^3/uL (4.0-10.0)
--- NOTE | 2020-06-17 10:09 | REP ---
INDICATION: palpitations. COMPARISON: 05/25/2020 also portable TECHNIQUE: The technique utilized in obtaining the radiograph has magnified the cardiac silhouette and attenuated the interstitial markings. FINDINGS: There is cardiomegaly accentuated by technique status quo. Chronic right lower lung field opacities are again noted. There is a single chamber bipolar pacemaker device which is unchanged. There is no change in appearance of the MediPort device. There is no significant change in appearance of the osseous structures. IMPRESSION: No significant change <Electronically signed by Donald Pappas > 06/17/20 100
[2020-06-17 10:18] LABS: INR 1.57; PROTHROMBIN TIME 19.1 SECONDS (12.5-14.3)
[2020-06-17 10:31] LABS: ALBUMIN 3.7 GM/DL (3.2-5.2); BILIRUBIN,DIRECT 0.5 MG/DL (0.0-0.2); BILIRUBIN,TOTAL 1.3 MG/DL (0.2-1.0); TOTAL PROTEIN 6.8 GM/DL (6.4-8.2)
--- NOTE | 2020-06-17 10:55 | ECGEPIP ---
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
[2020-06-17 11:09] LABS: CALCIUM LEVEL 10.2 MG/DL (8.8-10.2); CK-MB VALUE MASS 1.5 NG/ML (<3.6); CREATININE FOR GFR 1.06 MG/DL (0.55-1.30); GLOMERULAR FILTRATION RATE 53.9 (>39); MAGNESIUM LEVEL 1.4 MG/DL (1.8-2.4); MB/CK RELATIVE INDEX 1.9 (< OR =4); POTASSIUM SERUM 3.2 MEQ/L (3.5-5.1); TROPONIN I 0.02 NG/ML (< 0.10)
[2020-06-17] MEDS ORDERED: ONDANSETRON 4MG/2ML VIAL IV ONE (11:15)
[2020-06-17] MEDS ORDERED: POTASSIUM CHLORIDE 10 MEQ SR TABLET PO ONE (11:15)
[2020-06-17] MEDS ORDERED: ISOVUE-370 76% 100ML VIAL As Ordered ONE (11:17)
[2020-06-17] MEDS ORDERED: MAG SULF 1GM/100ML (MAG RUN) 1 GM in IV 1 EA IV ONE (11:20)
--- NOTE | 2020-06-17 11:49 | REP ---
INDICATION: abd pain. COMPARISON: 05/31/2020 the latest prior TECHNIQUE: Standard helical technique after the intravenous administration of 100 cc Isovue 370. No oral bowel preparatory contrast was administered prior to the exam. FINDINGS: The lung bases are centrally unchanged. There is right pleural effusion with chronic right basilar opacities. There is a slight pericardial effusion which is unchanged The liver, gallbladder, spleen, pancreas, adrenal glands, and kidneys are unchanged. There is a Bosniak class 2 stable left renal cyst and subtle stable right-sided hydronephrosis. There is no significant change in appearance of the bowel loops or the mesenteries. There is no free fluid or free air. There is no change in the abdominal aorta or para aortic regions. There is an unchanged ventral hernia. There is no change in appearance of the osseous structures. Age-related changes are noted status quo. IMPRESSION: There has been no significant change compared to the prior exam with findings as described above. <Electronically signed by Donald Pappas > 06/17/20 [id number]
[2020-06-17] MEDS ORDERED: ONDA4TAB6 PO (14:22)
[2020-06-17] MEDS ORDERED: ROLLMIS8 XX (14:38)
[2020-06-17] MEDS ORDERED: ONDANSETRON 4 MG ORAL DISINTEGRATING TAB PO ONE (14:40)
[2020-06-17 14:52] VITALS: BP 144/95
[2020-06-18] MEDS ORDERED: K-TA10TA2 PO (10:59)
== END 2020-06-17 15:01 | disposition home or self-care (01) ==
LOC: M ED 09:15
DX: E87.6 Hypokalemia (principal); R11.2 Nausea with vomiting, unspecified; R19.7 Diarrhea, unspecified; E86.0 Dehydration; I13.0 Hypertensive heart and chronic kidney disease with heart failure and stage 1 through stage 4 chronic kidney disease, or unspecified chronic kidney disease; I48.91 Unspecified atrial fibrillation; C34.01 Malignant neoplasm of right main bronchus; C77.9 Secondary and unspecified malignant neoplasm of lymph node, unspecified; E11.9 Type 2 diabetes mellitus without complications; I25.10 Atherosclerotic heart disease of native coronary artery without angina pectoris; E78.5 Hyperlipidemia, unspecified; K21.9 Gastro-esophageal reflux disease without esophagitis; E03.9 Hypothyroidism, unspecified; J45.909 Unspecified asthma, uncomplicated; Z87.891 Personal history of nicotine dependence; Z88.2 Allergy status to sulfonamides; Z88.1 Allergy status to other antibiotic agents; Z88.6 Allergy status to analgesic agent; Z79.899 Other long term (current) drug therapy; Z79.01 Long term (current) use of anticoagulants
CPT/HCPCS: 71045; 74177; 80048; 80076; 82550; 82553; 83690; 83735; 84484; 85025; 85610; 93005; 93041; 96361; 96365; 96366; 96375; 99285; J2405; J3475; Q0162; Q9967

== ENCOUNTER → 2020-08-10 | Outpatient (REF) | payer MEDICARE ==
[~2020-08-10] MED LIST changes: +ALBU8.5H INH; +FLUTISP NARES; +FURO40TA2 PO; +K-TA10TA2 PO; +OMEP40CA4 PO; -OMEP40CA97 PO; +ONDA4TAB6 PO; +POTA10TA17 PO; +ROLLMIS8 XX; +ZOLP5TAB PO
[2020-08-10 12:35] LABS: CALCIUM LEVEL 9.6 MG/DL (8.8-10.2); CREATININE FOR GFR 2.47 MG/DL (0.55-1.30); GLOMERULAR FILTRATION RATE 20.3 (>39); MAGNESIUM LEVEL 1.9 MG/DL (1.8-2.4); POTASSIUM SERUM 5.1 MEQ/L (3.5-5.1)
== END ==
LOC: M SHH 11:40
PROVIDERS: ATTEND Physician Assistant
DX: I50.32 Chronic diastolic (congestive) heart failure (principal); E83.42 Hypomagnesemia

== ENCOUNTER 2020-08-14 12:05 | Inpatient (IN) | payer MEDICARE ==
[~2020-08-14] VITALS: Ht 165.1 cm; Wt 75.8 kg
[~2020-08-14 12:05] MED LIST changes: -FLUTISP NARES; -POTA10TA17 PO; -ZOLP5TAB PO
[2020-08-14] MEDS ORDERED: NS 1,000 ML IV ONE (12:45)
[2020-08-14 13:09] LABS: BASO % 0.4 % (0.0-1.0); EOS # 1.2 10^3/uL (0.0-0.5); EOS % 17.3 % (0.0-3.0); HEMATOCRIT 34.5 % (36.0-47.0); LYMPH # 0.9 10^3/uL (1.5-5.0); LYMPH % 12.6 % (24.0-44.0); MEAN CORPUSCULAR HEMOGLOBIN 27.3 pg (27.0-33.0); MEAN CORPUSCULAR HGB CONC 31.9 g/dl (32.0-36.5); MEAN CORPUSCULAR VOLUME 85.6 fl (80.0-96.0); MONO # 0.4 10^3/uL (0.0-0.8); MONO % 6.2 % (2.0-8.0); NEUTROPHILS # 4.5 10^3/uL (1.5-8.5); NEUTROPHILS % 63.2 % (36.0-66.0); PLATELET COUNT, AUTOMATED 207 10^3/uL (150-450); RED BLOOD COUNT 4.03 10^6/uL (4.00-5.40); WHITE BLOOD COUNT 7.2 10^3/uL (4.0-10.0)
--- NOTE | 2020-08-14 13:32 | REP ---
INDICATION: Abdominal Pain COMPARISON: 06/17/2020 as well as other prior exams. TECHNIQUE: PA/Lateral FINDINGS: Lungs: Chronic right lung opacities are stable. Heart: There is stable cardiomegaly. Mediastinum: The mediastinal silhouette is unchanged. Pleural angles: Unremarkable.. Bones and soft tissues: There are degenerative changes of the spine without compression deformity. Left pacemaker and right central venous catheter are unchanged. IMPRESSION: Stable exam. <Electronically signed by Stu Ng > 08/14/20 [id number]
[2020-08-14 13:40] LABS: ALBUMIN 3.7 GM/DL (3.2-5.2); BILIRUBIN,DIRECT 0.2 MG/DL (0.0-0.2); BILIRUBIN,TOTAL 0.9 MG/DL (0.2-1.0); CALCIUM LEVEL 9.5 MG/DL (8.8-10.2); CK-MB VALUE MASS 2.3 NG/ML (<3.6); CREATININE FOR GFR 2.6 MG/DL (0.55-1.30); GLOMERULAR FILTRATION RATE 19.2 (>39); MB/CK RELATIVE INDEX 1.07 (< OR =4); POTASSIUM SERUM 5.6 MEQ/L (3.5-5.1); TOTAL PROTEIN 6.9 GM/DL (6.4-8.2); TROPONIN I 0.03 NG/ML (< 0.10)
[2020-08-14 14:20] LABS: RSV AMPLIFICATION NEGATIVE (NEGATIVE)
[2020-08-14] MEDS ORDERED: FURO80TA2 PO ×2 (14:38)
[2020-08-14] MEDS ORDERED: FLUTISP NARES (14:38)
[2020-08-14] MEDS ORDERED: ZOLP5TAB PO (14:38)
[2020-08-14] MEDS ORDERED: POTA10TA17 PO (14:38)
[2020-08-14] MEDS ORDERED: FOLI1TAB11 PO (14:40)
[2020-08-14 14:45] LABS: INR 2.16; PROTHROMBIN TIME 24.6 SECONDS (12.5-14.3)
[2020-08-14] MEDS ORDERED: FLUTICASONE PROP 0.05% NASAL SPRAY 16 GM (FLONASE) NARES PRN (15:55)
[2020-08-14] MEDS ORDERED: ALPRAZolam 0.5 MG TAB PO PRN (15:55)
[2020-08-14] MEDS ORDERED: NS 1,000 ML IV SCH (15:55)
[2020-08-14] MEDS ORDERED: GLUCAGON INJ 1MG VIAL SC PRN (16:10)
[2020-08-14] MEDS ORDERED: IPRATROPIUM 0.5MG/ALBUTEROL 2.5MG INH SOL UD 3ML (DUONEB) NEB PRN (16:10)
[2020-08-14] MEDS ORDERED: GLUCOSE 4GM CHEW TABLET PO PRN (16:10)
[2020-08-14] MEDS ORDERED: DEXTROSE 50% 50 ML SYRINGE IV PRN (16:10)
--- NOTE | 2020-08-14 16:37 | HPE ---
HISTORY AND PHYSICAL DATE OF ADMISSION: 08/14/2020 TRIAGE LICENSED PRACTICAL NURSE: Dr. Davis PRIMARY CARE PHYSICIAN: Dr. Jeffrey Dumont HISTORY: Suzanne Naranjo is being admitted with acute kidney injury and hypotension. She has been on an augmented diuretic regimen for the last month through [facility]. She says she has become increasingly weak, dizzy, and lightheaded since then. She has had a couple near-syncope episodes. She presented to the emergency room in acute kidney injury with a creatinine of 2.6 (it was 1.1 on 07/16/2020) and hypotension with systolic blood pressure in the 70s. She has a history of recently diagnosed stage III [id number]-[id number] lung cancer, status post radiation therapy with immunomodulating agent with dervalumab every 2 weeks from [facility]. Has a history of congestive heart failure of unknown subtype with recent augmentation of furosemide from 20 mg twice a day to 80 mg every morning/40 mg evening, atrial fibrillation, anticoagulated with Eliquis, hypothyroidism, hypertensive heart disease, hyperlipidemia, asthma, long smoking history, gastroesophageal reflux disease (GERD), peripheral arterial disease with bilateral carotid arthrosclerosis, type 2 diabetes, HISTORY: 1. Bronchoscopy. 2. Thoracentesis for a pleural effusion. 3. Recent port placement. SOCIAL HISTORY: Smoked a pack or more a day until her cancer diagnosis. No alcohol or street drugs. FAMILY HISTORY: Diabetes, hypertension. REVIEW OF SYSTEMS: No hemoptysis. She has been dizzy, weak, and lightheaded. No chest pain or palpitations. No rectal bleeding, epistaxis, urinary bleeding. She was recently seen by Dr. Castellon of [facility] for her sbo-cwgtc-toni lung cancer. MEDICATIONS: - albuterol inhaler on as-needed basis - allopurinol 300 mg daily - Xanax 1 mg four times a day as needed for anxiety - Eliquis 5 mg twice a day - carvedilol 12.5 mg twice a day - fluticasone nasal spray daily - folic acid 1 mg daily - furosemide 80 mg in the morning, 40 mg in the evening - levothyroxine 50 mcg daily - lisinopril 2.5 mg daily - omeprazole 20 mg daily - potassium chloride 10 mEq daily - simvastatin 40 mg daily - Ambien 5 mg every night (apparently also takes both Ambien and Xanax) - metformin 850 mg every night - Incruse Ellipta 62.5 mg daily - magnesium chloride - Two SlowMag tablets twice a day ALLERGIES: SULFA, CIPRO, CODEINE, and BENADRYL. PHYSICAL EXAMINATION: Blood pressure (BP) 74/48, pulse 66, respiratory rate 20, 95% oxygen saturation GENERAL APPEARANCE: She looks surprisingly well considering her blood pressure. Chronically ill appearing. HEENT: Grossly unremarkable. Bilateral carotid bruits. LUNGS: Scattered rhonchi, all altman. HEART: Regular rate and rhythm. A 1/6 systolic ejection murmur. ABDOMEN: Soft, nontender. No masses. EXTREMITIES: No clubbing, cyanosis, edema. She looks mildly cachectic. LABORATORY DATA: Sodium 134, potassium 5.6, BUN 144, creatinine 2.6 (BUN was 65, creatinine 1.1 on 07/16/2020). Liver functions normal. CK is 215, lipase 536. White count 7.2, hemoglobin 11.2, platelets 207. CODE STATUS: DO NOT RESUSCITATE with a trial of intubation. IMPRESSION: 1. Acute kidney injury superimposed on chronic kidney disease. She is prerenal. Has a very high BUN and creatinine ratio. I have reviewed her record. Her renal function started to decline in July. She had a CT scan of the abdomen and pelvis with intravenous (IV) contrast in June. Her diuretic regimen was augmented soon after that. She is also taking metformin and an angiotensin-converting enzyme (BETHANY) inhibitor. I have admitted her to progressive care unit (PCU) bed. We will hydrate her with normal saline. Hold diuretics, BETHANY inhibitor, and metformin. Consult nephrology. Recheck labs later today and then daily. 2. Congestive heart failure, unknown subtype. Echocardiogram ordered. Hold diuretics, beta robert, and BETHANY inhibitor. 3. Hypotension, probably from dehydration. Echocardiogram ordered. Cardiac enzymes ordered. Hold carvedilol, lisinopril, diuretics. 4. Diabetes. Hold her metformin. Sliding-scale insulin coverage for now. 5. Chronic obstructive pulmonary disease (COPD). Continue nebulized bronchodilator. 6. Fbn-ahspv-otuj lung cancer. There are no adrenal masses on a CT from 06/17/2020. I have ordered a basal cortisol level. If pressure does not respond to fluid, we will give steroid with hydrocortisone. 7. History of gout. Getting allopurinol 3 mg daily. 8. Hypotension. Continue current dose of levothyroxine. Check free T4, thyroid stimulating hormone (TSH). 9. Hyperlipidemia. Continue her simvastatin 40 mg daily. 10. Chronic anxiety. Continue her Xanax on an as-needed basis. Will hold her Ambien, as I am not comfortable giving her both Ambien and Xanax.
[2020-08-14 16:52] LABS: FREE T4 1.49 NG/DL (0.76-1.46); THYROID STIMULATING HORMONE 0.865 uIU/ML (0.358-3.740)
[2020-08-14 17:04] VITALS: BP 114/55
--- NOTE | 2020-08-14 17:19 | REP ---
INDICATION: BROOKE COMPARISON: None TECHNIQUE: Real time loaiza scale ultrasound examination using curved array transducer. FINDINGS: The kidneys are normal in reniform shape and size with increased central sinus fat consistent with chronic medical renal disease. No hydronephrosis, nephrolithiasis, or renal mass lesion. Incidental simple left midpole renal cyst measures 1.3 cm. Right kidney measures 10.3 x 5.7 x 5.6 cm. Left kidney measures 10.1 x 3.9 x 5.0 cm. Bladder is unremarkable. IMPRESSION: 1. Chronic medical renal disease. No hydronephrosis. <Electronically signed by Salinas Garcia > 08/14/20 [id number]
[2020-08-14] MEDS: HumaLOG INSULIN (NovoLOG) PER UNIT SC SCH ×2 (17:47→20:40)
[2020-08-14] MEDS ORDERED: SLF 3 ML SYR IV PRN (18:45)
[2020-08-14 19:52] VITALS: BP 90/50
[2020-08-14] MEDS: SIMVASTATIN 40 MG TAB PO SCH (20:37)
[2020-08-14] MEDS: APIXABAN 5 MG TAB (ELIQUIS) PO SCH (20:37)
[2020-08-14] MEDS: IPRATROPIUM 0.5MG/ALBUTEROL 2.5MG INH SOL UD 3ML (DUONEB) NEB SCH (20:40)
[2020-08-14] MEDS: SLF 3 ML SYR IV SCH (20:40)
[2020-08-14 21:38] LABS: CALCIUM LEVEL 8.5 MG/DL (8.8-10.2); CK-MB VALUE MASS 2.9 NG/ML (<3.6); CREATININE FOR GFR 2.43 MG/DL (0.55-1.30); GLOMERULAR FILTRATION RATE 20.7 (>39); MB/CK RELATIVE INDEX 2.3 (< OR =4); POTASSIUM SERUM 4.3 MEQ/L (3.5-5.1); TROPONIN I 0.05 NG/ML (< 0.10)
[2020-08-14] MEDS: SODIUM BICARBONATE 75 MEQ in D5W 1,000 ML IV SCH (23:31)
[2020-08-15] VITALS (8 sets, daily range): BP systolic 80–117; BP diastolic 40–59
[2020-08-15 00:14] LABS: APPEARANCE, URINE HAZY (CLEAR); BACTERIA, URINE AUTO NEGATIVE (NEGATIVE); BILIRUBIN, URINE AUTO NEGATIVE (NEGATIVE); BLOOD, URINE BLOOD 1+ (NEGATIVE); COLOR, URINE YELLOW (YELLOW); GLUCOSE, URINE (UA) AUTO NEGATIVE (NEGATIVE); KETONE, URINE AUTO NEGATIVE (NEGATIVE); LEUKOCYTE ESTERASE, URINE AUTO 1+ (NEGATIVE); NITRITE, URINE AUTO NEGATIVE (NEGATIVE); PROTEIN, URINE AUTO NEGATIVE (NEGATIVE); RBC, URINE AUTO 4 /HPF (0-3); SPECIFIC GRAVITY URINE AUTO 1.008 (1.002-1.035); SQUAMOUS EPITHELIAL CELL UR AU 1 /HPF (0-6); UROBILINOGEN, URINE AUTO 0.2 mg/dL (0.0-2.0); WBC, URINE AUTO 15 /HPF (0-3)
[2020-08-15] MEDS ORDERED: NS 500 ML IV ONE (00:35)
[2020-08-15] MEDS: IPRATROPIUM 0.5MG/ALBUTEROL 2.5MG INH SOL UD 3ML (DUONEB) NEB SCH ×4 (02:55→20:22)
[2020-08-15] MEDS: LEVOTHYROXINE 50MCG TABLET (0.05MG) PO SCH (05:34)
[2020-08-15 05:50] LABS: HEMATOCRIT 29.3 % (36.0-47.0); HEMOGLOBIN 9.6 g/dl (12.0-15.5); MEAN CORPUSCULAR HEMOGLOBIN 27.7 pg (27.0-33.0); MEAN CORPUSCULAR HGB CONC 32.8 g/dl (32.0-36.5); MEAN CORPUSCULAR VOLUME 84.4 fl (80.0-96.0); PLATELET COUNT, AUTOMATED 176 10^3/uL (150-450); RED BLOOD COUNT 3.47 10^6/uL (4.00-5.40); WHITE BLOOD COUNT 5.9 10^3/uL (4.0-10.0)
[2020-08-15 06:28] LABS: CALCIUM LEVEL 8.1 MG/DL (8.8-10.2); CK-MB VALUE MASS 2.4 NG/ML (<3.6); CREATININE FOR GFR 2.11 MG/DL (0.55-1.30); GLOMERULAR FILTRATION RATE 24.4 (>39); MAGNESIUM LEVEL 1.7 MG/DL (1.8-2.4); MB/CK RELATIVE INDEX 2.26 (< OR =4); POTASSIUM SERUM 4.3 MEQ/L (3.5-5.1); TROPONIN I 0.04 NG/ML (< 0.10)
[2020-08-15] MEDS: SLF 3 ML SYR IV SCH ×3 (06:38→21:21)
[2020-08-15] MEDS: OMEPRAZOLE 20 MG CAP PO SCH (07:59)
[2020-08-15] MEDS: APIXABAN 5 MG TAB (ELIQUIS) PO SCH ×2 (07:59→21:21)
[2020-08-15] MEDS: HumaLOG INSULIN (NovoLOG) PER UNIT SC SCH ×4 (07:59→21:21)
[2020-08-15] MEDS: FOLIC ACID 1 MG TAB PO SCH (07:59)
[2020-08-15] MEDS ORDERED: allopurinoL 300 MG TAB PO SCH (09:00)
[2020-08-15 09:40] LABS: CORTISOL AM 14.9 UG/DL (4.3-22.4)
[2020-08-15] MEDS ORDERED: HYDROCORTISONE 100 MG/2 ML VIAL (J1720 PER 1) IV ONE (10:05)
--- NOTE | 2020-08-15 11:07 | IPN ---
PROGRESS NOTE DATE: 08/15/2020 SUBJECTIVE: Suzanne is seen in PCU. Her renal function has improved. Her hyperkalemia has resolved. She was seen by nephrology and I am waiting for their note. Overall, she feels well. She is not short of breath with the hydration. Blood pressure a little low overnight, but this improved this morning, it was 80/40 around midnight and is up to 103/57 this morning. OBJECTIVE: VITAL SIGNS: Afebrile. Vital signs as listed. NECK: No JVD. LUNGS: Clear. HEART: Regular rate and rhythm. ABDOMEN: Soft and nontender. EXTREMITIES: No peripheral edema. Moves arms and legs with equal strength. LABORATORY DATA: Hemoglobin 9.6 (down with hydration), potassium is 4.3, creatinine is down to 2.1. Osmolality is high. Troponin is negative x3. Urinalysis shows 15 white cells and no bacteria. Culture is pending. IMPRESSION: 1. Acute kidney injury probably from excessive diuresis. Renal function is improving on a daily basis. We are going to slow down her IV fluid rate. Her p.o. intake is good. She is on D5W with sodium bicarbonate at 100 an hour. 2. Diabetes. Sliding scale insulin coverage for now. She is on metformin as an outpatient. We probably will not be restarting that in the face of the acute kidney injury. 3. Congestive heart failure. Unknown pattern. Echocardiogram is pending. Her diuretic, beta-robert, and BETHANY inhibitor are on hold. 4. Hypotension. She is still intermittently hypotensive. Hold carvedilol, lisinopril, and diuretics. Continue IV fluids. 5. Chronic obstructive pulmonary disease (COPD). Continue nebulized bronchodilator. 6. Nonsmall cell lung cancer. Basal cortisol level is pending. For the hypotension overnight, I am going to give a single dose of hydrocortisone waiting for results of the fasting cortisol to come back. 7. Hypothyroidism. Continue current dose of levothyroxine. 8. Hyperlipidemia. Continue simvastatin.
[2020-08-15] MEDS: SODIUM BICARBONATE 75 MEQ in D5W 1,000 ML IV SCH ×2 (11:28→13:47)
[2020-08-15 15:03] LABS: CK-MB VALUE MASS 2.1 NG/ML (<3.6); MB/CK RELATIVE INDEX 1.62 (< OR =4); TROPONIN I 0.03 NG/ML (< 0.10)
--- NOTE | 2020-08-15 20:02 | ECGEPIP ---
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
[2020-08-15] MEDS: SIMVASTATIN 40 MG TAB PO SCH (21:21)
--- NOTE | 2020-08-15 21:52 | ECHO ---
ECHOCARDIOGRAM DATE OF PROCEDURE: 08/15/2020 Age: 74 Gender: Female Height: 168 cm Weight: 77 kg REFERRING PHYSICIAN: Dr. Chris Kaye INDICATION: Heart failure unspecified MEASUREMENTS: 2D Measurements: Left atrium 4.0 cm Intraventricular septum 1.02 cm Posterior wall 1.09 cm Left ventricle diastole 3.7 cm Aortic root 2.0 cm Inferior vena cava 2.0 cm with marked reduction of respiratory variation Doppler Measurements: No aortic stenosis No aortic regurgitation Aortic valve velocity 139 cm/s Mild mitral regurgitation No mitral stenosis Severe tricuspid regurgitation Estimated right ventricle systolic pressure at least 91 mmHg Estimated right atrial pressure of at least 20 mmHg Mild pulmonic regurgitation Pulmonary pressure acceleration time 85 msec MITRAL ANNULAR TISSUE DOPPLER E prime septal 8.6 cm/s, E prime lateral 12.6 cm/s DESCRIPTION: Rhythm was atrial fibrillation with frequent ventricular demand pacing. Image quality was fair. This was a 2D, M-mode, color flow Doppler, and pulsed wave Doppler examination including mitral annular tissue Doppler. CONCLUSIONS: 1. Mild right ventricular hypertrophy with appearance of normal right ventricle size. Normal right ventricle systolic function. Flattening of the intraventricular septum in both diastole and systole in keeping with both volume and pressure overload of the right ventricle. Mild right atrial dilatation. Normal appearing tricuspid leaflets. Severe tricuspid regurgitation with systolic flow reversal in the hepatic veins. Very severe elevation of estimated right ventricle systolic pressure (at least 91 mmHg). 2. Inferior vena cava plethora with marked reduction of respiratory variation in keeping with elevated CVP of at least 20 mmHg. 3. Normal left ventricle size and systolic function. LVEF 60% by visual estimate. Unable to determine LV diastolic function in the setting of atrial fibrillation. 4. Mild left atrial dilatation. 5. Moderate aortic valve sclerosis of a 3-cuspid aortic valve. No aortic stenosis or regurgitation. 6. Presence of a pacemaker lead coursing towards right ventricle apex. 7. Tiny pericardial effusion. MTDD
[2020-08-15] MEDS ORDERED: SODIUM BICARBONATE 50 MEQ in NS 0.45% 1,000 ML IV SCH (22:30)
[2020-08-16] MEDS: IPRATROPIUM 0.5MG/ALBUTEROL 2.5MG INH SOL UD 3ML (DUONEB) NEB SCH ×4 (01:07→20:00)
[2020-08-16] MEDS: ACETAMINOPHEN TAB 650MG DOSE (2X325MG) PO PRN ×2 (04:47→19:36)
[2020-08-16] MEDS: LEVOTHYROXINE 50MCG TABLET (0.05MG) PO SCH (05:32)
[2020-08-16] MEDS: SLF 3 ML SYR IV SCH ×3 (05:33→21:53)
[2020-08-16 06:00] VITALS: BP 140/74
[2020-08-16 06:24] LABS: HEMATOCRIT 29.9 % (36.0-47.0); HEMOGLOBIN 10.2 g/dl (12.0-15.5); MEAN CORPUSCULAR HEMOGLOBIN 28.3 pg (27.0-33.0); MEAN CORPUSCULAR HGB CONC 34.1 g/dl (32.0-36.5); MEAN CORPUSCULAR VOLUME 83.1 fl (80.0-96.0); PLATELET COUNT, AUTOMATED 183 10^3/uL (150-450); WHITE BLOOD COUNT 6.6 10^3/uL (4.0-10.0)
[2020-08-16 06:56] LABS: CREATININE FOR GFR 1.31 MG/DL (0.55-1.30); GLOMERULAR FILTRATION RATE 42.3 (>39); MAGNESIUM LEVEL 1.6 MG/DL (1.8-2.4); PERCENT SATURATION 16.1 % (13.2-45.0); POTASSIUM SERUM 3.6 MEQ/L (3.5-5.1)
[2020-08-16] MEDS: APIXABAN 5 MG TAB (ELIQUIS) PO SCH ×2 (08:22→20:04)
[2020-08-16] MEDS: OMEPRAZOLE 20 MG CAP PO SCH (08:22)
[2020-08-16] MEDS: FOLIC ACID 1 MG TAB PO SCH (08:22)
[2020-08-16] MEDS: HumaLOG INSULIN (NovoLOG) PER UNIT SC SCH ×4 (08:23→20:06)
--- NOTE | 2020-08-16 08:24 | CR ---
NEPHROLOGY CONSULTATION DATE: 08/15/2020 REQUESTING PHYSICIAN: Dr. Chris Kaye CONSULTING PHYSICIAN: Dr. Rodney Barajas REASON FOR CONSULTATION: Acute renal failure with hyperkalemia and metabolic acidosis. HISTORY OF PRESENT ILLNESS: Miss Suzanne Naranjo is a 74-year-old female previously unknown to me with a past medical history of chronic kidney disease stage 3a with baseline GFR of about 50 mL per minute and baseline creatinine of around 1.1. She also has a past medical history of congestive heart failure (echocardiogram done today showed preserved left ventricular ejection fraction). Also a history of atrial fibrillation anticoagulated with Eliquis, hypothyroidism, hypertensive heart disease, dyslipidemia, type 2 diabetes mellitus, peripheral arterial disease and other comorbid conditions mentioned below. The patient states that she recently had some mild ankle edema and she saw her P.A. and the farmworker fur's office and her home diuretic regimen was increased from Furosemide 40 mg twice daily up to Furosemide 80 mg in the morning and 40 mg in the evening. She reports her ankle edema subsequently resolved but the patient also became progressively fatigued and tired, to the point where she even had trouble ambulating and subsequently her daughter brought her to the Emergency Room. In the Emergency Room yesterday the patient was found to be very hypotensive with blood pressure 65/43 on arrival and laboratory studies revealed a blood urea nitrogen of 144 with creatinine of 2.6 and concomitant metabolic acidosis and hyperkalemia. The patient was started on IV fluids last night and Nephrology consultation was requested for help in the management of her renal failure. The patient was seen and examined this morning at the bedside. She reports that she feels less fatigued since she came in. She denies any recent use of steroids. PAST MEDICAL HISTORY: The patient's past medical history is significant for: 1. Chronic kidney disease stage 3a based on creatinine 1.1. 2. Hypertension. 3. Hypertensive heart disease. 4. Atrial fibrillation. 5. Non small cell lung cancer, status post radiation therapy. 6. Congestive heart failure. 7. Hypothyroidism. 8. Dyslipidemia. 9. Asthma. 10. Gastroesophageal reflux disease. 11. Peripheral arterial disease. 12. Carotid atherosclerosis. 13. Type 2 diabetes. 14. Anxiety. PAST SURGICAL HISTORY: The patient's past surgical history is significant for: 1. Bronchoscopy. 2. Thoracentesis. 3. Recent infusaport placement. FAMILY HISTORY: The patient's family history is significant for diabetes and hypertension. SOCIAL HISTORY: The patient lives with her daughter. She is an ex-smoker. No alcohol or street drugs. ALLERGIES: 1. Sulfa. 2. Cipro. 3. Floxacin. 4. Codeine. 5. Diphenhydramine. HOME MEDICATIONS: 1. Albuterol inhaler p.r.n. 2. Allopurinol 300 mg daily. 3. Xanax one mg p.r.n. 4. Eliquis 5 mg twice daily. 5. Carvedilol 12.5 mg twice daily. 6. Folic Acid one mg daily. 7. Lasix 80 mg in the morning, 40 mg in the evening. 8. Levothyroxine 50 mcg daily. 9. Lisinopril 2.5 mg daily. 10. Omeprazole 20 mg daily. 11. Potassium Chloride 10 mEq daily. 12. Simvastatin 40 mg daily. 13. Ambien 5 mg every night. 14. Metformin 850 mg q. h.s. 15. Magnesium Chloride twice daily. REVIEW OF SYSTEMS: Constitutional: She denies any fevers or chills. Eyes: She denies visual changes or tearing. ENT: She denies rhinorrhea, epistaxis or odynophagia. Cardiovascular: She has a history of congestive heart failure. She denies shortness of breath. Respiratory: She is an ex-smoker. She has non small cell lung cancer. Gastrointestinal: She denies nausea or vomiting. She has a history of gastroesophageal reflux disease. Genitourinary: She denies dysuria or hematuria. Endocrine: She reports hypothyroidism and type 2 diabetes mellitus. Hematological/Oncological: She reports chronic anticoagulation and anemia. Musculoskeletal: She reports generalized weakness and trouble walking recently. While she has been weak, she denies any acute myalgias or arthralgias. Neurologic: She denies seizure or syncope. Psychiatric: She has a history of anxiety. The remainder review of systems is negative or as per HPI. PHYSICAL EXAMINATION: VITAL SIGNS: Temperature 97.9, pulse 74, respiratory rate 18, blood pressure 103/57, saturating 100% on room air. INTAKE AND OUTPUT: Intake yesterday was 1.5 liters. Urine output thus far today is 700 mL. Weight in the bed scale today is 75.8 kg. GENERAL APPEARANCE: The patient was seen sitting upright at the edge of the bed, legs dangling. Elderly female, awake, alert, oriented x3, conversational and in no distress. HEENT: The extraocular muscles are intact. The tongue is moist. NECK: Supple. Jugular veins were not elevated while she was sitting upright. CHEST: There is an [id number] present in the right chest. CARDIOVASCULAR: Regular. Radial pulses are palpable. There is no edema. LUNGS: Occasional rhonchi and prolonged expiration. She is comfortable on room air. ABDOMEN: Soft and nontender. EXTREMITIES: Negative for edema. NEUROLOGICAL: Oriented x3 and a good historian. LABORATORY STUDIES: Sodium 137, potassium 4.3, bicarbonate 17, BUN 128, down from 144 on admission, creatinine down from 2.6 on admission, glucose 191, serum osmolality 326, magnesium 1.7. Hemoglobin 9.6, platelet count 176, white count 5.9. A.M. cortisol level 14.9. TSH and T-4 are both acceptable. Urine culture is pending. Urinalysis showed 1+ blood and 1+ leukocyte esterase. IMAGING: A chest x-ray done yesterday showed chronic right lung opacities that are stable and unremarkable pleural angles. Renal ultrasound done yesterday showed no significant findings. No obstruction. CURRENT INPATIENT MEDICATIONS: The patient was on normal saline at 150 mL an hour. I have switched her to d5w with 75 mEq of sodium bicarbonate to run at 100 mL per hour. She is on Albuterol p.r.n., Allopurinol 300 mg p.o. daily, Xanax p.r.n., Eliquis 5 mg p.o. twice daily, folic acid one mg p.o. daily. Hydrocortisone 50 mg IV times one dose was given this morning. She is on insulin, Levothyroxine 50 mcg p.o. daily, Omeprazole 20 mg p.o. daily, Simvastatin 40 mg p.o. q. h.s. PROBLEMS: 1. Acute kidney injury superimposed on chronic kidney disease stage 3a the patient's baseline creatinine is around 1.1 with a baseline GFR of around 50 mL per minute. Her acute kidney injury is in the setting of over diuresis with concomitant use of Lisinopril and Metformin. Her renal ultrasound was negative for obstruction. Her urinalysis is benign. Her diuretics are on hold and Lisinopril and Metformin are likewise held. She is receiving IV fluids. She is hyperosmolar at this time and she is receiving d5w with sodium bicarbonate supplementation in view of her metabolic acidosis. Renal function is slowly recovering. Her blood pressures have improved. There are no uremic signs or symptoms and there are no indications for dialysis at this time. 2. Hypotension in the setting of over diuresis and dehydration with concomitant use of beta robert and chasity inhibitor at home all her blood pressure medications and her diuretics are on hold and she is receiving IV fluids and her blood pressures are responding nicely and the Primary Team also gave a dose of IV Hydrocortisone which I think has helped. 3. Metabolic acidosis it is secondary to renal failure. She is receiving bicarbonate containing fluids at this time. I will discontinue bicarbonate containing fluids once her serum bicarbonate is up to 20. 4. Type 2 diabetes mellitus she is not suitable for Metformin at present. Her fingerstick is up to 371 this evening because of IV Hydrocortisone and also d5w containing fluids. We will readjust her fluids in view of worsening hyperglycemia. 5. Anemia - The patient is already on a folic acid supplement. I checked prior labs and I do not see any iron panel. We will get an iron panel. 6. History of hyperuricemia or gout I am going to hold the Allopurinol for now in view of kidney injury. Thank you for involving me in the care of Miss Naranjo. I will be happy to follow her along with you.
--- NOTE | 2020-08-16 10:12 | REP ---
INDICATION: COUGH COMPARISON: 08/14/2020. TECHNIQUE: PA/Lateral FINDINGS: Chronic right lung opacities remain stable. There is stable elevation of the right hemidiaphragm. Left lung demonstrates no infiltrate. There is stable cardiomegaly. There is some calcification of the thoracic aorta. The mediastinal silhouette is unchanged. There are degenerative changes of the spine without compression deformity. Left pacemaker and right central venous catheter are unchanged in position. IMPRESSION: Stable exam. <Electronically signed by Stu Ng > 08/16/20 1000
[2020-08-16] MEDS ORDERED: MAG SULF 1GM/100ML (MAG RUN) 1 GM in IV 1 EA IV ONE (11:00)
--- NOTE | 2020-08-16 11:47 | IPN ---
PROGRESS NOTE DATE: 08/16/2020 SUBJECTIVE: Suzanne's renal function has returned to baseline. Her PO intake is good. She is not showing any evidence of congestive heart failure. Her diuretics have been held since admission. She was seen by nephrology yesterday and appreciate their involvement. Her blood pressures have returned to normal range. She was hypotensive on admission but this has improved with hydration. I also gave her single dose of IV Hydrocortisone but her cortisol levels returned normal so we will not be continuing that. She has type 2 diabetes, was on Metformin previously. This was discontinued with the acute kidney injury. Will be starting some Glimepiride in its place which should work okay considering her kidney issues. OBJECTIVE: VITAL SIGNS: 140/74, pulse 73, respiratory rate 17, 97% O2 saturation. GENERAL: She is alert, conversant, no distress. NECK: No JVD. LUNGS: Clear. HEART: Regular rhythm, 1/6 systolic ejection murmur. ABDOMEN: Soft and nontender, no masses. EXTREMITIES: No peripheral edema. LABS: Creatinine is down to 1.3, potassium 3.6. CBC stable. Blood sugars have been up, were in the 100 range until she got the Hydrocortisone and then went up to 370. IMPRESSION: 1. Acute kidney injury secondary to dehydration. Holding diuretic, giving IV fluids over the last few days has returned her renal function to baseline status. Appreciate nephrology help. IV fluids have been discontinued. She should be able to hydrate herself adequately orally. 2. Congestive heart failure. I spoke with SAM Duenas at [facility]. We discussed the case. She understands she is being discharged without any diuretics and will need to eventually have these restarted. Alberta will make an appointment to see Suzanne early next week in their office and will be managing diuretics after discharge. 3. Diabetes, type 2. Stopped her Metformin which was held on admission due to the renal situation. If her renal function remains stable then this could probably be resumed down the line. In the meantime I have ordered Glimepiride 1 mg twice daily to start today. Use sliding scale insulin for now. 4. Hypothyroidism, stable, continue Levothyroxine. 5. Atrial fibrillation, rate is controlled. Continue Eliquis for thromboembolic prophylaxis. 6. Hyperlipidemia, continue Simvastatin at her current dose. 7. Non-small cell lung cancer. She is concerned about her cough and I ordered another chest x-ray for reassurance. She has oncologist with whom she follows. I reviewed today's chest x-ray and looks stable from previous. Anticipate discharge tomorrow.
--- NOTE | 2020-08-16 12:33 | IPN ---
PROGRESS NOTE DATE: 08/16/2020 SUBJECTIVE: The patient is seen and examined this morning at the bedside. She complains of cough with clear sputum. She had a chest x-ray done this morning that shows no acute finding and no sign of fluid overload. Laboratory studies show improvement in renal function with GFR up to 42 on the labs today. Her blood urea nitrogen is still double her usual baseline. OBJECTIVE: VITAL SIGNS: Temperature is 97.2, pulse is 73, respiratory rate is 17, blood pressure is 140/74, saturating 97% on room air. INTAKE AND OUTPUT: Intake yesterday was 1.6 liters, urine output yesterday was 700 ml, weight on the bed scale today is not recorded. GENERAL: Patient is seen awake, alert, lying in bed in no distress. Elderly female, oriented x3, interactive, conversational, bright. HEENT: Extraocular muscles are intact. Tongue is moist. NECK: Supple. Jugular veins are not elevated. HEART: Heart sounds are regular. There is no edema in the legs whatsoever. There is an Infusaport present in the right chest wall. LUNGS: Occasional rhonchus but no crackles or rales. She is comfortable on room air. ABDOMEN: Soft and nontender. EXTREMITIES: Negative for edema, clubbing or cyanosis. NEUROLOGIC: She is oriented x3, interactive and good historian. LABORATORY DATA: Today's laboratory studies shows white count 6.6, hemoglobin 10.2, platelets 183,000, sodium 144, potassium 3.6, bicarbonate 22, BUN 79. Her usual baseline BUN is in the 30s, creatinine 1.3. Magnesium 1.6. Transferrin saturation 16%. Chest x-ray done today shows stable chronic changes with no signs of fluid overload. INPATIENT MEDICATIONS: I stopped her IV fluids. She was receiving half normal saline with 50 mEq of sodium bicarbonate at 90 ml/hr. She is ordered for magnesium sulfate 1 gram x1 run IV. She was started on Glimepiride 1 mg p.o. b.i.d. Her remainder of medications were all unchanged as compared to yesterday. PROBLEMS: 1. Acute kidney injury superimposed on CKD Stage IIIA. Patient's baseline creatinine is 1.1 with baseline GFR of around 50 ml/minute and baseline blood urea nitrogen around 30 to 40. Her acute kidney injury was in the setting of over-diuresis with concomitant use of Lisinopril and Metformin. Her renal ultrasound was negative for obstruction. Her urinalysis was benign. Her diuretics remain on hold but her renal function has improved nicely now. Blood urea nitrogen is still double her usual baseline but creatinine is down to 1.3. I am stopping IV fluids today. I would keep her off of Lisinopril life-long. 2. Hypertension. Patient initially came in with severe hypotension in the setting of over-diuresis. Her blood pressures have now improved. I am stopping IV fluids this morning. Her diuretic can probably be restarted in the coming 48 hours. For now, they remain on hold. I suggest to keep her off of any BETHANY inhibitor or angiotensin receptor robert life-long given that she has a preserved left ventricular ejection fraction and no significant proteinuria. I see no need to put her on a low dose BETHANY or ARB. 3. Metabolic acidosis, it was secondary to renal failure, it has improved nicely. Bicarbonate containing fluids have been stopped. 4. Type 2 diabetes mellitus. Primary Team has started her now on Glimepiride. 5. Anemia. Her iron stores are acceptable. There is no need for transfusion. 6. Heart failure with preserved ejection fraction. Volume status is reasonable. Chest x-ray is negative for any sort of fluid on the lungs. I would continue to hold her diuretics but have stopped her IV fluids at this point. 7. Hypomagnesemia, magnesemia supplementation is ordered.
[2020-08-16] MEDS: GLIMEPIRIDE 1 MG TABLET PO SCH (13:54)
[2020-08-16 14:00] VITALS: BP 138/70
[2020-08-16] MEDS ORDERED: SODIUM CHLORIDE 0.9% INJ 10 ML SYR IV PRN (15:45)
[2020-08-16] MEDS: SIMVASTATIN 40 MG TAB PO SCH (20:04)
[2020-08-16 22:00] VITALS: BP 138/60
[2020-08-16 23:33] LABS: URIC ACID 2.4 MG/DL (2.6-6.0)
[2020-08-17] MEDS: IPRATROPIUM 0.5MG/ALBUTEROL 2.5MG INH SOL UD 3ML (DUONEB) NEB SCH ×3 (02:00→14:00)
[2020-08-17] MEDS ORDERED: SODIUM CHLORIDE NASAL 0.65% SPRAY BTL (OCEAN) PRN (03:10)
[2020-08-17] MEDS: LEVOTHYROXINE 50MCG TABLET (0.05MG) PO SCH (05:30)
[2020-08-17] MEDS: SLF 3 ML SYR IV SCH (05:31)
[2020-08-17 06:00] VITALS: BP 140/82
[2020-08-17] MEDS ORDERED: cefTRIAXone SOD 1 GM in D5W MINI-BAG PLUS 50 ML IV SCH (06:00)
[2020-08-17 06:20] LABS: HEMATOCRIT 32.2 % (36.0-47.0); HEMOGLOBIN 10.4 g/dl (12.0-15.5); MEAN CORPUSCULAR HEMOGLOBIN 27.2 pg (27.0-33.0); MEAN CORPUSCULAR HGB CONC 32.3 g/dl (32.0-36.5); MEAN CORPUSCULAR VOLUME 84.1 fl (80.0-96.0); PLATELET COUNT, AUTOMATED 196 10^3/uL (150-450); RED BLOOD COUNT 3.83 10^6/uL (4.00-5.40); WHITE BLOOD COUNT 8.4 10^3/uL (4.0-10.0)
[2020-08-17 06:44] LABS: CREATININE FOR GFR 1.07 MG/DL (0.55-1.30); GLOMERULAR FILTRATION RATE 53.4 (>39); MAGNESIUM LEVEL 1.8 MG/DL (1.8-2.4)
[2020-08-17] MEDS: GLIMEPIRIDE 1 MG TABLET PO SCH ×2 (08:00→12:04)
[2020-08-17] MEDS: APIXABAN 5 MG TAB (ELIQUIS) PO SCH (08:31)
[2020-08-17] MEDS: FOLIC ACID 1 MG TAB PO SCH (08:31)
[2020-08-17] MEDS: OMEPRAZOLE 20 MG CAP PO SCH (08:31)
[2020-08-17] MEDS: HumaLOG INSULIN (NovoLOG) PER UNIT SC SCH ×2 (08:32→12:03)
[2020-08-17] MEDS ORDERED: SODIUM CHLORIDE 0.9% INJ 10 ML SYR IV SCH (09:00)
[2020-08-17] MEDS ORDERED: CEPH250T PO (10:06)
[2020-08-17] MEDS ORDERED: GLIM2TAB4 PO (10:06)
--- NOTE | 2020-08-17 11:04 | DSES ---
DISCHARGE SUMMARY DATE OF ADMISSION: 08/14/2020 DATE OF DISCHARGE: 08/17/2020 PREOPERATIVE DIAGNOSIS: Acute kidney injury secondary to prerenal azotemia. SECONDARY DIAGNOSES: 1. Congestive heart failure with preserved ejection fraction (primarily right-sided heart failure with very severe pulmonary hypertension noted on echocardiogram). 2. Klebsiella urinary tract infection. 3. Anemia secondary to chronic kidney disease. 4. Type-2 diabetes. 5. Hypothyroidism. 6. Atrial fibrillation. 7. Hyperlipidemia. 8. Non-small cell lung cancer. HISTORY: Suzanne Naranjo was admitted with acute kidney injury. She had an augmented dose of diuretic recently and presented in acute renal failure. HOSPITAL COURSE: The patient's acute renal failure was treated by holding her diuretics, BETHANY inhibitor, and Metformin. Renal function returned to normal. She remained on compensated on exam without evidence of volume overload, so diuretics were not restarted. I spoke with Alberta Collins at [facility] yesterday. She is aware of the admission. Plan for discharge without diuretics and has already made an appointment for her to follow up in the office to assess when to restart her diuretics. Her Metformin was held. I started her on glimepiride 1 mg daily. I spoke with her primary care provider, Dr. Jeffrey Dumont, today. He is aware of the hospitalization, discharge plans, and change in diabetic medications. She had a klebsiella UTI and was started on Rocephin yesterday when the culture came back. She will be discharged on Keflex. The rest of her medical problems remained stable during her hospitalization. On the day of discharge, she is resting comfortably. BP is 140/82, pulse 84, respiratory rate 19, 98% O2 saturation. She is alert, conversant. She has no JVD. Lungs are clear. Heart regular rate and rhythm, 1/6 systolic ejection murmur. Abdomen is soft and nontender. No masses. Trace peripheral edema. Echocardiogram showed an ejection fraction of 60%, very severe elevation of right-sided systolic pressure at least 90 mm. Mild left atrial dilatation 40 mm. No significant aortic or mitral valve abnormalities. She was found to be anemic. I did iron studies. They were all normal probably related to baseline kidney disease. We did a renal ultrasound, negative for obstruction or other abnormalities. Her blood pressure was low when she came in. Her blood pressure medications were held and remained normal off medication. SIGNIFICANT LABS: Today white count is 8.4, hemoglobin 10.4, platelets 196. Sodium 143, potassium 4, BUN 49, creatinine 1.0, glucose 144. Calcium is 9. Iron studies were normal. Magnesium today is 1.8. Troponins were flat. Fasting cortisol level was normal. Blood sugars are generally between 150 and 200. Urine grew out klebsiella sensitive to cephalosporins. DISPOSITION: The patient is discharged home in improved and stable condition. I called her primary care provider Dr. Jeffrey Dumont and I called her cardiology care provider SAM Duenas. Appropriate clinical information was shared. She will follow up with Dr. Dumont next week and follow up with [facility] next week as well She will need follow up lab work. The patient is aware that she is most certainly going to need to restart her diuretics. She is on a 2 gm sodium diet, 1800 mL per day fluid restriction. DISCHARGE MEDICATIONS: The only new medications at this point is cephalexin 250 mg four times daily for seven days and glimepiride 1 mg daily. These were sent to her pharmacy. Otherwise she will stay on her previous medications which were albuterol inhaler as needed, allopurinol 30 mg daily, Xanax 2 mg four times daily as needed, Eliquis 5 mg twice a day, Carvedilol 12.5 mg twice a day, fluticasone nasal spray, folic acid 1 mg daily, levothyroxine 50 mcg daily, MagOx 2 twice a day, omeprazole 20 mg daily, simvastatin 40 mg daily, Incruse Ellipta 62.5 mcg daily. Furosemide, Lisinopril, Metformin, potassium, and Ambien are all on hold.
--- NOTE | 2020-08-17 12:34 | IPN ---
NEPHROLOGY PROGRESS NOTE DATE: 08/17/2020 SUBJECTIVE: Patient was seen and examined this morning at the bedside. She is discharge pending. She feels well. She no longer feels fatigued. She denies any shortness of breath. She is being treated for Klebsiella urinary tract infection. Her renal parameters have fully returned to baseline, both blood urea nitrogen and serum creatinine. Her diuretics remain on hold. OBJECTIVE: VITAL SIGNS: Temperature 97.5, pulse 84, respiratory rate 19, blood pressure 138/60, saturating 96% on room air. INTAKE AND OUTPUT: Intake yesterday was 2 liters. Weight in the bed scale today is not recorded. GENERAL: Patient is seen sitting up at the edge of the bed, legs dangling. Elderly female, awake, alert, oriented times three, comfortable and in no distress. HEENT: Extraocular muscles are intact. Tongue is moist. Neck is supple. Jugular veins are not elevated. HEART: Sounds are regular. There is absolutely no edema in the legs whatsoever. There is an Infusaport present in the right chest wall. LUNGS: Show good air movement. She is comfortable on room air. No crackle or rale. ABDOMEN: Soft and nontender. EXTREMITIES: Negative for clubbing, edema or cyanosis. NEUROLOGIC: She is oriented times three, interactive and at baseline mentation. LABORATORY DATA: Today's labs show sodium 143, potassium 4.0, bicarbonate 22, BUN 49, creatinine 1.0, glucose 144, magnesium 1.8. Hemoglobin 10.4. Transferrin saturation 16% with an iron level of 62. Chest x-ray done yesterday showed no infiltrates. There are chronic right lung opacities that are stable. INPATIENT MEDICATIONS: She remains off lisinopril and she remains off diuretics. She was started on ceftriaxone 1 gram intravenous (IV) daily. The remainder of the medications are all unchanged as compared to yesterday. PROBLEMS: 1. Status post acute kidney injury. Patient's renal function has recovered to her baseline chronic kidney disease (CKD) stage IIIA. Her kidney injury was in the setting of overdiuresis with concomitant use of lisinopril and metformin. I suggest to keep her off angiotensin converting enzyme (BETHANY) inhibitor or angiotensin receptor robert going forward, given that she has normal left ventricular ejection fraction and no significant proteinuria on laboratories. 2. Hypertension. Blood pressure is optimally controlled at the present time. Suggest to keep her off of angiotensin converting enzyme (BETHANY) or angiotensin receptor robert (ARB) going forward due to risk of recurrent acute kidney injury. Due to risk of acute kidney injury, her blood pressure can probably be controlled with diuretic alone. 3. Heart failure with preserved ejection fraction. Patient's diuretics have been on hold over the course of this admission. She is going to follow up at the cardiology office for restarting diuretics. She is off her chronic potassium supplementation as well, and now potassium is acceptable at 4.0 on the labs today.
== END 2020-08-17 16:30 | disposition home health service (06) | DRG 683 ==
LOC: M ED 12:05 → M ED INP 15:13 → ENRESERV 16:30 → M PCU 16:49 → M MSPAV 08-15 18:49
PROVIDERS: ADMIT Family Medicine; ATTEND Family Medicine
DX: N17.9 Acute kidney failure, unspecified (principal); C34.90 Malignant neoplasm of unspecified part of unspecified bronchus or lung; E87.2 Acidosis; I50.32 Chronic diastolic (congestive) heart failure; N39.0 Urinary tract infection, site not specified; I95.9 Hypotension, unspecified; E86.0 Dehydration; E11.22 Type 2 diabetes mellitus with diabetic chronic kidney disease; J44.9 Chronic obstructive pulmonary disease, unspecified; E87.5 Hyperkalemia; N18.31 Chronic kidney disease, stage 3a; I27.81 Cor pulmonale (chronic); E83.42 Hypomagnesemia; I48.91 Unspecified atrial fibrillation; E78.5 Hyperlipidemia, unspecified; B96.1 Klebsiella pneumoniae [K. pneumoniae] as the cause of diseases classified elsewhere; D63.1 Anemia in chronic kidney disease; Z88.2 Allergy status to sulfonamides; Z88.5 Allergy status to narcotic agent; Z88.8 Allergy status to other drugs, medicaments and biological substances; Z79.899 Other long term (current) drug therapy; Z79.01 Long term (current) use of anticoagulants

== ENCOUNTER → 2020-09-05 | Outpatient (REF) | payer MEDICARE ==
[~2020-09-05] MED LIST changes: +ALLO300T2; +CEPH250T PO; +FLUTISP NARES; +GLIM2TAB4 PO; +POTA10TA17 PO; +ZOLP5TAB PO
[2020-09-05 16:06] LABS: HEMATOCRIT 32.9 % (36.0-47.0); MEAN CORPUSCULAR HGB CONC 30.4 g/dl (32.0-36.5); MEAN CORPUSCULAR VOLUME 88.9 fl (80.0-96.0); PLATELET COUNT, AUTOMATED 240 10^3/uL (150-450); WHITE BLOOD COUNT 7.5 10^3/uL (4.0-10.0)
[2020-09-05 16:45] LABS: HEMOGLOBIN A1c 7.1 %
[2020-09-05 16:46] LABS: ALBUMIN 3.4 GM/DL (3.2-5.2); BILIRUBIN,TOTAL 0.8 MG/DL (0.2-1.0); CALCIUM LEVEL 8.9 MG/DL (8.8-10.2); CREATININE FOR GFR 1.06 MG/DL (0.55-1.30); GLOMERULAR FILTRATION RATE 53.9 (>39); POTASSIUM SERUM 3.9 MEQ/L (3.5-5.1); THYROID STIMULATING HORMONE 3.04 uIU/ML (0.358-3.740); TOTAL PROTEIN 5.9 GM/DL (6.4-8.2)
== END ==
LOC: M SHH 15:39
PROVIDERS: ATTEND Family Medicine
DX: I12.9 Hypertensive chronic kidney disease with stage 1 through stage 4 chronic kidney disease, or unspecified chronic kidney disease (principal); E11.9 Type 2 diabetes mellitus without complications; N18.9 Chronic kidney disease, unspecified

== ENCOUNTER → 2020-09-05 | Outpatient (REF) | payer MEDICARE ==
[2020-09-05 17:41] LABS: MAGNESIUM LEVEL 1.9 MG/DL (1.8-2.4)
== END ==
LOC: M SHH 15:42
PROVIDERS: ATTEND Physician Assistant
DX: I50.32 Chronic diastolic (congestive) heart failure (principal); I48.21 Permanent atrial fibrillation

== ENCOUNTER 2020-10-07 10:37 | Emergency (ER) | payer MEDICARE ==
[~2020-10-07] VITALS: Ht 165.1 cm; Wt 82.5 kg
[~2020-10-07 10:37] MED LIST changes: -ALLO300T2; +ALLO300T2 PO
[2020-10-07 11:41] LABS: BASO % 0.4 % (0.0-1.0); EOS # 0.3 10^3/uL (0.0-0.5); HEMATOCRIT 30.4 % (36.0-47.0); HEMOGLOBIN 9.1 g/dl (12.0-15.5); LYMPH # 0.8 10^3/uL (1.5-5.0); LYMPH % 10.6 % (24.0-44.0); MEAN CORPUSCULAR HEMOGLOBIN 26.1 pg (27.0-33.0); MEAN CORPUSCULAR HGB CONC 29.9 g/dl (32.0-36.5); MEAN CORPUSCULAR VOLUME 87.1 fl (80.0-96.0); MONO # 0.7 10^3/uL (0.0-0.8); MONO % 8.5 % (2.0-8.0); NEUTROPHILS # 5.9 10^3/uL (1.5-8.5); NEUTROPHILS % 76.1 % (36.0-66.0); PLATELET COUNT, AUTOMATED 269 10^3/uL (150-450); RED BLOOD COUNT 3.49 10^6/uL (4.00-5.40); WHITE BLOOD COUNT 7.8 10^3/uL (4.0-10.0)
[2020-10-07] MEDS ORDERED: POTA1TAB23 PO (11:42)
[2020-10-07] MEDS ORDERED: FURO80TA2 PO (11:42)
[2020-10-07] MEDS ORDERED: GLIM2TAB29 PO (11:42)
[2020-10-07 11:51] LABS: INR 2.27; PROTHROMBIN TIME 25.5 SECONDS (12.7-14.5)
[2020-10-07 11:52] LABS: PARTIAL THROMBOPLASTIN TIME 40.9 SECONDS (25.9-37.0)
--- NOTE | 2020-10-07 11:56 | REP ---
INDICATION: fall COMPARISON: 08/16/2020 TECHNIQUE: Portable AP view of the chest FINDINGS: Opacifications of the right mid to lower lung zone suggest parenchymal disease and pleural effusion. Underlying malignancy/mass is also suggested based on prior examination. Diffuse subtle airspace disease cannot be excluded throughout the remainder of the lung altman. Visualized portions of the left cardiac silhouette and mediastinum are normal. [id number]-[id number] identified with tip in the SVC. Skeletal structures are grossly intact. IMPRESSION: Right mid to lower lobe pleuroparenchymal disease increased from prior examination. Possible scattered alveolar infiltrates throughout the remainder of the aerated lung altman. <Electronically signed by Salinas Garcia > 10/07/20 0503
--- NOTE | 2020-10-07 12:09 | REP ---
INDICATION: fall on eliquis COMPARISON: None. TECHNIQUE: Axial noncontrast images from the skull base to the thoracic inlet with coronal reformations. This CT examination was performed using the following dose reduction techniques: Automated exposure control, adjustment of mA and/or kv according to the patient's size, and use of iterative reconstruction technique. FINDINGS: There is a 1.8 cm acute hemorrhagic focus in the high right frontoparietal lobe with surrounding vasogenic edema although no current significant mass effect or midline shift is appreciated. Underlying age-related atrophy and microvascular ischemic changes. No ventriculomegaly or hydrocephalus. No extra-axial fluid collection. Calvarium is intact. IMPRESSION: Acute 1.8 cm hemorrhagic focus in the right frontal parietal lobe with surrounding vasogenic edema. <Electronically signed by Salinas Garcia > 10/07/20 2293
[2020-10-07 12:13] LABS: ALBUMIN 2.7 GM/DL (3.2-5.2); BILIRUBIN,DIRECT 0.7 MG/DL (0.0-0.2); BILIRUBIN,TOTAL 1.2 MG/DL (0.2-1.0); CALCIUM LEVEL 8.8 MG/DL (8.8-10.2); CK-MB VALUE MASS 1.9 NG/ML (<3.6); CREATININE FOR GFR 1.21 MG/DL (0.55-1.30); GLOMERULAR FILTRATION RATE 46.3 (>39); MB/CK RELATIVE INDEX 2.79 (< OR =4); POTASSIUM SERUM 3.7 MEQ/L (3.5-5.1); TOTAL PROTEIN 5.7 GM/DL (6.4-8.2); TROPONIN I 0.04 NG/ML (< 0.10)
--- NOTE | 2020-10-07 12:17 | REP ---
INDICATION: fall on eliquis - anterior chest wall pain and bruising COMPARISON: 05/25/2020 TECHNIQUE: Axial noncontrast images from the thoracic inlet to the upper abdomen with coronal and sagittal reformations. This CT examination was performed using the following dose reduction techniques: Automated exposure control, adjustment of mA and/or kv according to the patient's size, and use of iterative reconstruction technique. FINDINGS: Moderate to large right pleural effusion along with underlying mass/consolidation extending from the right hilum appear increased from prior examination. A small to moderate pericardial effusion is also identified which may be slightly increased from prior examination is well with underlying stable cardiomegaly. Small amounts of linear atelectasis in the left lower lobe and lingula are also increased from prior examination. No pneumothorax. [id number] identified with tip in the right atrium. Dual lead pacemaker in satisfactory position. Surrounding musculoskeletal structures demonstrate age-related degenerative changes without evidence for acute injury. IMPRESSION: Moderate to large right pleural effusion and underlying mass/consolidation extending from the right hilum increased from prior examination. Small amounts of linear atelectasis at the lingula and left base are also now identified. Small to moderate pericardial effusion slightly increased from prior examination along with stable underlying cardiomegaly. No obvious skeletal injury. <Electronically signed by Salinas Garcia > 10/07/20 1590
[2020-10-07] MEDS ORDERED: ISOVUE-370 76% 100ML VIAL As Ordered ONE (12:25)
--- NOTE | 2020-10-07 12:35 | REP ---
INDICATION: swollen legs COMPARISON: None. TECHNIQUE: Ng scale and color Doppler evaluation using linear high frequency transducer. FINDINGS: Ultrasound examination of the right and left lower extremity deep venous structures from the common femoral vein through the calf/ankle to include the peroneal, and tibial veins demonstrates normal compressibility flow and wave patterns in response to respiration and augmentation. There is no evidence for deep venous thrombosis. IMPRESSION: No evidence for deep venous thrombosis. <Electronically signed by Salinas Garcia > 10/07/20 2265
--- NOTE | 2020-10-07 12:59 | REP ---
INDICATION: trauma COMPARISON: 05/25/2020 TECHNIQUE: Axial contrast enhanced images from the thoracic inlet to the upper abdomen with coronal and sagittal reformations using 75 ml Isovue 370 intravenous contrast material. This CT examination was performed using the following dose reduction techniques: Automated exposure control, adjustment of mA and/or kv according to the patient's size, and use of iterative reconstruction technique. FINDINGS: Moderate to large right pleural effusion along with underlying mass/consolidation extending from the right hilum appear increased from prior examination. A small to moderate pericardial effusion is also identified which may be slightly increased from prior examination is well with underlying stable cardiomegaly. Small amounts of linear atelectasis in the left lower lobe and lingula are also increased from prior examination. No pneumothorax. Thoracic aorta and pulmonary vasculature are relatively normal/intact. Atherosclerotic changes are identified. No aortic aneurysm or dissection. No pulmonary embolus. Surrounding musculoskeletal structures are intact without evidence for acute injury. IMPRESSION: Bilateral pleuroparenchymal changes (right greater than left) increased from prior examination likely related to known malignancy. Cardiomegaly and small pericardial effusion similar to prior examination. No evidence for thoracic injury. <Electronically signed by Salinas Garcia > 10/07/20 0987
--- NOTE | 2020-10-07 13:05 | REP ---
INDICATION: trauma. COMPARISON: 06/17/2020 TECHNIQUE: Axial contrast-enhanced images from the lung bases to the pubic symphysis using 100 cc Isovue 370 intravenous contrast material. Coronal and sagittal reformations obtained. This CT examination was performed using the following dose reduction techniques: Automated exposure control, adjustment of mA and/or kv according to the patient's size, and the use of iterative reconstruction technique. FINDINGS: There is no evidence for solid organ injury. Liver demonstrates fatty infiltration. Spleen, pancreas, bilateral adrenal glands and kidneys are relatively normal/stable. Chronic medical renal disease with cortical thinning and stable simple left renal cyst again noted. Gallbladder demonstrates mild wall thickening which is nonspecific.. The enteric system including stomach, small, and large bowel appears normal. No evidence for obstruction or acute inflammatory process. Normal terminal ileum and appendix are identified in the right lower quadrant. A periumbilical hernia containing fluid is unchanged. Pelvis demonstrates collapsed bladder and age-appropriate uterus/adnexa. A small amount of pelvic free fluid is identified and nonspecific. No ascites. No free air. No intraperitoneal or retroperitoneal adenopathy. Abdominal aorta and vasculature appear normal. Musculoskeletal structures are intact and without acute osseous abnormality/injury. IMPRESSION: 1. Chronic nonacute findings unchanged compared to prior examination. 2. Current examination demonstrates mild nonspecific gallbladder wall thickening which may be correlated with physical examination. A small amount of pelvic free fluid is also identified which is nonspecific and without definite acute etiology. <Electronically signed by Salinas Garcia > 10/07/20 [id number]
[2020-10-07] MEDS ORDERED: LORazepam 0.5 MG TAB PO STA (14:52)
[2020-10-07 14:53] VITALS: BP 113/66
--- NOTE | 2020-10-08 06:18 | ECGEPIP ---
[facility] - ED Test Date: 2020-10-07 Pat Name: MUKESH GUERRERO Department: Room: - Gender: Female Certified Surgical Technician: AMILCAR : 1945 Requested By: Odilia Love Order Number: [id number] Reading MD: Odilia Love Measurements Intervals [place] Rate: 62 P: [place]: QRS: 125 QRSD: 90 T: 212 QT: 404 QTc: 410 Interpretive Statements Undetermined rhythm Demand Ventricular pacing Right axis deviation Possible Right ventricular hypertrophy ST & T wave abnormality, consider inferior ischemia ST & T wave abnormality, consider anterolateral ischemia cw 08/14/[address] T wave changes Electronically Signed on 10-08-2020 6:17:35 EDT by Odilia Love
== END 2020-10-07 15:00 | disposition short-term general hospital (02) ==
LOC: M ED 10:37
DX: S06.360A Traumatic hemorrhage of cerebrum, unspecified, without loss of consciousness, initial encounter (principal); R07.89 Other chest pain; W06.XXXA Fall from bed, initial encounter; Y92.003 Bedroom of unspecified non-institutional (private) residence as the place of occurrence of the external cause; Y93.9 Activity, unspecified; Y99.9 Unspecified external cause status; J91.8 Pleural effusion in other conditions classified elsewhere; I31.3 Pericardial effusion (noninflammatory); I11.0 Hypertensive heart disease with heart failure; I50.9 Heart failure, unspecified; C34.90 Malignant neoplasm of unspecified part of unspecified bronchus or lung; I48.91 Unspecified atrial fibrillation; K21.9 Gastro-esophageal reflux disease without esophagitis; E03.9 Hypothyroidism, unspecified; Z95.0 Presence of cardiac pacemaker; Z88.1 Allergy status to other antibiotic agents; Z88.2 Allergy status to sulfonamides; Z88.6 Allergy status to analgesic agent; Z79.899 Other long term (current) drug therapy; Z79.890 Hormone replacement therapy
CPT/HCPCS: 36415; 70450; 71045; 71250; 71260; 74177; 80047; 80048; 80076; 82550; 82553; 83880; 84484; 85025; 85610; 85730; 86850; 86900; 86901; 87798; 93005; 93041; 93970; 99285; Q9967

== ENCOUNTER 2020-10-25 13:17 | Observation (INO) | payer MEDICARE ==
[~2020-10-25] VITALS: Ht 167.6 cm; Wt 69.8 kg
[~2020-10-25 13:17] MED LIST changes: +GLIM2TAB29 PO; +LEVE500T5 PO; +METO5TA PO; +POTA1TAB23 PO
--- NOTE | 2020-10-25 15:40 | REP ---
INDICATION: lung cancer, cough. COMPARISON: Multiple the latest 10/07/2020 also portable TECHNIQUE: Portable FINDINGS: The technique utilized in obtaining the radiograph has magnified the cardiac silhouette and attenuated the interstitial markings. There is cardiomegaly accentuated by technique. The opacity seen previously in the right lower lobe is essentially unchanged, however, the right pleural effusion appears to have diminished. Left lung is clear and stable. The pacemaker device is unchanged. The MediPort device is unchanged. The osseous structures are unchanged. IMPRESSION: Persistent abnormal right mid lung zone opacity but with some improvement in the previously present right pleural effusion. Consider chest CT so it can be compared to the prior chest CT of 10/07/2020 if clinically relevant. <Electronically signed by Donald Pappas > 10/25/20 1216
[2020-10-25 16:47] LABS: BASO % 0.4 % (0.0-1.0); EOS # 0.2 10^3/uL (0.0-0.5); EOS % 2.4 % (0.0-3.0); HEMATOCRIT 38.2 % (36.0-47.0); HEMOGLOBIN 11.9 g/dl (12.0-15.5); LYMPH # 1.1 10^3/uL (1.5-5.0); LYMPH % 12.8 % (24.0-44.0); MEAN CORPUSCULAR HEMOGLOBIN 25.9 pg (27.0-33.0); MEAN CORPUSCULAR HGB CONC 31.2 g/dl (32.0-36.5); MEAN CORPUSCULAR VOLUME 83.2 fl (80.0-96.0); MONO # 0.9 10^3/uL (0.0-0.8); MONO % 10.5 % (2.0-8.0); NEUTROPHILS # 6.5 10^3/uL (1.5-8.5); NEUTROPHILS % 73.6 % (36.0-66.0); PLATELET COUNT, AUTOMATED 326 10^3/uL (150-450); RED BLOOD COUNT 4.59 10^6/uL (4.00-5.40); WHITE BLOOD COUNT 8.9 10^3/uL (4.0-10.0)
[2020-10-25 17:19] LABS: ALBUMIN 3.5 GM/DL (3.2-5.2); BILIRUBIN,TOTAL 1.6 MG/DL (0.2-1.0); CALCIUM LEVEL 8.8 MG/DL (8.8-10.2); CREATININE FOR GFR 1.28 MG/DL (0.55-1.30); GLOMERULAR FILTRATION RATE 43.4 (>39); MAGNESIUM LEVEL 1.8 MG/DL (1.8-2.4); POTASSIUM SERUM 2.6 MEQ/L (3.5-5.1); TOTAL PROTEIN 6.6 GM/DL (6.4-8.2)
[2020-10-25] MEDS ORDERED: POTASSIUM CHLORIDE 10MEQ SR TABLET PO ONE (17:40)
[2020-10-25] MEDS ORDERED: KCL 10MEQ/100ML SWI (KRUN) 10 MEQ in IV 1 EA IV ONE ×6 (17:40)
[2020-10-25] MEDS ORDERED: AMBI5TAB PO (18:37)
[2020-10-25] MEDS ORDERED: [UNRECOGNIZED DRUG - CODE] TOP (18:37)
[2020-10-25] MEDS ORDERED: HOME MED LIST COMPLETE! XX SCH (18:40)
[2020-10-25] MEDS ORDERED: ALBUTEROL 90 MCG/ACT 8GM HFA INHALER INH PRN (19:05)
[2020-10-25] MEDS ORDERED: FLUTICASONE PROP 0.05% NASAL SPRAY 16 GM (FLONASE) NARES PRN (19:05)
[2020-10-25] MEDS ORDERED: NON-FORMULARY 1 EA EA INH PRN (19:05)
[2020-10-25] MEDS ORDERED: ALPRAZolam 0.5 MG TAB PO PRN (19:05)
[2020-10-25] MEDS ORDERED: MAG SULF 1GM/100ML (MAG RUN) 1 GM in IV 1 EA IV ONE (19:05)
--- NOTE | 2020-10-25 20:04 | MHCRPDOC ---
[facility] Consultation Consultation DATE OF CONSULTATION: 10/25/20 CONSULTATION REQUESTED BY: Hospitalist Team REASON FOR CONSULTATION: depression and safety eval for suicidal statements. RELEVANT HISTORY: 74 year old woman who is seen today after having made statements to the effect of "I don't want to live like this anymore". Was being seen in the ER and evaluated for hypokalemia by the hospitalist team. Patient has been struggling with treatment of her cancer and felt ill/in pain earlier today. During her medical exam she made statements that were initially concerning to the primary team. Suzanne reports that she did not have any desire to kill herself but that she is frustrated with her pain related to her ongoing cancer treatment. In a moment of frustration she spoke her feelings about not wanting to be in pain or needing to manage intense medical care, but did so in a way which the primary team thought may have meant she wanted to end her life. She denies having such thoughts now, or in the past, but does note that she feels depressed. Suzanne expressed interest in meeting with a therapist and/or psychiatrist after discharge for her medical treatment so that she could discuss her emotional needs and potentially receive antidepressant treatment. PAST PSYCHIATRIC HISTORY: Denies a history of past psychiatric contact, denies a history of psychotropic medications, denies past episodes of self-harm or suicide attempts PAST MEDICAL HISTORY: significant medical history including type 2 diabetes, hypertension, COPD, and cancer FAMILY HISTORY: denies a known family history of mental health concerns PERSONAL AND SOCIAL HISTORY: The patient was born and raised in [place]. Resides in: [place] Marital Status: D Children: has a daughter who helps to care for her Employment: retired SUBSTANCE ABUSE HISTORY: denies use of alcohol, nicotine, or any other substances LEGAL HISTORY: denies a history of legal charge MENTAL STATUS EXAMINATION: Patient is a 74-year old female, who is dressed in a hospital gown, being seen via Zoom, makes good eye contact with camera Speech is clear with regular rate, rhythm, and volume. Language skills are intact. Thought processes including: logical, linear, goal-directed Thought content: denies SI, HI, AVH; appears focused on her physical discomfort Abstract reasoning, and computation: intact Description of associations: linear Description of abnormal or psychotic thoughts: denies any AVH, SI, HI; did not appear internally preoccupied Judgment: fair Insight: fair Orientation to x3 Recent and remote memory: intact Attention span and concentration: intact Language: fluent Fund of knowledge: appropriat Mood: irritable Affect: irritable/in pain; congruent with mood and situation DIAGNOSIS: 1. Unspecified Depressive Disorder, r/o depressive disorder secondary to other medical condition PLAN: 1. patient does not appear actively suicidal and denies any plans to hurt herself, 1:1 sitter can be discontinued at primary team's convenience 2. current medication regimen include Alprazolam (may cause disinhibition in elderly/medically compromised patients), Keppra (may cause depression), as well as significant medical comorbidities/medical burden; she may benefit from outpatient management of her mood symptoms. Currently she does not meet criteria for involuntary hospitalization and does not wish to be admitted to psychiatry. Would recommend providing her with resources on psychological services in the area at discharge and would recommend outpatient follow-up with her regular physicians to consider alteration of her regimen and decreasing polypharmacy if possible Vital Signs Vital Signs Date Time Temp Pulse Resp B/P (MAP) Pulse Ox O2 Delivery O2 Flow Rate FiO2 10/25/20 15:46 98.2 68 18 117/68 (84) 96 Room Air Laboratory Data 24H Labs Laboratory Tests 2 10/25/20 15:20: Immature Granulocyte % (Auto) 0.3, Neutrophils (%) (Auto) 73.6H, Lymphocytes (%) (Auto) 12.8L, Monocytes (%) (Auto) 10.5H, Eosinophils (%) (Auto) 2.4, Basophils (%) (Auto) 0.4, Neutrophils # (Auto) 6.5, Lymphocytes # (Auto) 1.1L, Monocytes # (Auto) 0.9H, Eosinophils # (Auto) 0.2, Basophils # (Auto) 0.0, Nucleated Red Blood Cells % (auto) 0.0, Anion Gap 12, Glomerular Filtration Rate 43.4, Calcium Level 8.8, Magnesium Level 1.8, Total Bilirubin 1.6H, Aspartate Amino Transf (AST/SGOT) 23, Alanine Aminotransferase (ALT/SGPT) 28, Alkaline Phosphatase 144H, Total Protein 6.6, Albumin 3.5, Albumin/Globulin Ratio 1.1L Home Medications Current Medications Current Medications Medications (Trade) Dose Ordered Sig/Bhavesh Route PRN Reason Start Time Stop Time Status Last Admin Dose Admin Albuterol Sulfate (Proventil, Ventolin Hfa) 2 puff Q6H PRN INH SOB/WHEEZING 10/25/20 19:05 Allopurinol (Zyloprim) 300 mg DAILY PO 10/26/20 09:00 Alprazolam (Xanax) 1 mg QID PRN PO ANXIETY 10/25/20 19:05 Apixaban (Eliquis) 5 mg BID PO 10/25/20 21:00 Carvedilol (COReg) 6.25 mg BID PO 10/25/20 21:00 Fluticasone Propionate (Flonase 0.05% Nasal [place]) 1 spray BIDP PRN NARES CONGESTION 10/25/20 19:05 Folic Acid (Folic Acid) 1 mg DAILY PO 10/26/20 09:00 Furosemide (Lasix) 40 mg DAILY PO 10/26/20 09:00 10/25/20 19:21 DC Furosemide (Lasix) 60 mg DAILY PO 10/26/20 09:00 Glimepiride (Amaryl) 2 mg DAILY@0800 PO 10/26/20 08:00 Home Med (Home Med List Complete!) ASDIRECTED XX 10/25/20 18:40 10/25/20 18:53 DC Levetiracetam (Keppra) 500 mg BID PO 10/25/20 21:00 Levothyroxine Sodium (Synthroid) 50 mcg DAILY@0600 PO 10/26/20 06:00 Magnesium Oxide (Mag-Ox) 400 mg BID PO 10/25/20 21:00 Metolazone (Zaroxolyn) 5 mg DAILY PO 10/26/20 09:00 Non-Formulary Medication (Non-Formulary 1 Ea Ea) INCRUSE ELLIPTA 62.5... DAILY PRN INH WHEEZE 10/25/20 19:05 UNV Omeprazole (PriLOSEC) 20 mg DAILY PO 10/26/20 09:00 Simvastatin (Zocor) 40 mg QHS PO 10/25/20 21:00 Zolpidem Tartrate (Ambien) 5 mg QHS PO 10/25/20 21:00 Scheduled Apixaban (Eliquis) 5 Mg Tab, 5 MG PO BID, (Reported) Carvedilol (Carvedilol) 12.5 Mg Tab, 6.25 MG PO BID, (Reported) Folic Acid (Folic Acid) 1 Mg Tablet, 1 MG PO DAILY, (Reported) Furosemide (Furosemide) 80 Mg Tablet, 40 MG PO DAILY, (Reported) TAKES WITH 20 MG TAB FOR 60 MG TOTAL DOSE Furosemide (Furosemide) 20 Mg Tablet, 20 MG PO DAILY, (Reported) TAKES WITH 40 MG HALF-TAB FOR 60 MG TOTAL DOSE Glimepiride (Glimepiride) 2 Mg Tablet, 2 MG PO DAILY, (Reported) Levothyroxine Sodium (Levothyroxine Sodium) 50 Mcg Tablet, 50 MCG PO DAILY, (Reported) Magnesium Chloride (Slow-Mag) 71.5 Mg Tablet.dr, 143 MG PO BID, (Reported) Metolazone (Metolazone) 5 Mg Tablet, 5 MG PO DAILY, (Reported) Omeprazole (Omeprazole) 20 Mg Capsule.dr, 20 MG PO DAILY, (Reported) Potassium Chloride (Potassium Chloride) 10 Meq Tablet.er, 10 MEQ PO BID Simvastatin (Simvastatin) 40 Mg Tab, 40 MG PO QHS, (Reported) Zolpidem Tartrate (Ambien) 5 Mg Tablet, 5 MG PO QHS, (Reported) allopurinoL (allopurinoL) 300 Mg Tablet, 300 MG PO DAILY, (Reported) levETIRAcetam (levETIRAcetam) 500 Mg Tablet, 500 MG PO BID, (Reported) Scheduled PRN Albuterol Sulfate (Albuterol Sulfate Hfa) 8.5 Gm Hfa.aer.ad, 2 PUFFS INH Q6H PRN for SOB/WHEEZING, (Reported) Alprazolam (Alprazolam) 1 Mg Tab, 1 MG PO QID PRN for ANXIETY, (Reported) Fluticasone Propionate (Fluticasone Propionate) 16 Gm [place].susp, 1 SPRAY NARES BID PRN for CONGESTION, (Reported) Menthol/Camphor (Anti-Itch Lotion) 222 Ml Lotion, 1 APPLIC TOP TID PRN for FLUID RETENTION, (Reported) Umeclidinium [place] (Incruse Ellipta) 62.5 Mcg Blst.w.dev, 1 PUFF INH DAILY PRN for SHORTNESS OF BREATH, (Reported) Allergies Coded Allergies: ciprofloxacin (Unverified Allergy, Intermediate, HIVES, 07/06/19) Sulfa (Sulfonamide Antibiotics) (Unverified Allergy, Mild, RASH, 10/25/20) codeine (Verified Allergy, Mild, RASH, 10/25/20) diphenhydramine (Verified Allergy, Unknown, CAUSES ITCHING AND ANXIETY, 10/07/19) TERRANCE CHAPARRO MD Oct 25, 2020 20:04
[2020-10-25 21:33] LABS: CREATININE FOR GFR 1.22 MG/DL (0.55-1.30); GLOMERULAR FILTRATION RATE 45.9 (>39); MAGNESIUM LEVEL 1.7 MG/DL (1.8-2.4); POTASSIUM SERUM 2.9 MEQ/L (3.5-5.1)
[2020-10-25] MEDS: levETIRAcetam 250MG TABLET (KEPPRA) PO SCH (21:48)
[2020-10-25] MEDS: CARVedilol 12.5 MG TAB PO SCH (21:49)
[2020-10-25] MEDS: zolPIDEM TARTRATE 5 MG TAB PO SCH (21:49)
[2020-10-25] MEDS: SIMVASTATIN 40 MG TAB PO SCH (21:49)
[2020-10-25] MEDS: APIXABAN 5 MG TAB (ELIQUIS) PO SCH (21:49)
[2020-10-25] MEDS: MAGNESIUM OXIDE 400MG TAB (MAG-OX) PO SCH (21:49)
--- NOTE | 2020-10-26 05:33 | ECGEPIP ---
[facility] - ED Test Date: 2020-10-25 Pat Name: MUKESH GUERRERO Department: Room: - Gender: Female Environmental Department Manager: LENA : 1945 Requested By: JARRET Morel Order Number: [id number] Reading MD: Lisandro Kothari Measurements Intervals [place] Rate: 68 P: [place]: QRS: 115 QRSD: 106 T: 264 QT: 484 QTc: 514 Interpretive Statements Atrial fibrillation Right axis deviation NSTTW ABNORMALITY(S) Prolonged QT SIMILAR TO 10/07/20 Electronically Signed on 10-26-2020 5:32:59 EDT by Lisandro Kothari
[2020-10-26] MEDS: LEVOTHYROXINE 50MCG TABLET (0.05MG) PO SCH (05:49)
[2020-10-26] MEDS ORDERED: POTA1TAB14 PO (07:41)
[2020-10-26] MEDS ORDERED: MAG SULF 1GM/100ML (MAG RUN) 1 GM in IV 1 EA IV ONE (08:00)
[2020-10-26] MEDS ORDERED: CALCIUM GLUCONATE 1,000 MG in D5W MINI-BAG PLUS 100 ML IV ONE (08:00)
[2020-10-26 08:27] LABS: HEMATOCRIT 38.3 % (36.0-47.0); HEMOGLOBIN 11.8 g/dl (12.0-15.5); MEAN CORPUSCULAR HEMOGLOBIN 25.8 pg (27.0-33.0); MEAN CORPUSCULAR HGB CONC 30.8 g/dl (32.0-36.5); MEAN CORPUSCULAR VOLUME 83.8 fl (80.0-96.0); PLATELET COUNT, AUTOMATED 352 10^3/uL (150-450); RED BLOOD COUNT 4.57 10^6/uL (4.00-5.40)
[2020-10-26] MEDS ORDERED: POTASSIUM CHLORIDE 10MEQ SR TABLET PO SCH (09:00)
[2020-10-26] MEDS ORDERED: FUROSEMIDE 80 MG TAB PO SCH (09:00)
[2020-10-26] MEDS: TIOTROPIUM INHALER/CAPSULE (SPIRIVA) INH SCH (09:45)
[2020-10-26] MEDS: GLIMEPIRIDE 2 MG TAB PO SCH (09:57)
[2020-10-26] MEDS: CARVedilol 12.5 MG TAB PO SCH ×2 (09:57→21:21)
[2020-10-26] MEDS: FUROSEMIDE 20 MG TAB PO SCH (09:58)
[2020-10-26] MEDS: OMEPRAZOLE 20 MG CAP PO SCH (09:58)
[2020-10-26] MEDS: levETIRAcetam 250MG TABLET (KEPPRA) PO SCH ×2 (09:58→21:19)
[2020-10-26] MEDS: POTASSIUM CHLORIDE 10MEQ SR TABLET PO SCH ×7 (09:58→18:47)
[2020-10-26] MEDS: metOLazone 5 MG TAB PO SCH (09:58)
[2020-10-26] MEDS: APIXABAN 5 MG TAB (ELIQUIS) PO SCH ×2 (09:58→21:19)
[2020-10-26] MEDS: MAGNESIUM OXIDE 400MG TAB (MAG-OX) PO SCH ×2 (09:58→21:19)
[2020-10-26] MEDS: FOLIC ACID 1 MG TAB PO SCH (09:58)
[2020-10-26] MEDS: allopurinoL 300 MG TAB PO SCH (09:59)
--- NOTE | 2020-10-26 09:59 | HPE ---
HISTORY AND PHYSICAL DATE OF ADMISSION: 10/25/2020 CHIEF COMPLAINT: Severe depression. 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 Salter for TXM2 lung cancer, stage 4 chronic kidney disease, diabetes, hypertension, received radiation in October,, presented to the emergency room via ambulance due to suicidal ideation, severe depression. The patient has had severe guilt about her being a burden to her family and was brought in for further evaluation. She was found to be hypokalemic secondary to diuretic use with potassium of 2.6. Hospitalist was asked to admit the patient for hypokalemia and evaluation of severe depression and suicidal statements. The patient denies any actual suicide plan and says that she was frustrated and depressed due to her recurrent cancer that is terminal. She feels like a burden to her family and was unsure whether they could take care of her. On arrival, she spoke with her daughter who says that the daughter kept taking care of her and all of her family issues have been resolved. She otherwise denies any chest pain, pressure, tightness, shortness of breath, fever, chills. She has had some weight loss, no back pain, dysuria, urgency, frequency, shortness of breath, nausea, vomiting, diarrhea, abdominal pain. The patient has been having some episodes of insomnia, decreased appetite, weight loss. The patient is being admitted for hypokalemia and severe depression. PAST MEDICAL HISTORY: 1. Chronic kidney disease stage 3 based on creatinine of 1.1. 2. Hypertension. 3. Hypertensive heart disease. 4. A fib. 5. Non-small cell lung cancer, status post radiation. 6. CHF. 7. Hypothyroidism. 8. Dyslipidemia. 9. Asthma. 10. Reflux. 11. Peripheral arterial disease. 12. Carotid atherosclerosis. 13. Type 2 diabetes. 14. Anxiety. PAST SURGICAL HISTORY: 1. Bronchoscopy. 2. Thoracentesis. 3. Right Cfljlc-j-Vyyn placement. FAMILY HISTORY: Diabetes, hypertension. SOCIAL HISTORY: Lives with her daughter, ex-smoker, no alcohol or recreational drug use. ALLERGIES: CIPRO, CODEINE, FLOXACIN, SULFA, DIPHENHYDRAMINE. HOME MEDICATIONS: 1. Albuterol. 2. Allopurinol. 3. Xanax. 4. Eliquis. 5. Carvedilol. 6. Folic Acid. 7. Lasix. 8. Levothyroxine. 9. Lisinopril. 10. Prilosec. 11. Potassium. 12. Simvastatin. 13. Ambien. 14. Metformin. 15. Magnesium chloride. REVIEW OF SYSTEMS: 10-point system per HPI, 12-point system otherwise negative. SOCIAL HISTORY: Ex-smoker, retired, no recreational drug use. PHYSICAL EXAMINATION: VITAL SIGNS: Temperature 98.2, pulse 68, respiratory rate 18, blood pressure 117/68, 96% on room air. GENERAL: The patient is irritable, no distress, no use of respiratory accessory muscles, no pallor, icterus or jaundice. HEENT: Dry mucous membranes. LUNGS: Clear to auscultation, no wheezing, rales or rhonchi. HEART: S1, S2, irregularly irregular. Not tachycardic. No murmurs noted. ABDOMEN: Soft, nontender, nondistended. Positive bowel sounds. No rebound or guarding. EXTREMITIES: No cyanosis or clubbing. LABORATORY DATA: White count 8.9, hemoglobin 11, hematocrit 30, platelet count 326, 73% neutrophils. Sodium 133, potassium 2.6, chloride 87, bicarb 34, BUN 54, creatinine 1.28. Glucose 96, calcium 8.8, magnesium 1.8, T bilirubin 1.6, AST 23, ALT 28, alk phos 144, total protein 6.6. Chest x-ray 10/25/2020: Previously abnormal right mid-lung zone opacity but with improvement of previously present right pleural effusion. Consider chest CT so it can be compared with prior chest CT 10/07/2020 if clinically relevant. ASSESSMENT AND PLAN: This is a 74-year-old female with history of chronic kidney disease stage 3, hypertension, A fib, non-small cell lung cancer, status post radiation, chemotherapy, CHF, preserved systolic function, hypothyroidism, dyslipidemia, asthma, reflux, peripheral arterial disease, type 2 diabetes, anxiety and carotid atherosclerosis, admitted due to suicidal ideation, severe depression, found to be hypokalemic. IMPRESSION: 1. Hypokalemia most likely secondary to patient's diuretics. She has been repleted with oral and IV potassium. Replete magnesium. Keep on telemetry. Recheck potassium, magnesium and ionized calcium after supplementation. 2. Severe depression secondary to her lung cancer diagnosis. Psychiatrist, Dr. Caro has been consulted to rule out active suicidal ideation. The patient is severely depressed. Refer to psychiatrist for any recommendations for antidepressants. 3. Hypertension. Currently controlled. Resume on home medications. 4. Atrial fibrillation is rate controlled. 5. Congestive heart failure and diuretics. We will need to start on spironolactone and potassium supplementation and magnesium oxide if needed. 6. Hypothyroidism. Continue on Synthroid. 7. Dyslipidemia, chronic. 8. Asthma, no active wheezing. 9. Peripheral arterial disease, chronic. 10. Type 2 diabetes. Consistent carbohydrate diet. 11. Insulin sliding scale and with coverage. MTDD
[2020-10-26 10:29] LABS: CALCIUM LEVEL 9.3 MG/DL (8.8-10.2); CREATININE FOR GFR 1.07 MG/DL (0.55-1.30); GLOMERULAR FILTRATION RATE 53.4 (>39); MAGNESIUM LEVEL 2.3 MG/DL (1.8-2.4); POTASSIUM SERUM 2.8 MEQ/L (3.5-5.1)
[2020-10-26 11:22] VITALS: BP 110/62
--- NOTE | 2020-10-26 11:43 | IPNPDOC ---
Date Seen The patient was seen on 10/26/20. Progress Note S: c/o weakness. denies suicidal ideation, plan. no c/o cp, sob, palpitations. O: PHYSICAL EXAMINATION: VITAL SIGNS: see below GENERAL:working with physical therapy standing with a walker going up a step. no distress, no use of respiratory accessory muscles, no pallor, icterus or jaundice. HEENT: Dry mucous membranes. LUNGS: Clear to auscultation, no wheezing, rales or rhonchi. HEART: S1, S2, irregularly irregular. Not tachycardic. No murmurs noted. ABDOMEN: Soft, nontender, nondistended. Positive bowel sounds. No rebound or guarding. EXTREMITIES: No cyanosis or clubbing. LABORATORY DATA: see chart ASSESSMENT AND PLAN: This is a 74-year-old female with history of chronic kidney disease stage 3, hypertension, A fib, non-small cell lung cancer, status post radiation, chemotherapy, CHF, preserved systolic function, hypothyroidism, dyslipidemia, asthma, reflux, peripheral arterial disease, type 2 diabetes, anxiety and carotid atherosclerosis, admitted due to suicidal ideation, severe depression, found to be hypokalemic. IMPRESSION: 1. Hypokalemia most likely secondary to patient's diuretics. She has been repleted with oral and IV potassium. Replete magnesium. Keep on telemetry. needs a midline to administer kruns to decrease pain with infusions. Recheck potassium, magnesium and ionized calcium after supplementation. 2. Severe depression secondary to her lung cancer diagnosis. Psychiatrist, Dr. Caro has been consulted and cleared the patient. She does not need counts include [facility] beds at the [facility] admission or sitter. oral antidepressants if pt agrees. 3. Hypertension. Currently controlled. Resume on home medications. 4. Atrial fibrillation is rate controlled. 5. Congestive heart failure and diuretics. We will need to start on spironolactone and potassium supplementation and magnesium oxide if needed. 6. Hypothyroidism. Continue on Synthroid. 7. Dyslipidemia, chronic. 8. Asthma, no active wheezing. 9. Peripheral arterial disease, chronic. 10. Type 2 diabetes. Consistent carbohydrate diet. 11. Insulin sliding scale and with coverage. disposition: dc home if repeat k>3.5 after kruns given. VS, I&O, 24H, Fishbone Vital Signs/I&O Vital Signs Date Time Temp Pulse Resp B/P (MAP) Pulse Ox O2 Delivery O2 Flow Rate FiO2 9/17/21 11:22 97.5 68 18 110/62 (78) 95 10/26/20 06:27 Room Air I&O- Last 24 Hours up to 6 AM 10/26/20 06:00 Intake Total 400 ml Balance 400 ml Laboratory Data 24H LABS Laboratory Tests 2 10/25/20 15:20: Immature Granulocyte % (Auto) 0.3, Neutrophils (%) (Auto) 73.6H, Lymphocytes (%) (Auto) 12.8L, Monocytes (%) (Auto) 10.5H, Eosinophils (%) (Auto) 2.4, Basophils (%) (Auto) 0.4, Neutrophils # (Auto) 6.5, Lymphocytes # (Auto) 1.1L, Monocytes # (Auto) 0.9H, Eosinophils # (Auto) 0.2, Basophils # (Auto) 0.0, Nucleated Red Blood Cells % (auto) 0.0, Anion Gap 12, Glomerular Filtration Rate 43.4, Calcium Level 8.8, Magnesium Level 1.8, Total Bilirubin 1.6H, Aspartate Amino Transf (AST/SGOT) 23, Alanine Aminotransferase (ALT/SGPT) 28, Alkaline Phosphatase 144H, Total Protein 6.6, Albumin 3.5, Albumin/Globulin Ratio 1.1L 10/25/20 21:00: Anion Gap 12, Glomerular Filtration Rate 45.9, Calcium Level 9.0, Magnesium Level 1.7L, Whole Blood Ionized Calcium 4.0L 10/26/20 06:00: Anion Gap 6L, Glomerular Filtration Rate 53.4, Calcium Level 9.3, Magnesium Level 2.3 10/26/20 08:14: Nucleated Red Blood Cells % (auto) 0.0 CBC/BMP Laboratory Tests 10/25/20 15:20 10/25/20 21:00 10/26/20 06:00 10/26/20 08:14 Microbiology Microbiology 10/25/20 Respiratory Virus Panel (PCR) ([facility]) - Final, Complete SORAYA BACA MD Oct 26, 2020 11:43
[2020-10-26] MEDS ORDERED: LIDOCAINE 1% MDV 20ML VIAL As Ordered ONE (12:33)
[2020-10-26] MEDS: KCL 10MEQ/100ML SWI (KRUN) 10 MEQ in IV 1 EA IV SCH ×3 (13:57→16:16)
[2020-10-26 14:00] VITALS: BP 120/47
[2020-10-26] MEDS ORDERED: SODIUM CHLORIDE 0.9% INJ 10 ML SYR IV SCH (14:25)
[2020-10-26] MEDS ORDERED: SODIUM CHLORIDE 0.9% INJ 10 ML SYR IV PRN (14:25)
[2020-10-26] MEDS ORDERED: ACETAMINOPHEN 500 MG TAB PO ONE (14:30)
[2020-10-26] MEDS ORDERED: KCL 10MEQ/100ML SWI (KRUN) 10 MEQ in IV 1 EA IV SCH ×3 (16:00→19:00)
--- NOTE | 2020-10-26 17:00 | REP ---
PROCEDURE NAME: MIDLINE INSERTION W/ SITERITE CLINICAL INFORMATION: kruns. COMPARISON: None. PROCEDURE DESCRIPTION: The procedure was performed by ASAD Burgos, under the direct supervision of Dr. Ng. The risks and benefits of the procedure were explained to the patient and an informed consent was obtained both verbally and written. Directly prior to the start of the procedure a formal time-out was completed in the procedure room. The right cephalic vein was localized using ultrasound guidance. The skin was prepped and draped in sterile fashion. One mL of 1% lidocaine 10 mg/mL was used as a local anesthetic. Using ultrasound guidance the right cephalic vein was cannulated, and a 0.018 guidewire was inserted. The needle was removed and a 4.5 [place] dilator and peel-away sheath was inserted over the guidewire. A 4.5 [place] single lumen catheter was cut to a length of 15 cm. The dilator was removed and the catheter was inserted over the guidewire. The peel-away sheath was removed and the catheter was flushed with heparinized saline as per hospital protocol. The catheter was affixed to the skin and a sterile dressing was applied. The patient tolerated the procedure well and there were no immediate complications. CONCLUSION: Mid line insertion into the right cephalic vein. <Electronically signed by Destiny Donaldson > 10/26/20 1539 <Electronically signed by Stu Ng > 10/26/20 0457
[2020-10-26] MEDS: SIMVASTATIN 40 MG TAB PO SCH (21:19)
[2020-10-26] MEDS: zolPIDEM TARTRATE 5 MG TAB PO SCH (21:21)
[2020-10-26 22:00] VITALS: BP 102/60
[2020-10-27] MEDS: LEVOTHYROXINE 50MCG TABLET (0.05MG) PO SCH (05:31)
[2020-10-27 06:00] VITALS: BP 122/69
[2020-10-27 06:04] LABS: HEMATOCRIT 36.3 % (36.0-47.0); HEMOGLOBIN 11.4 g/dl (12.0-15.5); MEAN CORPUSCULAR HGB CONC 31.4 g/dl (32.0-36.5); MEAN CORPUSCULAR VOLUME 82.9 fl (80.0-96.0); PLATELET COUNT, AUTOMATED 318 10^3/uL (150-450); RED BLOOD COUNT 4.38 10^6/uL (4.00-5.40); WHITE BLOOD COUNT 7.8 10^3/uL (4.0-10.0)
[2020-10-27 06:20] LABS: CALCIUM LEVEL 9.1 MG/DL (8.8-10.2); CREATININE FOR GFR 1.14 MG/DL (0.55-1.30); GLOMERULAR FILTRATION RATE 49.6 (>39); MAGNESIUM LEVEL 2.2 MG/DL (1.8-2.4); POTASSIUM SERUM 4.9 MEQ/L (3.5-5.1)
[2020-10-27] MEDS: TIOTROPIUM INHALER/CAPSULE (SPIRIVA) INH SCH (07:43)
[2020-10-27] MEDS: OMEPRAZOLE 20 MG CAP PO SCH (08:16)
[2020-10-27] MEDS: metOLazone 5 MG TAB PO SCH (08:17)
[2020-10-27] MEDS: FUROSEMIDE 20 MG TAB PO SCH (08:17)
[2020-10-27] MEDS: FOLIC ACID 1 MG TAB PO SCH (08:17)
[2020-10-27] MEDS: MAGNESIUM OXIDE 400MG TAB (MAG-OX) PO SCH (08:17)
[2020-10-27 08:18] VITALS: BP 104/61
[2020-10-27] MEDS: CARVedilol 12.5 MG TAB PO SCH (08:18)
[2020-10-27] MEDS: levETIRAcetam 250MG TABLET (KEPPRA) PO SCH (08:18)
[2020-10-27] MEDS: allopurinoL 300 MG TAB PO SCH (08:18)
[2020-10-27] MEDS: APIXABAN 5 MG TAB (ELIQUIS) PO SCH (08:18)
[2020-10-27] MEDS: GLIMEPIRIDE 2 MG TAB PO SCH (09:07)
--- NOTE | 2020-10-27 10:59 | DS.PDOC ---
Discharge Summary General Date of Admission Oct 25, 2020 at 13:18 Date of Discharge October 27, 2020 Discharge Summary DISCHARGE DIAGNOSES: Suicidal statement Severe depression Hypokalemia Poor IV access requiring midline catheter insertion Metastatic non-small cell lung cancer, status post radiation, chemotherapy, stage IV with brain metastasis history of chronic kidney disease stage 3, hypertension, A fib, CHF, preserved systolic function, hypothyroidism, dyslipidemia, asthma, Gastroesophageal reflux, peripheral arterial disease, type 2 diabetes, anxiety and carotid atherosclerosis, PROCEDURES PERFORMED DURING STAY: Midline catheter insertion due to poor IV access and irritating 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 DISCHARGE MEDICATIONS: SEE BELOW DISCHARGE INSTRUCTIONS: Primary care physician and supply chain assistant appointment within 1 week of discharge to check for electrolyte abnormalities Medical oncology radiation oncology as previously scheduled HOSPITAL COURSE: This is a 74-year-old female with history of chronic kidney disease stage 3, hypertension, A fib, non-small cell lung cancer, status post radiation, chemotherapy, CHF, preserved systolic function, hypothyroidism, dyslipidemia, asthma, reflux, peripheral arterial disease, type 2 diabetes, anxiety and carotid atherosclerosis, admitted due to suicidal ideation, severe depression, found to be hypokalemic. 1. Hypokalemia most likely secondary to patient's diuretics. She has been repleted with oral and IV potassium. Repletedmagnesium. Keep on telemetry. needs a midline to administer kruns to decrease pain with infusions. Recheck potassium, magnesium and ionized calcium after supplementation. 2. Severe depression secondary to her lung cancer diagnosis. Psychiatrist, Dr. Caro has been consulted and cleared the patient. She does not need [facility] admission or sitter. oral antidepressants if pt agrees. 3. Hypertension. Currently controlled. Resume on home medications. 4. Atrial fibrillation is rate controlled. 5. Congestive heart failure and diuretics. We will need to start on spironolactone and potassium supplementation and magnesium oxide if needed. 6. Hypothyroidism. Continue on Synthroid. 7. Dyslipidemia, chronic. 8. Asthma, no active wheezing. 9. Peripheral arterial disease, chronic. 10. Type 2 diabetes. Consistent carbohydrate diet. 11. Insulin sliding scale and with coverage. DISCHARGE PHYSICAL EXAMINATION: VITAL SIGNS: see below GENERAL: no distress, no use of respiratory accessory muscles, no pallor, icterus or jaundice. HEENT: Dry mucous membranes. No JVD thyromegaly or cervical lymphadenopathy LUNGS: Clear to auscultation, no wheezing, rales or rhonchi. HEART: S1, S2, irregularly irregular. Not tachycardic. No murmurs noted. ABDOMEN: Soft, nontender, nondistended. Positive bowel sounds. No rebound or guarding. EXTREMITIES: No cyanosis or clubbing. DISCHARGE LABORATORY DATA/imaging/microbiology: see chart TIME SPENT ON DISCHARGE: 30 MINUTES Vital Signs/I&Os Vital Signs Date Time Temp Pulse Resp B/P (MAP) Pulse Ox O2 Delivery O2 Flow Rate FiO2 10/27/20 08:18 78 104/61 10/27/20 06:00 97.0 18 95 Room Air I&O- Last 24 Hours up to 6 AM 10/27/20 06:00 Intake Total 1385 ml Output Total 0 ml Balance 1385 ml Laboratory Data Labs 24H Laboratory Tests 2 10/26/20 15:21: Whole Blood Ionized Calcium 4.5 10/27/20 05:45: Nucleated Red Blood Cells % (auto) 0.0, Anion Gap 7L, Glomerular Filtration Rate 49.6, Calcium Level 9.1, Magnesium Level 2.2 CBC/BMP Laboratory Tests 10/26/20 11:47 10/26/20 15:21 10/26/20 19:02 10/27/20 05:45 Microbiology Microbiology 10/25/20 Respiratory Virus Panel (PCR) ([facility]) - Final, Complete Discharge Medications Scheduled Apixaban (Eliquis) 5 Mg Tab, 5 MG PO BID, (Reported) Carvedilol (Carvedilol) 12.5 Mg Tab, 6.25 MG PO BID, (Reported) Folic Acid (Folic Acid) 1 Mg Tablet, 1 MG PO DAILY, (Reported) Furosemide (Furosemide) 80 Mg Tablet, 40 MG PO DAILY, (Reported) TAKES WITH 20 MG TAB FOR 60 MG TOTAL DOSE Furosemide (Furosemide) 20 Mg Tablet, 20 MG PO DAILY, (Reported) TAKES WITH 40 MG HALF-TAB FOR 60 MG TOTAL DOSE Glimepiride (Glimepiride) 2 Mg Tablet, 2 MG PO DAILY, (Reported) Levothyroxine Sodium (Levothyroxine Sodium) 50 Mcg Tablet, 50 MCG PO DAILY, (Reported) Magnesium Chloride (Slow-Mag) 71.5 Mg Tablet.dr, 143 MG PO BID, (Reported) Metolazone (Metolazone) 5 Mg Tablet, 5 MG PO DAILY, (Reported) Omeprazole (Omeprazole) 20 Mg Capsule.dr, 20 MG PO DAILY, (Reported) Potassium Chloride (Potassium Chloride) 20 Meq Tablet.er, 40 MEQ PO DAILY Simvastatin (Simvastatin) 40 Mg Tab, 40 MG PO QHS, (Reported) Zolpidem Tartrate (Ambien) 5 Mg Tablet, 5 MG PO QHS, (Reported) allopurinoL (allopurinoL) 300 Mg Tablet, 300 MG PO DAILY, (Reported) levETIRAcetam (levETIRAcetam) 500 Mg Tablet, 500 MG PO BID, (Reported) Scheduled PRN Albuterol Sulfate (Albuterol Sulfate Hfa) 8.5 Gm Hfa.aer.ad, 2 PUFFS INH Q6H PRN for SOB/WHEEZING, (Reported) Alprazolam (Alprazolam) 1 Mg Tab, 1 MG PO QID PRN for ANXIETY, (Reported) Fluticasone Propionate (Fluticasone Propionate) 16 Gm [place].susp, 1 SPRAY NARES BID PRN for CONGESTION, (Reported) Menthol/Camphor (Anti-Itch Lotion) 222 Ml Lotion, 1 APPLIC TOP TID PRN for FLUID RETENTION, (Reported) Umeclidinium [place] (Incruse Ellipta) 62.5 Mcg Blst.w.dev, 1 PUFF INH DAILY PRN for SHORTNESS OF BREATH, (Reported) Allergies Coded Allergies: ciprofloxacin (Unverified Allergy, Intermediate, HIVES, 07/06/19) Sulfa (Sulfonamide Antibiotics) (Unverified Allergy, Mild, RASH, 10/25/20) codeine (Verified Allergy, Mild, RASH, 10/25/20) diphenhydramine (Verified Allergy, Unknown, CAUSES ITCHING AND ANXIETY, 10/07/19) SORAYA BACA MD Oct 27, 2020 10:59
[2020-11-02] MEDS ORDERED: POTA1TAB23 (11:18)
[2020-11-02] MEDS ORDERED: ZOLP5TAB (11:18)
[2020-11-02] MEDS ORDERED: DEXA4TA PO (11:54)
== END 2020-10-27 10:55 | disposition home or self-care (01) ==
LOC: M ED 13:17 → EDBD 13:17 → M ED INP 13:18 → ENRESERV 10-26 10:10 → M MSPAV 10-26 11:13
PROVIDERS: ADMIT General Practice; ATTEND General Practice
DX: R45.851 Suicidal ideations (principal); F32.2 Major depressive disorder, single episode, severe without psychotic features; E87.6 Hypokalemia; C34.90 Malignant neoplasm of unspecified part of unspecified bronchus or lung; C79.31 Secondary malignant neoplasm of brain; Z92.21 Personal history of antineoplastic chemotherapy; Z92.3 Personal history of irradiation; N18.30 Chronic kidney disease, stage 3 unspecified; I13.10 Hypertensive heart and chronic kidney disease without heart failure, with stage 1 through stage 4 chronic kidney disease, or unspecified chronic kidney disease; I48.91 Unspecified atrial fibrillation; I50.9 Heart failure, unspecified; E03.9 Hypothyroidism, unspecified; E78.5 Hyperlipidemia, unspecified; J45.909 Unspecified asthma, uncomplicated; K21.9 Gastro-esophageal reflux disease without esophagitis; I73.9 Peripheral vascular disease, unspecified; E11.59 Type 2 diabetes mellitus with other circulatory complications; F41.9 Anxiety disorder, unspecified; I65.29 Occlusion and stenosis of unspecified carotid artery; J44.9 Chronic obstructive pulmonary disease, unspecified; R53.1 Weakness; Z79.899 Other long term (current) drug therapy; Z79.84 Long term (current) use of oral hypoglycemic drugs; Z79.01 Long term (current) use of anticoagulants; Z88.1 Allergy status to other antibiotic agents; Z88.2 Allergy status to sulfonamides; Z88.5 Allergy status to narcotic agent; Z88.8 Allergy status to other drugs, medicaments and biological substances; Z87.891 Personal history of nicotine dependence
CPT/HCPCS: 36410; 36415; 71045; 76937; 80048; 80053; 82330; 83735; 84132; 85025; 85027; 87798; 93005; 96365; 96366; 96367; 96368; 97116; 97161; 99285; C1751; G0378; J0610; J1642; J1644; J3475

== ENCOUNTER → 2020-11-02 | Outpatient (CLI) | payer MEDICARE ==
[~2020-11-02] MED LIST changes: +AMBI5TAB PO; +DEXA4TA PO; +ISOVUE-370 76% 100ML VIAL As Ordered ONE; +POTA1TAB14 PO; +POTA1TAB23; +ZOLP5TAB; +[UNRECOGNIZED DRUG - CODE] TOP
--- NOTE | 2020-11-02 14:26 | REP ---
INDICATION: BRAIN METASTASES FROM LUNG CANCER RT PLANNING. COMPARISON: Comparison head CT study is from October 07, 2020 and March 06, 2016. TECHNIQUE: CT contrast dose: 75 ml as Isovue 370 as administered intravenously. Pre and post contrast helical scanning is included. FINDINGS: Digital preliminary master baker radiograph is unremarkable. An intact bony calvarium is seen. Visualized paranasal sinuses are clear. No intraorbital abnormality is appreciated. Vascular calcification is noted in the distal internal carotid arteries. On soft tissue window settings, there is a old area of periventricular white matter low density consistent with encephalomalacia in the left posterior frontal lobe. This is unchanged from the 2017 prior study. There is generalized volume loss. In addition, today's study again demonstrates a enhancing high attenuation nodular lesion in the periventricular white matter of the right parietal lobe with surrounding vasogenic edema. This area of nodular enhancement measures 2.3 x 1.5 by 1.2 cm. No other abnormal contrast enhancement is appreciated. Enhancement is seen in normal vascular structures. The precontrast study CT study again demonstrates hyperdensity within the central portion of the right parietal lesion unchanged from October 07 2020. IMPRESSION: There is a solitary high-density enhancing periventricular nodular lesion in the right parietal lobe with surrounding vasogenic edema consistent with an intracranial metastatic lesion. There is old encephalomalacia in the left posterior frontal lobe unchanged from 2017 prior study. <Electronically signed by Anjum White > 11/02/20 [id number]
== END ==
LOC: M RAD 13:34
PROVIDERS: ATTEND General Practice
DX: C79.31 Secondary malignant neoplasm of brain (principal)
CPT/HCPCS: 70470; Q9967

== ENCOUNTER → 2020-11-02 | Outpatient (CLI) | payer MEDICARE ==
[~2020-11-02] MED LIST changes: -ISOVUE-370 76% 100ML VIAL As Ordered ONE
--- NOTE | 2020-11-02 14:28 | RADONC ---
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 She completed chemoradiation 60 Gy in 30 fractions from 09/22/19- 11/03/19. She then continued on adjuvant durvalumab with Dr. Castellon, her dosing of this has been intermittent. She preferred to follow solely with medical oncology upon completion of her treatment. She presented to the ED on 10/07/20 with increased SOB, and GASPAR and underwent head CT which showed a right frontal and left frontoparietal metastatic lesions with surrounding edema, because of this finding she was transferred to [facility] for neurosurgical evaluation, where she was started on Keppra 1000 mg BID, she did not receive steroids, and she did not have evidence of seizure. She is seen today at the request of Dr. Castellon for consideration of RT for brain metastases. Diagnosis/Treatment History Oncologic History As above Recent data: MRI contraindicated due to AICD 10/07/20 CT head Right frontoparietal metastasis 2.2 x 1.6 cm Left frontal metastasis 1.7 x 1 cm Surrounding vasogenic edema Interval History Suzanne is here with her daughter. She has been weaned to 500 mg daily on the keppra because since starting the drug she has had psychotic episodes and thou ghts of self harm. Thankfully she has no suicidal ideation or intent today. She has no received steroids since diagnosis of brain metastases. She complains of GASPAR today, constant, has been present for days at a time. Nothing improves the GASPAR. She has had intermittent nausea, without vomiting and decreased appetite. She has been losing weight. She denies seizures, abnormal movements, focal weakness or numbness. Current Therapy Duvalumab on hold Stage Right upper lobe NSCLC [id number] stage MELANIA Social History: 50+ year former smoker Does not drink Allergies / Meds Allergies: Coded Allergies: ciprofloxacin (Unverified Allergy, Intermediate, HIVES, 07/06/19) Sulfa (Sulfonamide Antibiotics) (Unverified Allergy, Mild, RASH, 10/25/20) codeine (Verified Allergy, Mild, RASH, 10/25/20) diphenhydramine (Verified Allergy, Unknown, CAUSES ITCHING AND ANXIETY, 10/07/19) Home Meds Active Scripts Dexamethasone (Dexamethasone) 4 Mg Tablet, 4 MG PO BID, #30 TAB Prov:JAQUI ALVARENGA MD 11/02/20 Potassium Chloride (Potassium Chloride) 20 Meq Tablet.er, 40 MEQ PO DAILY for 20 Days, #40 TAB Prov:SORAYA BACA MD 10/26/20 Reported Medications Potassium Chloride (Potassium Chloride) 10 Meq Tablet.er 11/02/20 Zolpidem Tartrate (Zolpidem Tartrate) 5 Mg Tablet 11/02/20 Zolpidem Tartrate (Ambien) 5 Mg Tablet, 5 MG PO QHS 10/25/20 Menthol/Camphor (Anti-Itch Lotion) 222 Ml Lotion, 1 APPLIC TOP TID PRN for FLUID RETENTION 10/25/20 Metolazone (Metolazone) 5 Mg Tablet, 5 MG PO DAILY 10/24/20 Furosemide (Furosemide) 20 Mg Tablet, 20 MG PO DAILY TAKES WITH 40 MG HALF-TAB FOR 60 MG TOTAL DOSE 10/24/20 Furosemide (Furosemide) 80 Mg Tablet, 40 MG PO DAILY TAKES WITH 20 MG TAB FOR 60 MG TOTAL DOSE 10/07/20 Glimepiride (Glimepiride) 2 Mg Tablet, 2 MG PO DAILY 10/07/20 allopurinoL (allopurinoL) 300 Mg Tablet, 300 MG PO DAILY 09/03/20 Folic Acid (Folic Acid) 1 Mg Tablet, 1 MG PO DAILY 08/14/20 Fluticasone Propionate (Fluticasone Propionate) 16 Gm [place].susp, 1 SPRAY NARES BID PRN for CONGESTION 08/14/20 Albuterol Sulfate (Albuterol Sulfate Hfa) 8.5 Gm Hfa.aer.ad, 2 PUFFS INH Q6H PRN for SOB/WHEEZING 06/17/20 Levothyroxine Sodium (LEVOTHYROXINE SODIUM) 50 Mcg Tablet, 50 MCG PO DAILY 06/04/20 Umeclidinium [place] (Incruse Ellipta) 62.5 Mcg Blst.w.dev, 1 PUFF INH DAILY PRN for SHORTNESS OF BREATH 05/25/20 Magnesium Chloride (Slow-Mag) 71.5 Mg Tablet.dr, 143 MG PO BID 05/21/20 Omeprazole (Omeprazole) 20 Mg Capsule.dr, 20 MG PO DAILY, CAP 06/29/19 Simvastatin (Simvastatin) 40 Mg Tab, 40 MG PO QHS 03/05/16 Alprazolam (Alprazolam) 1 Mg Tab, 1 MG PO QID PRN for ANXIETY, TAB 03/05/16 Carvedilol (Carvedilol) 12.5 Mg Tab, 6.25 MG PO BID, TAB 03/05/16 Apixaban (Eliquis) 5 Mg Tab, 5 MG PO BID, TAB 03/05/16 Discontinued Reported Medications levETIRAcetam (levETIRAcetam) 500 Mg Tablet, 500 MG PO BID 10/24/20 Discontinued Scripts Potassium Chloride (Potassium Chloride) 10 Meq Tablet.er, 10 MEQ PO BID for 30 Days, #60 TAB 3 Refills Prov:PAWEL CASTELLON MD 10/24/20 Review of Systems Review of Systems Constitutional: Reports: Fatigue, Weight Loss Eyes: Denies: Pain, Vision change HEENT: Reports: Head Aches Skin: Denies: Rash Pulmonary: Reports: Dyspnea, Cough Cardiovascular: Reports: Edema; Denies: Chest Pain Gastrointestinal: Reports: Nausea; Denies: Vomiting, Abdominal Pain Hematologic: Denies: Bruising, Bleeding Excessively Musculoskeletal: Denies: Neck pain, Back pain Neurological: Denies: Weakness, Numbness Psych: Reports: Mood Normal; Denies: Thoughts of Self Harm Physical Examination Vital Signs Wt 150 lbs (from 183 lbs 11/03/19) T 98 P 76 RR 20 BP 160/82 O2 96% Pain 0 Fatigue 1 General Exam: Alert, Cooperative, No Acute Distress Eye Exam: PERRLA, EOMI ENT EXAM: Atraumatic, Pharynx Normal Neck Exam: Supple; Negative: Lymphadenopathy Extremity Exam: Edema Skin Exam: Nl turgor and temperature Neuro Exam: Normal Gait, Normal Speech, Cranial Nerves 3-12 NL Psych Exam: Mental status NL, Mood NL, Memory Intact, Oriented x 3 Diagnostic and Laboratory Diagnostic Review Radiologic images, relevant labs and pathology reports were personally reviewed and discussed with Ms. Naranjo. Assessment and Plan Impression Assessment Ms. 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 She completed chemoradiation 60 Gy in 30 fractions from 09/22/19-11/03/19. She then continued on adjuvant durvalumab with Dr. Castellon, her dosing of this has been intermittent. She preferred to follow solely with medical oncology upon completion of her treatment. She presented to the ED on 10/07/20 with increased SOB, and GASPAR and underwent head CT which showed a right frontal and left frontoparietal metastatic lesions with surrounding edema, because of this finding she was transferred to [facility] for neurosurgical evaluation, where she was started on Keppra 1000 mg BID, she did not receive steroids, and she did not have evidence of seizure. She is seen today at the request of Dr. Castellon for consideration of RT for brain metastases. She cannot have MRI scans due to her AICD, she does tolerate IVC however so I will obtain an updated CT brain with IVC for RT planning purposes. I explained that because of her symptoms she should have received decadron rather than AEDs, for which there is no indication unless she had a clinical seizure. I will start her on 4 mg BID decadron, which should resolve her GASPAR and nausea. I asked that the keppra be stopped entirely next Thursday, which would be after 1 week on 500 mg daily. Thus the wean will be appropriately timed. For treatment as she has no evidence of disease in the body and only 2 discernible lesions I recommend SRS 27 Gy in 3 fractions to each lesion with a monoisoccentric VMAT planning approach. This offers the best chance of local control for these individual lesions and no risk of neurocognitive sequelae. I did discuss that the risk of RT necrosis is 5-10% per lesion and may manifest months after treatment is completed. She agreed to proceed. Simulation will occur next week. Performance Status ECOG 2 Plan SRS to the left frontal and right frontoparietal lesions 27 Gy in 3 fractions with VMAT Repeat CT head with IVC now Start decadron 4 mg BID, will wean as able Stop keppra Simulation early next week Ms. Naranjo was encouraged to call with questions or concerns in the interim period. Billing Statement Total time of [36] minutes was spent preparing for the visit [3], obtaining HPI [6], examining the patient [3], reviewing diagnostic tests [4], discussing management options [10], coordinating care [2], and writing this note [8]. JAQUI ALVARENGA MD Nov 02, 2020 14:28
== END ==
LOC: M ONCR 10:46
PROVIDERS: ATTEND General Practice
DX: C79.31 Secondary malignant neoplasm of brain (principal); C34.91 Malignant neoplasm of unspecified part of right bronchus or lung; R11.0 Nausea; R63.8 Other symptoms and signs concerning food and fluid intake; Z79.890 Hormone replacement therapy; Z79.899 Other long term (current) drug therapy; Z87.891 Personal history of nicotine dependence; Z88.1 Allergy status to other antibiotic agents; Z88.2 Allergy status to sulfonamides; Z88.5 Allergy status to narcotic agent; Z88.8 Allergy status to other drugs, medicaments and biological substances; Z95.810 Presence of automatic (implantable) cardiac defibrillator

== ENCOUNTER 2020-11-05 13:37 | Outpatient (RCR) | payer MEDICARE | END 2020-11-08 | LOC: M ONCR 13:37 | PROVIDERS: ATTEND General Practice | DX: C79.31 Secondary malignant neoplasm of brain (principal) ==

== ENCOUNTER → 2020-11-12 | Outpatient (CLI) | payer MEDICARE ==
--- NOTE | 2020-11-12 16:51 | RADENCPD ---
Date/Time of Encounter Date of Encounter: Nov 12, 2020 Time of Encounter: 16:46 Encounter Met with Suzanne and Mely (daughter) today. Mely has noticed a precipitous decline in Suzanne's PS since Thursday. On Thu. she stated Klonopin 1 mg BID and Prozac. On Thursday she had an unwitnessed fall at home and since has been alert but sleepy no focal neuro symptoms. Discussed that I think the Klonopin may be over sedating Suzanne. At any rate should hold this medication and monitor over the coming days for improvement. Will hold on SRS to the brain lesion. Can continue decadron 4 mg BID. Will follow up by phone on 11/19/20 and ascertain whether Suzanne wants to continue treatment. Discussed at length that hospice would be the alternative and what that would entail. JAQUI ALVARENGA MD Nov 12, 2020 16:51
== END ==
LOC: M ONCR 15:36
PROVIDERS: ATTEND General Practice
DX: C34.11 Malignant neoplasm of upper lobe, right bronchus or lung (principal); C79.31 Secondary malignant neoplasm of brain